=== PATIENT | male | born 1970 | race Caucasian/White ===

== ENCOUNTER 2025-02-23 12:32 | Observation (INO) | payer OTHER, SELFPAY ==
[2025-02-23] VITALS (11 sets, daily range): BP systolic 103–164; BP diastolic 73–99; PULSE 64–104; RESP 16–22; TEMP 36.1–36.7; O2SAT 100; BMI 37.9
--- NOTE | ~2025-02-23 | CT_ITS ---
CLINICAL INDICATION: Staging for renal cancer COMPARISON: None. TECHNIQUE: Multiple contiguous axial images of the chest was performed following the administration o f intravenous contrast. This CT examination was performed utilizing dose reduction techniques. DLP: 918 mGy-cm FINDINGS/OBSERVATIONS: LUNG: The lungs are clear. HEART: The heart is of normal size, without pericardial effusion. MEDIASTINUM: No pathologically enlarged or morphologically suspicious lymph nodes are identified within the medias tinum, bilateral axilla, within the soft tissues of the anterior chest wall. SOFT TISSUES OF THE CHEST: Unremarkable. BONES OF THE CHEST: No acute fracture. No lytic or blastic lesions are identified. IMPRESSION: No evidence of metastatic disease in the chest, as detailed above Reviewed, dictated and finalized at location A.
--- NOTE | ~2025-02-23 | CT_ITS ---
EXAMINATION: CT shoulder LT wo con DATE: 02/25/2025 13:35 INDICATION: Left shoulder pain TECHNIQUE: High resolution computed tomography (CT) of the left shoulder was performed without intrav enous contrast. Additional sagittal and coronal reconstructions were performed. Automated exposure co ntrol and iterative reconstruction technique were employed. The dose-length product was 567.92 mGy-cm . COMPARISON: None FINDINGS: Bone alignment is normal. No fracture. Moderate left glenohumeral osteoarthritis with prominent subar ticular cystic changes along the superior to posterior rim of the glenoid consistent with overlying h igh-grade chondromalacia. No glenohumeral joint effusion. Mild osteoarthritis at the left acromioclav icular joint. There are a few small dystrophic soft tissue calcifications along the greater tuberosit y at the distal supraspinatus and infraspinatus tendons consistent with calcific tendinitis. Visualiz ed portion of the lungs are clear. Heart size is normal. No pathologically enlarged left cervical, ax illary, mediastinal or hilar lymphadenopathy. IMPRESSION: 1. Moderate left glenohumeral osteoarthritis with high-grade chondromalacia along the superior to pos terior glenoid. 2. Left supraspinatus and infraspinatus calcific tendinitis. Reviewed, dictated and finalized at location A. IMPRESSION: 1. Moderate left glenohumeral osteoarthritis with high-grade chondromalacia german ng the superior to posterior glenoid. 2. Left supraspinatus and infraspinatus calcific tendinitis.
--- NOTE | ~2025-02-23 | XR_ITS ---
EXAMINATION: XR chest 1V DATE: 02/23/2025 14:13 INDICATION: Cough and shortness of breath TECHNIQUE: AP view of the chest was obtained. COMPARISON: None FINDINGS: The lungs are clear with no focal airspace opacities, pulmonary edema, pleural effusion or pneumothor ax. The cardiomediastinal silhouette is normal. IMPRESSION: 1. No acute cardiopulmonary disease. Reviewed, dictated and finalized at location B.
--- NOTE | ~2025-02-23 | CT_ITS ---
CTA brain carotid Ordering provider: Abraham Roberts History: . TIA . Progressive weakness Comparison: None Technique: CT angiogram head and neck was performed following timed intravenous injection of contrast . Thin slice axial images and reformatted coronal images were obtained. Three dimensional reformatted images of the brain were also obtained using a [employer] workstation. DLP: 2006.9 mGy-cm FINDINGS: HEAD: --ANTERIOR AND MIDDLE CEREBRAL ARTERIES AND BRANCHES: Normal caliber and contour. --INTERNAL CAROTID ARTERIES: Mild atheromatous disease (right greater than left) but no significant s tenosis. No occlusion. --BASILAR ARTERY AND BRANCHES: Normal caliber and contour. No atheromatous disease. --POSTERIOR CEREBRAL ARTERIES: Normal caliber and contour --POSTERIOR COMMUNICATING ARTERIES: Not well visualized likely related to congenital absence or small size. --ANEURYSM: None visualized. --BRAIN: The ventricles are normal in size, shape and position. There is no mass, mass effect or midline shift. There is no abnormal extra-axial fluid collection or intracranial hemorrhage. 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 Remaining paranasal sinuses are unremarkable. The mastoid air cells are well aerated. No acute displaced fractures within the overlying cranium. NECK: --RIGHT CERVICAL CAROTID SYSTEM: Trace atheromatous disease of the carotid bulb and proximal internal carotid artery without significant stenosis. Percent stenosis per NASCET criteria is 6% No carotid dissection. --LEFT CERVICAL CAROTID SYSTEM: Mild soft appearing atheromatous disease of the carotid bulb and prox imal internal carotid artery without significant stenosis. Percent stenosis per NASCET criteria is 9 %. No carotid dissection. --VERTEBRAL ARTERIES: Calcified bilaterally at their origin, right greater than left. Otherwise sindy l caliber and contour. --VISUALIZED AORTIC ARCH AND BRANCHING VESSELS: Mild atheromatous disease but no significant stenosis . --SOFT TISSUES: Unremarkable --CERVICAL SPINE: Age appropriate degenerative changes. IMPRESSION: 1. Mild atherosclerotic disease detected bilaterally. Percent stenosis per NASCET criteria is 6% on the right (calcified) and 9% on the left (soft appearing). 2. No acute intracranial hemorrhage or suspicious mass effect. Reviewed, dictated and finalized at location A. IMPRESSION: 1. Mild atherosclerotic disease detected bilaterally. Percent stenosis per ALEK CET criteria is 6% on the right (calcified) and 9% on the left (soft appearing ). 2. No acute intracranial hemorrhage or suspicious mass effect.
--- NOTE | ~2025-02-23 | US_ITS ---
EXAMINATION: US renal BI DATE: 02/26/2025 13:52 INDICATION: Acute renal insufficiency TECHNIQUE: Multiple ultrasound grayscale images of the kidneys were obtained. COMPARISON: None. FINDINGS: The right kidney measures 14.7 x 2.1 x 7.4 cm. The left kidney measures 14.5 x 6.9 x 6.5 cm. The kidn eys demonstrate normal echogenicity. 8.8 x 8.2 x 7.9 cm heterogeneously hypoechoic exophytic mass margaret sing from the lower pole of the right kidney concerning for renal cell carcinoma. There is no hydrone phrosis in either kidney. No stones identified. The bladder is normal. IMPRESSION: 1. 8.8 cm exophytic mass which appears to arise from the lower pole the right kidney which is concer verenice for renal cell carcinoma. Recommend pre and postcontrast MRI or CT for further evaluation. Reviewed, dictated and finalized at location A. IMPRESSION: 1. 8.8 cm exophytic mass which appears to arise from the lower pole the right kidney which is concerning for renal cell carcinoma. Recommend pre and postcont rast MRI or CT for further evaluation.
--- NOTE | ~2025-02-23 | CT_ITS ---
CT of the Abdomen and Pelvis: Indication: Right renal mass Technique: 2.5 mm axial scans were obtained through the abdomen and pelvis prior to and following in travenous administration of 100 cc of Omnipaque 350. Dose reduction technique was used on this scan b y utilizing automated exposure control and iterative reconstruction technique. The dose-length produc t (DLP) was 2478.69 mGy-cm. Findings: Scans through the lung bases are unremarkable. The liver, spleen, pancreas, gallbladder, adrenals and left kidney are within normal limits. There is a 9.9 x 8.2 x 7.6 cm heterogeneously enhancing solid mass at the lower pole the right kidney. There is a 4.5 x 3.4 x 4.5 cm extension of the mass into the interpolar region/sinus region of the right ki dney centrally (axial postcontrast image 88 for example). No definite renal vein invasion. No evidenc e of aortic aneurysm. No lymphadenopathy. No bowel obstruction or bowel wall thickening. There is no evidence to suggest acute appendicitis. Images through the pelvis were performed. Urinary bladder unremarkable. No pelvic mass seen. No ascit es. Impression: Large right renal mass, as detailed above, compatible with renal cell carcinoma. surgical/oncologi c consultation required. Reviewed, dictated and finalized at location M. Impression: Large right renal mass, as detailed above, compatible with renal cell carcinoma . surgical/oncologic consultation required.
--- NOTE | 2025-02-23 12:42 | PC.NURSE ---
Pt. states he does not know his weight and he is unable to stand on a scale at this time.
--- NOTE | 2025-02-23 12:51 | ECG_ITS ---
Test Date: 2025-02-23 12:57:17 Measurements Intervals [place] Rate: 106 P: 46 SD: 155 QRS: 46 QRSD: 104 T: 61 QT: 369 QTc: 490 Interpretive Statements SINUS TACHYCARDIA WITH OCCASIONAL VENTRICULAR PREMATURE COMPLEXES WITH OCCASIONAL SUPRAVENTRICULAR PREMATURE COMPLEXES POSSIBLE LEFT ATRIAL ENLARGEMENT [-0.1mV P WAVE IN V1/V2] ABNORMAL ECG Electronically Signed On 02-23-2025 14:07:13 CDT by Patrick Styles M.D.
--- NOTE | 2025-02-23 12:53 | ED_ITS ---
HPI - SOB/Dyspnea General Chief Complaint: Weakness <Leidy Mcnally APRN - Last Filed: 02/23/25 12:57> Stated Complaint: weakness 1.5 weeks, back and shoulder pain <Leidy Mcnally APRN - Last Filed: 02/23/25 12:57> Time Seen by Provider: 02/23/25 12:50 <Leidy Mcnally APRN - Last Filed: 02/23/25 12:57> Focused HPI: Patient is a 55-year-old male who presents to the ER with complaints of weakness, decreased leg strength, nasal drainage, shortness of breath, lower back pain, and wheezing for the past 2 weeks. He denies any chest pain, recent fevers, known sick contacts. Patient denies any medical history relevant to this ER visit. GENERAL: Well-appearing, well-nourished, and in mild distress d/t anxiety. HEAD: Normocephalic, atraumatic. CHEST: Clear to auscultation. ?No respiratory distress. HEART: Regular rate and rhythm.? NEURO: ?Alert and oriented x3. Patient screened in triage and initial orders placed.? ?Additional care and disposition to be based upon?diagnostic testing and treatment. <Leidy Mcnally APRN - Last Filed: 02/23/25 12:57> History of Present Illness HPI Narrative: Agree with HPI <Abraham Roberts MD - Last Filed: 02/27/25 13:13> Related Data Home Medications: Home Medications ?Medication ?Instructions ?Recorded ?Confirmed ?Last Taken ?Type No Home Medications 02/23/25 02/23/25 Unknown History <Leidy Mcnally APRN - Last Filed: 02/23/25 12:57> Allergies/Adverse Reactions: Allergies Allergy/AdvReac Type Severity Reaction Status Date / Time Penicillins Allergy Intermediate Hives Verified 02/23/25 18:41 <Leidy Mcnally APRN - Last Filed: 02/23/25 12:57> Review of Systems 2 Review of Systems: All systems reviewed & are unremarkable except as noted in HPI and below <Abraham Roberts MD - Last Filed: 02/27/25 13:13> Constitutional: Constitutional: Reports no additional constitutional complaints <Abraham Roberts MD - Last Filed: 02/27/25 13:13> Cardiovascular: Cardiovascular: Reports no additional cardiovascular complaints <Abraham Roberts MD - Last Filed: 02/27/25 13:13> Respiratory: Respiratory: Reports no additional respiratory complaints < Abraham Roberts MD - Last Filed: 02/27/25 13:13> Gastrointestinal: Gastrointestinal: Reports no additional gastrointestinal complaints <Abraham Roberts MD - Last Filed: 02/27/25 13:13> Musculoskeletal: Musculoskeletal: Reports no additional musculoskeletal complaints <Abraham Roberts MD - Last Filed: 02/27/25 13:13> PMFSH Past Medical History Medical History: Medical History (Updated 02/27/25 @ 13:13 by Abraham Roberts MD) Diabetic polyneuropathy Diabetes <Leidy Mcnally APRN - Last Filed: 02/23/25 12:57> Family History Family History: Family History Mother Diabetes mellitus <Leidy Mcnally DIRECTOR OF PHYSICAL SECURITY - Last Filed: 02/23/25 12:57> Social History Social History: Social History Smoking status: Former smoker Smokeless tobacco user: chewing tobacco Alcohol intake: never Substance use: never Do You Feel Safe in your Home?: Yes Lack of Transportation: No Lack of Food: Never True Current Housing: I Have Housing Concerned About Future Housing: No Difficulty Paying Gas/Electric Bills: No Difficulty Paying for Meds: No Currently Unemployed: No Education: High School Diploma/GED Difficulty w/ Childcare or Family Care: No Spiritual care concerns: No <Leidy Mcnally DIRECTOR OF PHYSICAL SECURITY - Last Filed: 02/23/25 12:57> Exam 2 Narrative: GENERAL: Anxious-appearing, well-nourished, and in mild distress. HEAD: Normocephalic, atraumatic. ENT: Mucous membranes moist. NECK: Supple. CHEST: Clear to auscultation. No respiratory distress. HEART: Regular rate and rhythm. Normal peripheral pulses. ABDOMEN: Soft, nontender, nondistended. EXTREMITIES: Normal range of motion. No edema. SKIN: Warm, dry, no rash. NEURO: Diffusely tremulous the patient reports is related to anxiety. No upper lower extremity drift. Difficulty with finger-nose testing due to tremor but reports that is baseline. No expressive aphasia. He does stutter due to anxiousness. Alert and oriented x3. Reports chronic neuropathy of legs from diabetes. PSYCH: Very anxious and as PTSD. <Abraham Roberts MD - Last Filed: 02/27/25 13:13> Course Course Emergency Course: Decreased function home and falling due to anxiety/PTSD. Neurology consulted. Admit to hospitalist service. <Abraham Roberts MD - Last Filed: 02/27/25 13:13> Vital Signs Vital signs: Vital Signs Temperature 97.0 F L 02/23/25 12:45 Pulse Rate 64 02/23/25 12:45 Respiratory Rate 22 H 02/23/25 12:45 Blood Pressure 103/73 02/23/25 12:45 Pulse Oximetry 100 02/23/25 12:45 Temperature 97.9 F 02/27/25 05:40 Pulse Rate 95 02/27/25 12:00 Respiratory Rate 20 02/27/25 05:40 Blood Pressure 159/81 H 02/27/25 05:40 Pulse Oximetry 100 02/27/25 05:40 Oxygen Delivery Room Air 02/26/25 20:00 <Leidy Mcnally APRN - Last Filed: 02/23/25 12:57> Vital Signs Temperature 97.0 F L 02/23/25 12:45 Pulse Rate 64 02/23/25 12:45 Respiratory Rate 22 H 02/23/25 12:45 Blood Pressure 103/73 02/23/25 12:45 Pulse Oximetry 100 02/23/25 12:45 Temperature 97.9 F 02/27/25 05:40 Pulse Rate 95 02/27/25 12:00 Respiratory Rate 20 02/27/25 05:40 Blood Pressure 159/81 H 02/27/25 05:40 Pulse Oximetry 100 02/27/25 05:40 Oxygen Delivery Room Air 02/26/25 20:00 <Abraham Roberts MD - Last Filed: 02/27/25 13:13> MDM - SOB/Dyspnea Lab Data Result diagrams: 02/27/25 05:20 02/27/25 05:20 <Leidy Mcnally, DIRECTOR OF PHYSICAL SECURITY - Last Filed: 02/23/25 12:57> Labs: Lab Results 02/23/25 02/23/25 02/23/25 Range/Units 13:01 13:01 13:01 WBC 8.2 (4.5-10.0) K/mm3 RBC 3.81 L (4.6-6.20) M/mm3 Hgb 9.6 L (14.0-18.0) g/dL Hct 29.1 L (42.0-52.0) % MCV 76.4 L (80-100) fl MCH 25.2 L (26-34) pg MCHC 33.0 (32-36) g/dl RDW 14.1 (11.5-14.5) % Plt Count 512 H (150-375) k/mm3 MPV 9.2 (7.4-10.4) fl Immature Gran % (Auto) 0.4 (0-0.5) % Neut % (Auto) 63.4 (45.5-73.1) % Lymph % (Auto) 28.8 (18.3-44.2) % [place] % (Auto) 6.2 (2.6-8.5) % Eos % (Auto) 0.5 (0-4.4) % Baso % (Auto) 0.7 (0.2-1.2) % Lymph # (Auto) 2.37 (0.9-3.2) K/mm3 [place] # (Auto) 0.5 (0.1-0.6) K/mm3 Eos # (Auto) 0.0 (0-0.3) K/mm3 Baso # (Auto) 0.1 (0.0-0.1) K/mm3 Abs Immat Gran (auto) 0.03 (0.00-0.031) K/mm3 Absolute Neuts (auto) 5.2 (1.3-6.7) K/mm3 Absolute Nucleated RBC 0.000 (0.0-0.012) K/mm3 Nucleated RBC % 0.0 (0.0-0.2) % PT 15.0 H (11.1-14.7) Seconds INR 1.2 APTT 32.0 (22.3-36.8) Seconds Sodium 132 L (137-145) mmol/L Potassium 3.7 (3.4-5.0) mmol/L Chloride 99 (98-107) mmol/L Carbon Dioxide 20 L (22-30) mmol/L Anion Gap 13 H (4-12) mmol/L BUN 13 (9-20) mg/dL Creatinine 1.08 (0.7-1.3) mg/dL Estim Creat Clear Calc Not Reportable Estimated GFR > 60 (59 - ) Glucose 242 H (65-110) mg/dL Calcium 9.7 (8.4-10.2) mg/dL Magnesium 1.8 Cancelled (1.6-2.3) mg/dL Total Bilirubin 0.6 (0.2-1.3) mg/dL AST 24 (17-59) U/L ALT 29 (6-50) U/L Alkaline Phosphatase 152 H (38-126) U/L Troponin I 0.033 Cancelled (0.000-0.034) ng/mL Total Protein 7.0 (6.3-8.2) g/dL Albumin 3.4 L (3.5-5.1) g/dL Urine Color (Yellow) Urine Appearance (Clear) Urine pH (5.0-9.0) Ur Specific [place] (1.001-1.035) Urine Protein (Negative) mg/dL Urine Glucose (UA) (Negative) mg/dL Urine Ketones (Negative) mg/dL Ur Blood (Man) (Negative) Urine Nitrate (Negative) Urine Bilirubin (Negative) Urine Urobilinogen (<2.0) mg/dL Leukocyte Esterase Rfl (Negative) ESAU/UL Urine RBC (0-2) /hpf Urine WBC (0-3) /hpf Ur Squamous Epith Cells (Few) /hpf Urine Bacteria /hpf Urine Casts Hyaline Casts (None) /lpf Urine Opiates Screen (Negative) Urine Methadone Screen (Negative) Ur Barbiturates Screen (Negative) Ur Phencyclidine Scrn (Negative) Ur Amphetamine Screen (Negative) U Benzodiazepines Scrn (Negative) Urine Cocaine Screen (Negative) U Cannabinoids Screen (Negative) Influenza A (RT-PCR) Negative (Negative) Influenza B (RT-PCR) Negative (Negative) RSV (RT-PCR) Negative (Negative) SARS-CoV-2 RNA (RT-PCR) Negative (Negative) 02/23/25 Range/Units 15:10 WBC (4.5-10.0) K/mm3 RBC (4.6-6.20) M/mm3 Hgb (14.0-18.0) g/dL Hct (42.0-52.0) % MCV (80-100) fl MCH (26-34) pg MCHC (32-36) g/dl RDW (11.5-14.5) % Plt Count (150-375) k/mm3 MPV (7.4-10.4) fl Immature Gran % (Auto) (0-0.5) % Neut % (Auto) (45.5-73.1) % Lymph % (Auto) (18.3-44.2) % [place] % (Auto) (2.6-8.5) % Eos % (Auto) (0-4.4) % Baso % (Auto) (0.2-1.2) % Lymph # (Auto) (0.9-3.2) K/mm3 [place] # (Auto) (0.1-0.6) K/mm3 Eos # (Auto) (0-0.3) K/mm3 Baso # (Auto) (0.0-0.1) K/mm3 Abs Immat Gran (auto) (0.00-0.031) K/mm3 Absolute Neuts (auto) (1.3-6.7) K/mm3 Absolute Nucleated RBC (0.0-0.012) K/mm3 Nucleated RBC % (0.0-0.2) % PT (11.1-14.7) Seconds INR APTT (22.3-36.8) Seconds Sodium (137-145) mmol/L Potassium (3.4-5.0) mmol/L Chloride (98-107) mmol/L Carbon Dioxide (22-30) mmol/L Anion Gap (4-12) mmol/L BUN (9-20) mg/dL Creatinine (0.7-1.3) mg/dL Estim Creat Clear Calc Estimated GFR (59 - ) Glucose (65-110) mg/dL Calcium (8.4-10.2) mg/dL Magnesium (1.6-2.3) mg/dL Total Bilirubin (0.2-1.3) mg/dL AST (17-59) U/L ALT (6-50) U/L Alkaline Phosphatase (38-126) U/L Troponin I (0.000-0.034) ng/mL Total Protein (6.3-8.2) g/dL Albumin (3.5-5.1) g/dL Urine Color Yellow (Yellow) Urine Appearance Clear (Clear) Urine pH 6.5 (5.0-9.0) Ur Specific [place] 1.012 (1.001-1.035) Urine Protein 3+ H (Negative) mg/dL Urine Glucose (UA) 2+ H (Negative) mg/dL Urine Ketones Trace H (Negative) mg/dL Ur Blood (Man) Trace (Negative) Urine Nitrate Negative (Negative) Urine Bilirubin Negative (Negative) Urine Urobilinogen 0.2 (<2.0) mg/dL Leukocyte Esterase Rfl Negative (Negative) ESAU/UL Urine RBC 3-5 H (0-2) /hpf Urine WBC 0-5 (0-3) /hpf Ur Squamous Epith Cells None seen (Few) /hpf Urine Bacteria None seen /hpf Urine Casts >20 Hyaline Casts Present (None) /lpf Urine Opiates Screen Negative (Negative) Urine Methadone Screen Negative (Negative) Ur Barbiturates Screen Negative (Negative) Ur Phencyclidine Scrn Negative (Negative) Ur Amphetamine Screen Negative (Negative) U Benzodiazepines Scrn Negative (Negative) Urine Cocaine Screen Negative (Negative) U Cannabinoids Screen Negative (Negative) Influenza A (RT-PCR) (Negative) Influenza B (RT-PCR) (Negative) RSV (RT-PCR) (Negative) SARS-CoV-2 RNA (RT-PCR) (Negative) <Leidy Mcnally, DIRECTOR OF PHYSICAL SECURITY - Last Filed: 02/23/25 12:57> Lab Results 02/23/25 02/23/25 02/23/25 Range/Units 13:01 13:01 13:01 WBC 8.2 (4.5-10.0) K/mm3 RBC 3.81 L (4.6-6.20) M/mm3 Hgb 9.6 L (14.0-18.0) g/dL Hct 29.1 L (42.0-52.0) % MCV 76.4 L (80-100) fl MCH 25.2 L (26-34) pg MCHC 33.0 (32-36) g/dl RDW 14.1 (11.5-14.5) % Plt Count 512 H (150-375) k/mm3 MPV 9.2 (7.4-10.4) fl Immature Gran % (Auto) 0.4 (0-0.5) % Neut % (Auto) 63.4 (45.5-73.1) % Lymph % (Auto) 28.8 (18.3-44.2) % [place] % (Auto) 6.2 (2.6-8.5) % Eos % (Auto) 0.5 (0-4.4) % Baso % (Auto) 0.7 (0.2-1.2) % Lymph # (Auto) 2.37 (0.9-3.2) K/mm3 [place] # (Auto) 0.5 (0.1-0.6) K/mm3 Eos # (Auto) 0.0 (0-0.3) K/mm3 Baso # (Auto) 0.1 (0.0-0.1) K/mm3 Abs Immat Gran (auto) 0.03 (0.00-0.031) K/mm3 Absolute Neuts (auto) 5.2 (1.3-6.7) K/mm3 Absolute Nucleated RBC 0.000 (0.0-0.012) K/mm3 Nucleated RBC % 0.0 (0.0-0.2) % PT 15.0 H (11.1-14.7) Seconds INR 1.2 APTT 32.0 (22.3-36.8) Seconds Sodium 132 L (137-145) mmol/L Potassium 3.7 (3.4-5.0) mmol/L Chloride 99 (98-107) mmol/L Carbon Dioxide 20 L (22-30) mmol/L Anion Gap 13 H (4-12) mmol/L BUN 13 (9-20) mg/dL Creatinine 1.08 (0.7-1.3) mg/dL Estim Creat Clear Calc Not Reportable Estimated GFR > 60 (59 - ) Glucose 242 H (65-110) mg/dL Calcium 9.7 (8.4-10.2) mg/dL Magnesium 1.8 Cancelled (1.6-2.3) mg/dL Total Bilirubin 0.6 (0.2-1.3) mg/dL AST 24 (17-59) U/L ALT 29 (6-50) U/L Alkaline Phosphatase 152 H (38-126) U/L Troponin I 0.033 Cancelled (0.000-0.034) ng/mL Total Protein 7.0 (6.3-8.2) g/dL Albumin 3.4 L (3.5-5.1) g/dL Urine Color (Yellow) Urine Appearance (Clear) Urine pH (5.0-9.0) Ur Specific [place] (1.001-1.035) Urine Protein (Negative) mg/dL Urine Glucose (UA) (Negative) mg/dL Urine Ketones (Negative) mg/dL Ur Blood (Man) (Negative) Urine Nitrate (Negative) Urine Bilirubin (Negative) Urine Urobilinogen (<2.0) mg/dL Leukocyte Esterase Rfl (Negative) ESAU/UL Urine RBC (0-2) /hpf Urine WBC (0-3) /hpf Ur Squamous Epith Cells (Few) /hpf Urine Bacteria /hpf Urine Casts Hyaline Casts (None) /lpf Urine Opiates Screen (Negative) Urine Methadone Screen (Negative) Ur Barbiturates Screen (Negative) Ur Phencyclidine Scrn (Negative) Ur Amphetamine Screen (Negative) U Benzodiazepines Scrn (Negative) Urine Cocaine Screen (Negative) U Cannabinoids Screen (Negative) Influenza A (RT-PCR) Negative (Negative) Influenza B (RT-PCR) Negative (Negative) RSV (RT-PCR) Negative (Negative) SARS-CoV-2 RNA (RT-PCR) Negative (Negative) 02/23/25 Range/Units 15:10 WBC (4.5-10.0) K/mm3 RBC (4.6-6.20) M/mm3 Hgb (14.0-18.0) g/dL Hct (42.0-52.0) % MCV (80-100) fl MCH (26-34) pg MCHC (32-36) g/dl RDW (11.5-14.5) % Plt Count (150-375) k/mm3 MPV (7.4-10.4) fl Immature Gran % (Auto) (0-0.5) % Neut % (Auto) (45.5-73.1) % Lymph % (Auto) (18.3-44.2) % [place] % (Auto) (2.6-8.5) % Eos % (Auto) (0-4.4) % Baso % (Auto) (0.2-1.2) % Lymph # (Auto) (0.9-3.2) K/mm3 [place] # (Auto) (0.1-0.6) K/mm3 Eos # (Auto) (0-0.3) K/mm3 Baso # (Auto) (0.0-0.1) K/mm3 Abs Immat Gran (auto) (0.00-0.031) K/mm3 Absolute Neuts (auto) (1.3-6.7) K/mm3 Absolute Nucleated RBC (0.0-0.012) K/mm3 Nucleated RBC % (0.0-0.2) % PT (11.1-14.7) Seconds INR APTT (22.3-36.8) Seconds Sodium (137-145) mmol/L Potassium (3.4-5.0) mmol/L Chloride (98-107) mmol/L Carbon Dioxide (22-30) mmol/L Anion Gap (4-12) mmol/L BUN (9-20) mg/dL Creatinine (0.7-1.3) mg/dL Estim Creat Clear Calc Estimated GFR (59 - ) Glucose (65-110) mg/dL Calcium (8.4-10.2) mg/dL Magnesium (1.6-2.3) mg/dL Total Bilirubin (0.2-1.3) mg/dL AST (17-59) U/L ALT (6-50) U/L Alkaline Phosphatase (38-126) U/L Troponin I (0.000-0.034) ng/mL Total Protein (6.3-8.2) g/dL Albumin (3.5-5.1) g/dL Urine Color Yellow (Yellow) Urine Appearance Clear (Clear) Urine pH 6.5 (5.0-9.0) Ur Specific [place] 1.012 (1.001-1.035) Urine Protein 3+ H (Negative) mg/dL Urine Glucose (UA) 2+ H (Negative) mg/dL Urine Ketones Trace H (Negative) mg/dL Ur Blood (Man) Trace (Negative) Urine Nitrate Negative (Negative) Urine Bilirubin Negative (Negative) Urine Urobilinogen 0.2 (<2.0) mg/dL Leukocyte Esterase Rfl Negative (Negative) ESAU/UL Urine RBC 3-5 H (0-2) /hpf Urine WBC 0-5 (0-3) /hpf Ur Squamous Epith Cells None seen (Few) /hpf Urine Bacteria None seen /hpf Urine Casts >20 Hyaline Casts Present (None) /lpf Urine Opiates Screen Negative (Negative) Urine Methadone Screen Negative (Negative) Ur Barbiturates Screen Negative (Negative) Ur Phencyclidine Scrn Negative (Negative) Ur Amphetamine Screen Negative (Negative) U Benzodiazepines Scrn Negative (Negative) Urine Cocaine Screen Negative (Negative) U Cannabinoids Screen Negative (Negative) Influenza A (RT-PCR) (Negative) Influenza B (RT-PCR) (Negative) RSV (RT-PCR) (Negative) SARS-CoV-2 RNA (RT-PCR) (Negative) <Abraham Roberts MD - Last Filed: 02/27/25 13:13> Imaging Data Radiologist's impression: ITS Impressions Chest X-Ray 02/23/25 14:29 IMPRESSION: 1. No acute cardiopulmonary disease. Head/Neck CTA 02/23/25 17:36 IMPRESSION: 1. Mild atherosclerotic disease detected bilaterally. Percent stenosis per NASCET criteria is 6% on the right (calcified) and 9% on the left (soft appearing). 2. No acute intracranial hemorrhage or suspicious mass effect. <Abraham Roberts MD - Last Filed: 02/27/25 13:13> Discharge Plan Discharge Clinical Impression: Anxiety, Declining functional status <Leidy Mcnally APRN - Last Filed: 02/23/25 12:57> Patient Disposition: Still a Patient <Leidy Mcnally APRN - Last Filed: 02/23/25 12:57> Condition: Stable <Leidy Mcnally APRN - Last Filed: 02/23/25 12:57>
[2025-02-23 13:14] LABS: Basophils Absolute Auto 0.1 K/mm3 (0.0-0.1); Basophils Percent Auto 0.7 % (0.2-1.2); Eosinophils Percent Auto 0.5 % (0-4.4); Hematocrit 29.1 % (42.0-52.0); Hemoglobin 9.6 g/dL (14.0-18.0); Immature Granulocyte Absolute 0.03 K/mm3 (0.00-0.031); Immature Granulocyte Percent A 0.4 % (0-0.5); Lymphocytes Absolute Auto 2.37 K/mm3 (0.9-3.2); Lymphocytes Percent Auto 28.8 % (18.3-44.2); Mean Corpuscular Hemoglobin 25.2 pg (26-34); Mean Corpuscular Volume 76.4 fl (80-100); Mean Platelet Volume 9.2 fl (7.4-10.4); Monocytes Absolute Auto 0.5 K/mm3 (0.1-0.6); Monocytes Percent Auto 6.2 % (2.6-8.5); Neutrophils Absolute Auto 5.2 K/mm3 (1.3-6.7); Neutrophils Percent Auto 63.4 % (45.5-73.1); Platelet Count Result 512 k/mm3 (150-375); Red Blood Count 3.81 M/mm3 (4.6-6.20); Red Cell Distribution Width 14.1 % (11.5-14.5); White Blood Count 8.2 K/mm3 (4.5-10.0)
[2025-02-23 13:25] LABS: INR 1.2
[2025-02-23 13:28] LABS: Alanine Aminotransferase 29 U/L (6-50); Albumin Level 3.4 g/dL (3.5-5.1); Alkaline Phosphatase 152 U/L (38-126); Anion Gap 13 mmol/L (4-12); Aspartate Amino Transferase 24 U/L (17-59); Bilirubin,Total 0.6 mg/dL (0.2-1.3); Blood Urea Nitrogen 13 mg/dL (9-20); Calcium 9.7 mg/dL (8.4-10.2); Carbon Dioxide 20 mmol/L (22-30); Chloride 99 mmol/L (98-107); Estimated Glomerular Filt Rate > 60; Glucose 242 mg/dL (65-110); Magnesium 1.8 mg/dL (1.6-2.3); Potassium 3.7 mmol/L (3.4-5.0); Sodium 132 mmol/L (137-145)
--- OUTSIDE RECORDS SUMMARY | 2025-02-23 13:36 | XMS_ITS | Continuity of Care Document ---
Author Organization [facility] Address [address] [place] [address] Phone Care Team Providers Care Funding Coordinator Name Role Phone Hi Bai MD Unavailable Unavailable Procedures Procedure Date Office/outpatient Visit, New Office/outpatient Visit, New Advance Directives Directive Yes / No Effective Date File Name No Information Encounters Encounter Description Practice Location Reason(s) For Visit Diagnoses Date Provider Providers Copied on Encounter Office/outpat ient Visit, [facility], [address], [place], [place], [id number], [place] tel:[phone] [address] [place] Professional No Information 1 [address] [place], [id number], [place]. tel:[phone] Referring Provider: Hi Santana, [address] [facility] [place], [address] . tel:[phone] Family History Family Member Type Diagnosis Age At Onset No Information Payers Payer name Insurance type Covered alliance party ID Authoriza tion(s) No Information Social History Type Description Quantity Date Captured Comments Sex Male Smoking Status No Information Chief Complaint And Reason For Visit No Information Reason For Referral Reason For Referral No Information History Of Present Illness Encounter Date Complaint History Of Prese nt Illness No Information Functional Status Date Functional Assessmen t No Information Instructions Date Instruction Additional Infor mation No Information Assessments Type Assessment Date No Information Patient Care Teams Name Effective Dates (start - stop) Status Members No Information
--- OUTSIDE RECORDS SUMMARY | 2025-02-23 13:36 | XMS_ITS | Continuity of Care Document ---
Author Name Cayden Bryant Address [address] [place] [address] Organization Unknown Address [address] [place] [address] Medications No known medications Problems No known problems
--- OUTSIDE RECORDS SUMMARY | 2025-02-23 13:36 | XMS_ITS | Continuity of Care Document ---
Author Name Cayden Bryant Address [address] [place] [address] Organization Unknown Address [address] [place] [address] Medications No known medications Problems No known problems
--- OUTSIDE RECORDS SUMMARY | 2025-02-23 13:36 | XMS_ITS | Clinical Summary ---
Author Organization [facility] Address [address] [place] [address] Phone Care Team Providers Care Director Quality Systems Name Role Phone Ochoa Olson Primary Care Provider [phone] Social History Tobacco Use Types Packs/Day Years Used Date Smoking Tobacco: Never Assessed Sex and Gender Information Value Date Recorded Sex Assigned at Not on file Legal Sex Male 1:16 PM CDT Gender Identity Not on file Sexual Orientation Not on file Plan of Treatment Health Maintenance Due Date Last Done Comments Hepatitis C Virus (HCV) Screening 1969 TdaP Immunization 1969 Hepatitis B Immunization (1 of 3 - 19+ 3-dose series) 02/19/1988 Colonoscopy 2014 Colorectal Cancer Screening 2014 Cologuard 2019 Immunochemical Fecal Occult Blood 2019 Pneumococcal Immunization (5 0+ years) (1 of 1 - PCV) 2019 Zoster Immunization (1 of 2) 2019 PSA Discussion 02/19/2024 Influenza Immunization (#1) 2024 SARS-COV-2 Immunization ( - season) 2024 04/28/2021, 03/31/2021 Respiratory Syncytial Virus (RSV) Immunization (Adult) (1 - 1-dose 75+ series) 02/19/2044 Meningococcal Immunization (ACWY) Aged Out No longer eligible b ased on patient's age to complete this topic Pneumococcal Immunization Combined Aged Out No longer eligible b ased on patient's age to complete this topic Rotavirus Immunization Aged Out No lo nger eligible based on patient's age to complete this [place] [address] [employer] Care Teams Director Quality Systems Relationship Specialty Start Date End Date Ochoa Olson, [place] [address] [place] [id number] PCP - General Physician Exhibition Carver 05/14/21
[2025-02-23 13:40] LABS: Troponin I 0.033 ng/mL (0.000-0.034)
[2025-02-23 13:51] LABS: Influenza A QL RT-PCR Negative (Negative); Influenza B QL RT-PCR Negative (Negative); RSV RNA, RT-PCR Negative (Negative); SARS-CoV-2 RNA PCR Negative (Negative)
[2025-02-23 15:32] LABS: Amphetamine Screen Urine Negative (Negative); Barbiturate Screen Urine Negative (Negative); Benzodiazepines Screen Urine Negative (Negative); Cannabinoid Screen Urine Negative (Negative); Cocaine Screen Urine Negative (Negative); Methadone Screen Urine Negative (Negative); Opiate Screen Urine Negative (Negative); Phencyclidine Screen Urine Negative (Negative)
[2025-02-23 15:35] LABS: Add Urine Microscopic? YES; Appearance Urine Clear (Clear); Bacteria Urine None Seen /hpf; Bilirubin Urine Negative (Negative); Blood Urine Trace (Negative); Color Urine Yellow (Yellow); Glucose Urine UA 2+ mg/dL (Negative); Hyaline Casts Urine Present /lpf; Ketones Urine Trace mg/dL (Negative); Leukocyte Esterase Ur Negative LEU/UL (Negative); Nitrate Urine Negative (Negative); Non Pathogenic Casts >20; Protein Urine 3+ mg/dL (Negative); Specific Grav Ur 1.012 (1.001-1.035); Squamous Epithelial Cell Urine None Seen /hpf (Few); Urobilinogen Urine 0.2 mg/dL (<2.0); WBC Urine 0-5 /hpf (0-3); pH Urine 6.5 (5.0-9.0)
--- OUTSIDE RECORDS SUMMARY | 2025-02-23 17:27 | XMS_ITS | Continuity of Care Document ---
Author Organization [facility] Address [address] [place] [address] Phone Care Team Providers Care Upper Doubler Name Role Phone Hi Bai MD Unavailable Unavailable Procedures Procedure Date Office/outpatient Visit, New Office/outpatient Visit, New Advance Directives Directive Yes / No Effective Date File Name No Information Encounters Encounter Description Practice Location Reason(s) For Visit Diagnoses Date Provider Providers Copied on Encounter Office/outpat ient Visit, [facility], [address], [place], [place], [id number], [place] tel:[phone] [address] [place] Professional No Information 1 [address]humika Do[address] [place], [address], [place]. tel:[phone] Referring Provider: Hi Santana, [address] [facility] [place], [address] . tel:[phone] Family History Family Member Type Diagnosis Age At Onset No Information Payers Payer name Insurance type Covered republican ID Authoriza tion(s) No Information Social History [...]
--- OUTSIDE RECORDS SUMMARY | 2025-02-23 17:27 | XMS_ITS | Clinical Summary ---
Author Organization [facility] Address [address] [place] [address] Phone Care Team Providers Care Neonatologist Name Role Phone Ochoa Olson Primary Care Provider [phone] Social History Tobacco Use Types Packs/Day Years [...] age to complete [place] [address] [employer] Care Teams Neonatologist Relationship Specialty Start Date End Date Ochoa Olson, [place] [address] [place] [id number] PCP - General Physician Dolly Pusher 05/14/21
[2025-02-23] MEDS: ASPIRIN 81 MG CHEWABLE TABLET PO (18:42)
[2025-02-23] MEDS: ATORVASTATIN 40 MG TABLET PO (18:42)
--- NOTE | 2025-02-23 20:44 | PC.NURSE ---
2039-REPORT TO NAVA KING ON SECOND MEDICAL FLOOR.
--- NOTE | 2025-02-23 21:01 | ADMGEN ---
This patient, Fuad Claudio, was admitted to Medical Room 247-. Patient/family oriented to hospital policies and general routines including ID bracelet, bed and alarms, visiting hours, pain management, procedures, bathroom and other care routines, personal items, smoking policy, room service/diet, and visiting hours. Information on how to activate the Rapid Response Team has been discussed. Patient/Family are encouraged to report perceived risks to care and to ask questions if they do not understand what they are told or what they should do.
[2025-02-23] MEDS: HYDROcodone/acetaminophen (*CRX) 5-325 MG TABLET 1 TAB PO (21:31)
[2025-02-23 21:38] LABS: Glucose Point of Care 189 mg/dl (65-105)
[2025-02-24] VITALS (11 sets, daily range): BP systolic 124–153; BP diastolic 82–91; PULSE 92–105; RESP 16–19; TEMP 36.4–36.8; O2SAT 98–100
[2025-02-24] MEDS: HYDROcodone/acetaminophen (*CRX) 5-325 MG TABLET 1 TAB PO ×5 (02:20→23:51)
--- NOTE | 2025-02-24 08:06 | P.HP_ITS ---
H&P: HPI History of Present Illness Date/Time: 02/24/25 08:06 Chief Complaint: Generalized weakness/BLE pain with weakness Narrative: Patient is a 55-year-old male 6 who presented to the emergency department with worsening bilateral lower extremity pain and weakness for the last week as well as just generalized weakness. Patient also endorses sinus congestion and shortness of breath. patient denied any chest pain, dizziness, nausea, vomiting, abdominal pain however did endorse increased thirst and urination. at 1st patient denied any past medical history however after further investigation patient stated he had a history of diabetes insulin controlled but had to stop taking his insulin 1 year ago after he lost his insurance and was unable to afford it reports he has not followed up with her primary care physician since. CXR showed no acute cardiopulmonary process and CTA of head and neck with no acute intracranial carotid stenosis 4% 6%. Labs were significant for microcytic anemia with a hemoglobin 9.6, and hyperglycemia with blood sugars close to 300. Patient was admitted for evaluation and treatment of generalized weakness and BLE weakness. ED did consult neurology for any neurological evaluation and ordered a MRI which patient refused. Review of Systems Review of Systems: All systems reviewed & are unremarkable except as noted in HPI and below PMFSH Past Medical History Medical History Diabetes Family History Family History Mother Diabetes mellitus Social History Social History Smoking status: Former smoker Smokeless tobacco user: chewing tobacco Alcohol intake: never Substance use: never Do You Feel Safe in your Home?: Yes Lack of Transportation: No Lack of Food: Never True Current Housing: I Have Housing Concerned About Future Housing: No Difficulty Paying Gas/Electric Bills: No Difficulty Paying for Meds: No Currently Unemployed: No Education: High School Diploma/GED Difficulty w/ Childcare or Family Care: No Spiritual care concerns: No Meds Home Medications and Allergies Home Medications ?Medication ?Instructions ?Recorded ?Confirmed ?Type No Home Medications 02/23/25 02/23/25 History Allergies Allergy/AdvReac Type Severity Reaction Status Date / Time Penicillins Allergy Intermediate Hives Verified 02/23/25 18:41 Vital Signs Vital Signs - 24 hr 02/23/25 12:45 02/23/25 14:21 02/23/25 14:21 Temperature 97.0 F L Pulse Rate 64 103 H 100 Respiratory Rate 22 H 20 22 H Blood Pressure 103/73 153/98 H 153/98 H Pulse Oximetry 100 100 100 Oxygen Delivery 02/23/25 14:30 02/23/25 14:46 02/23/25 15:16 Temperature Pulse Rate 98 96 99 Respiratory Rate 22 H 18 16 Blood Pressure 157/84 H 160/93 H 135/90 Pulse Oximetry 100 Oxygen Delivery 02/23/25 15:31 02/23/25 16:32 02/23/25 16:46 Temperature Pulse Rate 99 104 H 102 H Respiratory Rate 16 21 H 18 Blood Pressure 145/90 H 156/99 H 151/92 H Pulse Oximetry 100 100 100 Oxygen Delivery 02/23/25 17:43 02/23/25 19:45 02/23/25 21:00 Temperature 98.1 F 98 F Pulse Rate 102 H 100 100 Respiratory Rate 19 20 18 Blood Pressure 164/95 H 120/89 153/97 H Pulse Oximetry 100 100 100 Oxygen Delivery 02/24/25 00:00 02/24/25 01:00 02/24/25 04:00 Temperature Pulse Rate 102 H 100 100 Respiratory Rate 18 Blood Pressure Pulse Oximetry 100 Oxygen Delivery Room Air 02/24/25 06:00 Temperature 98 F Pulse Rate 97 Respiratory Rate 18 Blood Pressure 153/82 H Pulse Oximetry 98 Oxygen Delivery Exam Const: General: comfortable and no acute distress Other: Pleasant male obese and appears older then stated age HENMT: Mouth: Yes moist mucous membranes Eyes: General: appearance normal, both eyes and all related structures Pupils: Equal, round and reactive pupils present Neck: Neck: supple and no JVD Resp: Effort & Inspection: normal respiratory effort Auscultation: clear to auscultation bilaterally Cardio: Rate: tachycardic Rhythm: regular rhythm GI: GI Palp: Yes Soft to palpation Auscultation: normal bowel sounds Other: Obese Neuro: General: gait normal Speech: normal speech Motor exam (neuro): Abnormal motor strength present (BLE) Sensory Exam: normal sensation Extrem: General: normal to inspection Psych: Mental Status: mental status grossly normal Affect: normal affect H&P: Results Labs Labs: Short CBC 02/23/25 Range/Units 13:01 WBC 8.2 (4.5-10.0) K/mm3 Hgb 9.6 L (14.0-18.0) g/dL Hct 29.1 L (42.0-52.0) % Plt Count 512 H (150-375) k/mm3 BMP 02/23/25 13:01 Sodium 132 L Potassium 3.7 Chloride 99 Carbon Dioxide 20 L BUN 13 Creatinine 1.08 Glucose 242 H Calcium 9.7 Cardiac Enzymes 02/23/25 02/23/25 Range/Units 13:01 13:01 Troponin I 0.033 Cancelled (0.000-0.034) ng/mL Liver Function 02/23/25 Range/Units 13:01 Total Bilirubin 0.6 (0.2-1.3) mg/dL AST 24 (17-59) U/L ALT 29 (6-50) U/L Alkaline Phosphatase 152 H (38-126) U/L Albumin 3.4 L (3.5-5.1) g/dL Urine 02/23/25 Range/Units 15:10 Urine Color Yellow (Yellow) Urine Appearance Clear (Clear) Urine pH 6.5 (5.0-9.0) Ur Specific [place] 1.012 (1.001-1.035) Urine Protein 3+ H (Negative) mg/dL Urine Glucose (UA) 2+ H (Negative) mg/dL Imaging Chest x-ray: Radiologist's impression: EXAMINATION: XR chest 1V DATE: 02/23/2025 14:13 INDICATION: Cough and shortness of breath TECHNIQUE: AP view of the chest was obtained. COMPARISON: None FINDINGS: The lungs are clear with no focal airspace opacities, pulmonary edema, pleural effusion or pneumothorax. The cardiomediastinal silhouette is normal. IMPRESSION: 1. No acute cardiopulmonary disease. CT scan - head: Radiologist's impression: CTA brain carotid Ordering provider: Abraham Roberts History: . TIA . Progressive weakness Comparison: None Technique: CT angiogram head and neck was performed following timed intravenous injection of contrast. Thin slice axial images and reformatted coronal images were obtained. Three dimensional reformatted images of the brain were also obtained using a [employer] workstation. DLP: 2006.9 mGy-cm FINDINGS: HEAD: --ANTERIOR AND MIDDLE CEREBRAL ARTERIES AND BRANCHES: Normal caliber and contour. --INTERNAL CAROTID ARTERIES: Mild atheromatous disease (right greater than left) but no significant stenosis. No occlusion. --BASILAR ARTERY AND BRANCHES: Normal caliber and contour. No atheromatous disease. --POSTERIOR CEREBRAL ARTERIES: Normal caliber and contour --POSTERIOR COMMUNICATING ARTERIES: Not well visualized likely related to congenital absence or small size. --ANEURYSM: None visualized. --BRAIN: The ventricles are normal in size, shape and position. There is no mass, mass effect or midline shift. There is no abnormal extra-axial fluid collection or intracranial hemorrhage. 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 Remaining paranasal sinuses are unremarkable. The mastoid air cells are well aerated. No acute displaced fractures within the overlying cranium. NECK: --RIGHT CERVICAL CAROTID SYSTEM: Trace atheromatous disease of the carotid bulb and proximal internal carotid artery without significant stenosis. Percent stenosis per NASCET criteria is 6% No carotid dissection. --LEFT CERVICAL CAROTID SYSTEM: Mild soft appearing atheromatous disease of the carotid bulb and proximal internal carotid artery without significant stenosis. Percent stenosis per NASCET criteria is 9%. No carotid dissection. --VERTEBRAL ARTERIES: Calcified bilaterally at their origin, right greater than left. Otherwise normal caliber and contour. --VISUALIZED AORTIC ARCH AND BRANCHING VESSELS: Mild atheromatous disease but no significant stenosis. --SOFT TISSUES: Unremarkable --CERVICAL SPINE: Age appropriate degenerative changes. IMPRESSION: 1. Mild atherosclerotic disease detected bilaterally. Percent stenosis per NASCET criteria is 6% on the right (calcified) and 9% on the left (soft appearing). 2. No acute intracranial hemorrhage or suspicious mass effect. Assessment and Plan Assessment and plan (1) Diabetes: Code(s): E11.9 - Type 2 diabetes mellitus without complications Status: Acute Assessment and Plan: patient reported he was previously diagnosed with diabetes type 2 insulin controlled previously on 30 units Lantus as well as sliding scale however 1 year ago patient lost his insurance and it has a follow-up with the primary care physician or taken his insulin since * Accu-Cheks a.c. HS * sliding scale insulin * Started on 27 untis Lantus HS * A1C 11 * lipid panel * Diabetic diet * consult to certified adapted physical educator * encourage lifestyle modifications and weight loss * started on low-dose losartan and atorvastatin * Watch for hypoglycemia/hypoglycemic protocol ordered * patient is going to need a glucometer, strips and pen needles the discharge as well as orders for long-acting and short-acting insulin (2) Leg weakness, bilateral: Code(s): R29.898 - Other symptoms and signs involving the musculoskeletal system Status: Acute Assessment and Plan: lower leg weakness and pain likely secondary to uncontrolled diabetes with peripheral vascular disease as well as weakness contributing to anemia * resumed insulin * CT head 2 with intracranial process * started low-dose gabapentin will see if this improves patient bilateral lower extremity pain * neurology was consulted * MRI had been ordered patient refused * (3) Microcytic anemia: Code(s): D50.9 - Iron deficiency anemia, unspecified Status: Acute Assessment and Plan: patient with microcytic iron deficiency anemia noted in followed up with iron panel * started patient on ferrous sulfate p.o. b.i.d. (4) Hypertension: Code(s): I10 - Essential (primary) hypertension Status: Acute Assessment and Plan: patient was hypertensive upon admission * started patient 25 mg losartan * monitor BP per unit protocol * and increase losartan if needed Plan Code status: Full code per patient DVT prophylaxis: SCD Stress ulcer prophylaxis: Protonix 40 daily PT/OT notes: pending Disposition: patient was admitted to the medical unit for further evaluation treatment of generalized weakness and bilateral lower extremity weakness with pain worsening for a week. Patient has been uncontrolled diabetic for over a year will need all new medications upon discharge has not been taking any medications or followed up with a primary care physician in over a year after he lost his insurance. PT/ OT pending for any recommendations for discharge plans. Quality VTE Prophylaxis VTE prophylaxis: mechanical ordered -Patient's previous records reviewed on admission -ER notes reviewed in detail on admission -discussed all findings and current treatment plan with patient/Family/POA -Consultations reviewed for recommendations -Patient's disposition for safe discharge discussed with case investigator Dictation performed by [employer] direct speech recognition software, therefore psychiatric specialist variants and typographical errors may occur. Hospitalist MIPS Advance Care Plan I have confirmed that the patient's Advanced Care Plan is present, code status is documented, or surrogate decision maker is listed in patient medical record.: Yes Medication Reconciliation I have utilized all available resources to obtain, update and review the patients current medications (includes all prescriptions, OTC, herbals, cannabis, and nutritional supplements).: Yes The patient is not eligible for med reconciliation; the patient is in a emergent medical situation where delaying treatment would jeopardize the patients [facility] No
[2025-02-24 08:16] LABS: Glucose Point of Care 227 mg/dl (65-105)
[2025-02-24] MEDS: INSULIN ASPART (*BKC) 100 UNITS/ML SUB-Q ×2 (08:25→17:06)
[2025-02-24 08:50] LABS: Basophils Absolute Auto 0.1 K/mm3 (0.0-0.1); Basophils Percent Auto 0.9 % (0.2-1.2); Eosinophils Absolute Auto 0.1 K/mm3 (0-0.3); Eosinophils Percent Auto 1.2 % (0-4.4); Hematocrit 31.4 % (42.0-52.0); Hemoglobin 10.2 g/dL (14.0-18.0); Immature Granulocyte Absolute 0.03 K/mm3 (0.00-0.031); Immature Granulocyte Percent A 0.4 % (0-0.5); Lymphocytes Absolute Auto 2.08 K/mm3 (0.9-3.2); Lymphocytes Percent Auto 31.1 % (18.3-44.2); Mean Corpuscular HGB Conc 32.5 g/dl (32-36); Mean Corpuscular Hemoglobin 25.2 pg (26-34); Mean Corpuscular Volume 77.5 fl (80-100); Mean Platelet Volume 9.4 fl (7.4-10.4); Monocytes Absolute Auto 0.6 K/mm3 (0.1-0.6); Monocytes Percent Auto 9.1 % (2.6-8.5); Neutrophils Absolute Auto 3.8 K/mm3 (1.3-6.7); Neutrophils Percent Auto 57.3 % (45.5-73.1); Platelet Count Result 463 k/mm3 (150-375); Red Blood Count 4.05 M/mm3 (4.6-6.20); Red Cell Distribution Width 14.3 % (11.5-14.5); White Blood Count 6.7 K/mm3 (4.5-10.0)
[2025-02-24 08:55] LABS: Alanine Aminotransferase 25 U/L (6-50); Albumin Level 3.4 g/dL (3.5-5.1); Alkaline Phosphatase 132 U/L (38-126); Anion Gap 8 mmol/L (4-12); Aspartate Amino Transferase 23 U/L (17-59); Bilirubin,Total 0.4 mg/dL (0.2-1.3); Blood Urea Nitrogen 18 mg/dL (9-20); Calcium 9.6 mg/dL (8.4-10.2); Carbon Dioxide 25 mmol/L (22-30); Chloride 100 mmol/L (98-107); Cholesterol 178 mg/dL (0-200); Estimated CRCL calculation 78 ml/min; Estimated Glomerular Filt Rate 53; Glucose 231 mg/dL (65-110); HDL Direct 31 mg/dL; Potassium 3.6 mmol/L (3.4-5.0); Sodium 133 mmol/L (137-145); Triglycerides 140 mg/dL (<150)
[2025-02-24 09:06] LABS: LDL Cholesterol Direct 98 mg/dL
[2025-02-24 09:57] LABS: Hemoglobin A1C 11.1 % (<5.7)
[2025-02-24 10:05] LABS: Iron 27 ug/dL (49-181)
[2025-02-24 10:14] LABS: Percent Iron Saturation 12 % (20-50)
--- NOTE | 2025-02-24 11:28 | P.CONNEU_ITS ---
Assessment and Plan Assessment and plan (1) Severe anxiety: Code(s): F41.9 - Anxiety disorder, unspecified Status: Acute Plan 1. With negative CTA for any surgical stenotic lesion extra or intracranial, normal routine blood studies except being anemic with hemoglobin of 9.1, and blood sugar definitely elevated numbness to be followed by the family physician 2. Definitely extremely anxious and nervous and shaky on today's exam without any obvious signs of Parkinson's disease likely related to the anxiety, extremely concerned about being discharged probably discharge planning needs to be discussed with him but there is no neurological deficit at this particular time. Consult date: 02/25/25 HPI: Fuad Claudio is a 55 year old male admitted to the hospital through the emergency room for the complaints of back and shoulder pain with weakness of 1 and half week duration along with the nasal drainage,, and wheezing for the last 2 weeks, known to be allergic to penicillin, initial vital signs normal, except respiratory rate of 22, patient is a former smoker by history, and has no home medications, routine lab studies are with hemoglobin 9.6 with hematocrit 29.1 and platelet count of 5 1 2, blood sugar of 242, normal hepatic enzymes except alkaline phos of 152, and albumin of 3.4, UA with the 3+ proteinuria and 2+ glycosuria, initial assessment of lower extremity weakness bilaterally along with the iron deficiency anemia, head and neck CTA with 6% on the right 90% in the left atherosclerotic disease bilaterally but no intracranial involvement, x- ray chest negative, Review of Systems 2 Review of Systems: All systems reviewed & are unremarkable except as noted in HPI and below PMFSH Past Medical History Medical History Diabetes Family History Family History Mother Diabetes mellitus Social History Social History Smoking status: Former smoker Smokeless tobacco user: chewing tobacco Alcohol intake: never Substance use: never Do You Feel Safe in your Home?: Yes Lack of Transportation: No Lack of Food: Never True Current Housing: I Have Housing Concerned About Future Housing: No Difficulty Paying Gas/Electric Bills: No Difficulty Paying for Meds: No Currently Unemployed: No Education: High School Diploma/GED Difficulty w/ Childcare or Family Care: No Spiritual care concerns: No Meds Home Medications and Allergies Home Medications ?Medication ?Instructions ?Recorded ?Confirmed ?Type No Home Medications 02/23/25 02/23/25 History Allergies Allergy/AdvReac Type Severity Reaction Status Date / Time Penicillins Allergy Intermediate Hives Verified 02/23/25 18:41 Vital Signs Vital Signs - 24 hr 02/23/25 12:45 02/23/25 14:21 02/23/25 14:21 Temperature 36.1 C L Pulse Rate 64 103 H 100 Respiratory Rate 22 H 20 22 H Blood Pressure 103/73 153/98 H 153/98 H Pulse Oximetry 100 100 100 Oxygen Delivery 02/23/25 14:30 02/23/25 14:46 02/23/25 15:16 Temperature Pulse Rate 98 96 99 Respiratory Rate 22 H 18 16 Blood Pressure 157/84 H 160/93 H 135/90 Pulse Oximetry 100 Oxygen Delivery 02/23/25 15:31 02/23/25 16:32 02/23/25 16:46 Temperature Pulse Rate 99 104 H 102 H Respiratory Rate 16 21 H 18 Blood Pressure 145/90 H 156/99 H 151/92 H Pulse Oximetry 100 100 100 Oxygen Delivery 02/23/25 17:43 02/23/25 19:45 02/23/25 21:00 Temperature 36.7 C 36.6 C Pulse Rate 102 H 100 100 Respiratory Rate 19 20 18 Blood Pressure 164/95 H 120/89 153/97 H Pulse Oximetry 100 100 100 Oxygen Delivery 02/24/25 00:00 02/24/25 01:00 02/24/25 04:00 Temperature Pulse Rate 102 H 100 100 Respiratory Rate 18 Blood Pressure Pulse Oximetry 100 Oxygen Delivery Room Air 02/24/25 06:00 02/24/25 08:04 02/24/25 08:35 Temperature 36.6 C Pulse Rate 97 105 H Respiratory Rate 18 18 Blood Pressure 153/82 H Pulse Oximetry 98 98 Oxygen Delivery Room Air Exam 2 Narrative: Awake alert cooperative in no obvious acute distress, head normocephalic with no bruit, ear nose throat examination normal, neck supple with no cervical bruit no thyromegaly no lymphadenopathy, heart regular with no murmur, lungs clear abdomen soft neurologically awake alert oriented his speech not dysphasic not dysarthric not dysphonic pupils round regular feels the vision full extraocular movements full face symmetrical tongue midline motor examination revealed him to have decreased strength in both lower extremity with decreased sensation plantar responses question and some difficulty in performing [id number] to finger. Noted to be extremely shaky all over his body Results Labs 02/25/25 04:58 02/25/25 04:58 Labs: Short CBC 02/23/25 02/24/25 Range/Units 13:01 08:22 WBC 8.2 6.7 (4.5-10.0) K/mm3 Hgb 9.6 L 10.2 L (14.0-18.0) g/dL Hct 29.1 L 31.4 L (42.0-52.0) % Plt Count 512 H 463 H (150-375) k/mm3 BMP 02/23/25 02/24/25 13:01 08:22 Sodium 132 L 133 L Potassium 3.7 3.6 Chloride 99 100 Carbon Dioxide 20 L 25 BUN 13 18 Creatinine 1.08 1.39 H Glucose 242 H 231 H Calcium 9.7 9.6 Cardiac Enzymes 02/23/25 02/23/25 Range/Units 13:01 13:01 Troponin I 0.033 Cancelled (0.000-0.034) ng/mL Liver Function 02/23/25 02/24/25 Range/Units 13:01 08:22 Total Bilirubin 0.6 0.4 (0.2-1.3) mg/dL AST 24 23 (17-59) U/L ALT 29 25 (6-50) U/L Alkaline Phosphatase 152 H 132 H (38-126) U/L Albumin 3.4 L 3.4 L (3.5-5.1) g/dL Urine 02/23/25 Range/Units 15:10 Urine Color Yellow (Yellow) Urine Appearance Clear (Clear) Urine pH 6.5 (5.0-9.0) Ur Specific [place] 1.012 (1.001-1.035) Urine Protein 3+ H (Negative) mg/dL Urine Glucose (UA) 2+ H (Negative) mg/dL
[2025-02-24 11:55] LABS: Glucose Point of Care 196 mg/dl (65-105)
[2025-02-24] MEDS: GABAPENTIN 100 MG CAPSULE PO ×2 (14:44→17:06)
[2025-02-24] MEDS: LOSARTAN POTASSIUM 25 MG TABLET PO (14:44)
[2025-02-24 16:51] LABS: Glucose Point of Care 217 mg/dl (65-105)
[2025-02-24] MEDS: FERROUS SULFATE 325 MG TABLET DR PO (17:06)
[2025-02-24] MEDS: INSULIN GLARGINE (*BKC) 100 UNITS/ML 27 UNITS SUB-Q (20:02)
[2025-02-24 21:13] LABS: Glucose Point of Care 176 mg/dl (65-105)
[2025-02-24 23:57] LABS: Glucose Point of Care 202 mg/dl (65-105)
[2025-02-25] VITALS (9 sets, daily range): BP systolic 127–133; BP diastolic 68–78; PULSE 82–102; RESP 18; TEMP 36.1–36.7; O2SAT 99–100
[2025-02-25] MEDS: HYDROcodone/acetaminophen (*CRX) 5-325 MG TABLET 1 TAB PO ×4 (04:01→17:43)
[2025-02-25 05:28] LABS: Basophils Absolute Auto 0.1 K/mm3 (0.0-0.1); Basophils Percent Auto 0.9 % (0.2-1.2); Eosinophils Absolute Auto 0.1 K/mm3 (0-0.3); Eosinophils Percent Auto 1.4 % (0-4.4); Hematocrit 29.3 % (42.0-52.0); Hemoglobin 9.1 g/dL (14.0-18.0); Immature Granulocyte Absolute 0.03 K/mm3 (0.00-0.031); Immature Granulocyte Percent A 0.5 % (0-0.5); Mean Corpuscular HGB Conc 31.1 g/dl (32-36); Mean Corpuscular Hemoglobin 24.5 pg (26-34); Mean Corpuscular Volume 78.8 fl (80-100); Mean Platelet Volume 9.2 fl (7.4-10.4); Monocytes Absolute Auto 0.6 K/mm3 (0.1-0.6); Monocytes Percent Auto 8.7 % (2.6-8.5); Neutrophils Absolute Auto 3.9 K/mm3 (1.3-6.7); Neutrophils Percent Auto 58.5 % (45.5-73.1); Platelet Count Result 390 k/mm3 (150-375); Red Blood Count 3.72 M/mm3 (4.6-6.20); Red Cell Distribution Width 14.1 % (11.5-14.5); White Blood Count 6.7 K/mm3 (4.5-10.0)
[2025-02-25 05:37] LABS: Alanine Aminotransferase 24 U/L (6-50); Albumin Level 3.2 g/dL (3.5-5.1); Alkaline Phosphatase 137 U/L (38-126); Anion Gap 10 mmol/L (4-12); Aspartate Amino Transferase 26 U/L (17-59); Bilirubin,Total 0.4 mg/dL (0.2-1.3); Blood Urea Nitrogen 18 mg/dL (9-20); Calcium 9.3 mg/dL (8.4-10.2); Carbon Dioxide 24 mmol/L (22-30); Chloride 99 mmol/L (98-107); Estimated CRCL calculation 79 ml/min; Estimated Glomerular Filt Rate 54; Glucose 183 mg/dL (65-110); Potassium 3.9 mmol/L (3.4-5.0); Sodium 133 mmol/L (137-145)
[2025-02-25 07:59] LABS: Glucose Point of Care 175 mg/dl (65-105)
[2025-02-25] MEDS: ATORVASTATIN 20 MG TABLET PO (08:03)
[2025-02-25] MEDS: FERROUS SULFATE 325 MG TABLET DR PO ×2 (08:03→17:11)
[2025-02-25] MEDS: GABAPENTIN 100 MG CAPSULE PO ×3 (08:03→17:11)
[2025-02-25 11:40] LABS: Glucose Point of Care 236 mg/dl (65-105)
[2025-02-25] MEDS: ALPRAZolam (*CRX) 0.25 MG TABLET PO (12:05)
[2025-02-25] MEDS: INSULIN ASPART (*BKC) 100 UNITS/ML SUB-Q ×2 (12:05→17:10)
--- NOTE | 2025-02-25 12:26 | P.PNIM_ITS ---
Progress Note: A&P Assessment and Plan (1) Diabetes: Code(s): E11.9 - Type 2 diabetes mellitus without complications Status: Acute Assessment and Plan: patient reported he was previously diagnosed with diabetes type 2 insulin controlled previously on 30 units Lantus as well as sliding scale however 1 year ago patient lost his insurance and it has a follow-up with the primary care physician or taken his insulin since * Accu-Cheks a.c. HS * sliding scale insulin * Started on 27 untis Lantus HS * A1C 11 * lipid panel * Diabetic diet * consult to cosmetology educator * encourage lifestyle modifications and weight loss * continue atorvastatin * Watch for hypoglycemia/hypoglycemic protocol ordered * patient is going to need a glucometer, strips and pen needles the discharge as well as orders for long-acting and short-acting insulin (2) Leg weakness, bilateral: Code(s): R29.898 - Other symptoms and signs involving the musculoskeletal system Status: Chronic Assessment and Plan: lower leg weakness and pain likely secondary to uncontrolled diabetes with peripheral vascular disease as well as weakness contributing to anemia * resumed insulin * CT head negative for acute abnormality * started low-dose gabapentin will see if this improves patient bilateral lower extremity pain * neurology was consulted * MRI had been ordered patient refused * (3) Microcytic anemia: Code(s): D50.9 - Iron deficiency anemia, unspecified Status: Acute Assessment and Plan: patient with microcytic iron deficiency anemia * started patient on ferrous sulfate p.o. b.i.d. (4) Hypertension: Code(s): I10 - Essential (primary) hypertension Status: Acute Assessment and Plan: patient was hypertensive upon admission hold losartan with Humberto * monitor BP per unit protocol * Plan Code status: Full code per patient DVT prophylaxis: SCD Stress ulcer prophylaxis: Protonix 40 daily PT/OT notes: pending Disposition: patient was admitted to the medical unit for further evaluation treatment of generalized weakness and bilateral lower extremity weakness wand L shoulder pain. will follow CT L shoulder. PT/ OT ordered Subjective Date/time seen: 02/25/25 12:26 Interval history: per HPI: Patient is a 55-year-old male 6 who presented to the emergency department with worsening bilateral lower extremity pain and weakness for the last week as well as just generalized weakness. Patient also endorses sinus congestion and shortness of breath. patient denied any chest pain, dizziness, nausea, vomiting, abdominal pain however did endorse increased thirst and urination. at 1st patient denied any past medical history however after further investigation patient stated he had a history of diabetes insulin controlled but had to stop taking his insulin 1 year ago after he lost his insurance and was unable to afford it reports he has not followed up with her primary care physician since. CXR showed no acute cardiopulmonary process and CTA of head and neck with no acute intracranial carotid stenosis 4% 6%. Labs were significant for microcytic anemia with a hemoglobin 9.6, and hyperglycemia with blood sugars close to 300. Patient was admitted for evaluation and treatment of generalized weakness and BLE weakness. ED did consult neurology for any neurological evaluation and ordered a MRI which patient refused. 02/25/25 Patient was seen and examined at bedside. Mainly complaining of left shoulder pain. Short of the breath better. Denies any chest pain, abdominal pain, nausea vomiting. WBC 6.7, hemoglobin 9.1, sodium 133, creatinine 1.36. Patient refused MRI. Refusing CT of shoulder. Will get x-ray of shoulder. We will order PT OT Review of Systems Review of Systems: All systems reviewed & are unremarkable except as noted in HPI and below Exam Const: General: comfortable and no acute distress Other: Pleasant male obese and appears older then stated age HENMT: Mouth: Yes moist mucous membranes Eyes: General: appearance normal, both eyes and all related structures Pupils: Equal, round and reactive pupils present Neck: Neck: supple and no JVD Resp: Effort & Inspection: normal respiratory effort Auscultation: clear to auscultation bilaterally Cardio: Rate: tachycardic Rhythm: regular rhythm GI: Auscultation: normal bowel sounds Other: Obese Neuro: General: gait normal Cranial nerves: Yes Equal, round and reactive pupils present Speech: normal speech Motor exam (neuro): Abnormal motor strength present (BLE) Sensory Exam: normal sensation Extrem: General: normal to inspection Other: Decreased ROM of left upper extremity Psych: Mental Status: mental status grossly normal Affect: normal affect Objective Data Vital Signs Vital Signs: Vital Signs - 24 hr 02/24/25 14:00 02/24/25 16:04 02/24/25 20:00 Temperature 98.2 F Pulse Rate 103 H 99 Respiratory Rate 19 Blood Pressure 124/82 Pulse Oximetry 100 Oxygen Delivery Room Air 02/24/25 20:00 02/24/25 20:42 02/25/25 00:00 Temperature 97.5 F L Pulse Rate 102 H 92 102 H Respiratory Rate 16 Blood Pressure 131/91 H Pulse Oximetry 100 Oxygen Delivery 02/25/25 04:00 02/25/25 05:20 02/25/25 08:00 Temperature 97 F L Pulse Rate 102 H 86 Respiratory Rate 18 Blood Pressure 133/78 Pulse Oximetry 100 Oxygen Delivery Room Air 02/25/25 08:00 02/25/25 12:00 Temperature Pulse Rate 102 H 98 Respiratory Rate Blood Pressure Pulse Oximetry Oxygen Delivery Intake/Output Intake/Output: Intake & Output 02/22/25 02/23/25 02/24/25 02/25/25 23:59 23:59 23:59 23:59 Intake Total 1412 690 Output Total 1600 500 Balance -188 190 Meds/Results Medications: Active Medications Generic Name Dose Route Start Last Admin Trade Name Freq PRN Reason Stop Dose Admin Acetaminophen 650 mg 02/23/25 19:01 Acetaminophen 325 Mg Tablet PO Q4H PRN Mild Pain (1-3) or Fever Hydrocodone Bitart/Acetaminophen 1 tab 02/23/25 19:01 02/25/25 12:05 Hydrocodone/Acetaminophen (*Crx) 5-325 Mg Tablet PO 1 tab Q4H PRN Administration Pain Rated 4-6 Alprazolam 0.25 mg 02/25/25 11:27 02/25/25 12:05 Alprazolam (*Crx) 0.25 Mg Tablet PO 0.25 mg TID PRN Administration Anxiety Atorvastatin Calcium 20 mg 02/25/25 09:00 02/25/25 08:03 Atorvastatin 20 Mg Tablet PO 20 mg DAILY SHIRA Administration Dextrose 12.5 gm 02/24/25 08:09 Dextrose 50% 25 Gm/50 Ml Syringe IV PUSH PRN PRN Hypoglycemia Protocol Ferrous Sulfate 325 mg 02/24/25 17:00 02/25/25 08:03 Ferrous Sulfate [address] PO 325 mg BID SHIRA Administration Gabapentin 100 mg 02/24/25 14:00 02/25/25 08:03 Gabapentin 100 Mg Capsule PO 100 mg TID SHIRA Administration Glucagon 1 mg 02/24/25 08:09 Glucagon For Inj 1 Mg Vial IM PRN PRN Hypoglycemia Protocol Glucose 15 gm 02/24/25 08:09 Glucose Oral Gel 15 Gm Of Glucse In 37.5 Gm Tube PO PRN PRN Hypoglycemia Protocol Dextrose 1,000 mls @ 100 mls/hr 02/24/25 08:09 Dextrose 5% 1,000 Ml IVPB PRN PRN Hypoglycemia Protocol Insulin Aspart 2 - 5 units 02/24/25 08:00 02/25/25 12:05 Insulin Aspart (*Bkc) 100 Units/Ml SUB-Q 2 units TIDWM SHIRA Administration Protocol Insulin Glargine 27 units 02/24/25 21:00 02/24/25 20:02 Insulin Glargine (*Bkc) 100 Units/Ml 0.2 units/kg (27 units) 27 units SUB-Q Administration [facility] Losartan Potassium 25 mg 02/24/25 13:45 02/24/25 14:44 Losartan Potassium 25 Mg Tablet PO 25 mg DAILY SHIRA Administration Miscellaneous Information 1 each 02/25/25 00:01 Xanax 0.25mg And 0.5 Mg Have Duplicate Prn Indications. Please Clarify When To Use Which ( XX 03/27/25 00:00 CLARIFY SHIRA Ondansetron HCl 4 mg 02/23/25 19:01 Ondansetron Inj 4 Mg/2 Ml Vial IV PUSH Q4H PRN Nausea Radiology Results: ITS Impressions Chest X-Ray 02/23/25 14:29 IMPRESSION: 1. No acute cardiopulmonary disease. Head/Neck CTA 02/23/25 17:36 IMPRESSION: 1. Mild atherosclerotic disease detected bilaterally. Percent stenosis per NASCET criteria is 6% on the right (calcified) and 9% on the left (soft appearing). 2. No acute intracranial hemorrhage or suspicious mass effect. Labs Labs: Laboratory Results - last 24 hr 02/24/25 02/24/25 02/24/25 16:48 20:02 23:54 WBC RBC Hgb Hct MCV MCH MCHC RDW Plt Count MPV Immature Gran % (Auto) Neut % (Auto) Lymph % (Auto) [place] % (Auto) Eos % (Auto) Baso % (Auto) Lymph # (Auto) [place] # (Auto) Eos # (Auto) Baso # (Auto) Abs Immat Gran (auto) Absolute Neuts (auto) Absolute Nucleated RBC Nucleated RBC % Sodium Potassium Chloride Carbon Dioxide Anion Gap BUN Creatinine Estim Creat Clear Calc Estimated GFR Glucose POC Capillary Glucose 217 H 176 H 202 H Calcium Total Bilirubin AST ALT Alkaline Phosphatase Total Protein Albumin 02/25/25 02/25/25 02/25/25 04:58 07:56 11:36 WBC 6.7 RBC 3.72 L Hgb 9.1 L Hct 29.3 L MCV 78.8 L MCH 24.5 L MCHC 31.1 L RDW 14.1 Plt Count 390 H MPV 9.2 Immature Gran % (Auto) 0.5 Neut % (Auto) 58.5 Lymph % (Auto) 30.0 [place] % (Auto) 8.7 H Eos % (Auto) 1.4 Baso % (Auto) 0.9 Lymph # (Auto) 2.00 [place] # (Auto) 0.6 Eos # (Auto) 0.1 Baso # (Auto) 0.1 Abs Immat Gran (auto) 0.03 Absolute Neuts (auto) 3.9 Absolute Nucleated RBC 0.000 Nucleated RBC % 0.0 Sodium 133 L Potassium 3.9 Chloride 99 Carbon Dioxide 24 Anion Gap 10 BUN 18 Creatinine 1.36 H Estim Creat Clear Calc 79 Estimated GFR 54 L Glucose 183 H POC Capillary Glucose 175 H 236 H Calcium 9.3 Total Bilirubin 0.4 AST 26 ALT 24 Alkaline Phosphatase 137 H Total Protein 7.0 Albumin 3.2 L Quality VTE Prophylaxis VTE prophylaxis: mechanical ordered
--- NOTE | 2025-02-25 13:53 | PCPTNOTE ---
Patient refused therapy evaluation 1993 due to fatigue despite encouragement from therapist. Patient states he will be willing to work with therapy tomorrow.
[2025-02-25 17:01] LABS: Glucose Point of Care 228 mg/dl (65-105)
[2025-02-25] MEDS: INSULIN GLARGINE (*BKC) 100 UNITS/ML 27 UNITS SUB-Q (20:00)
[2025-02-25 21:10] LABS: Glucose Point of Care 214 mg/dl (65-105)
[2025-02-26] VITALS (10 sets, daily range): BP systolic 126–151; BP diastolic 69–86; PULSE 88–115; RESP 16; TEMP 36.4–36.7; O2SAT 94–100
[2025-02-26] MEDS: HYDROcodone/acetaminophen (*CRX) 5-325 MG TABLET 1 TAB PO ×4 (00:50→20:36)
[2025-02-26] MEDS: ALPRAZolam (*CRX) 0.25 MG TABLET PO ×3 (00:51→12:57)
[2025-02-26 05:10] LABS: Basophils Absolute Auto 0.1 K/mm3 (0.0-0.1); Basophils Percent Auto 0.7 % (0.2-1.2); Eosinophils Absolute Auto 0.1 K/mm3 (0-0.3); Eosinophils Percent Auto 1.2 % (0-4.4); Hematocrit 28.5 % (42.0-52.0); Immature Granulocyte Absolute 0.03 K/mm3 (0.00-0.031); Immature Granulocyte Percent A 0.4 % (0-0.5); Lymphocytes Absolute Auto 1.77 K/mm3 (0.9-3.2); Mean Corpuscular HGB Conc 31.6 g/dl (32-36); Mean Corpuscular Hemoglobin 25.1 pg (26-34); Mean Corpuscular Volume 79.4 fl (80-100); Mean Platelet Volume 9.4 fl (7.4-10.4); Monocytes Absolute Auto 0.6 K/mm3 (0.1-0.6); Monocytes Percent Auto 9.3 % (2.6-8.5); Neutrophils Absolute Auto 4.3 K/mm3 (1.3-6.7); Neutrophils Percent Auto 62.4 % (45.5-73.1); Platelet Count Result 387 k/mm3 (150-375); Red Blood Count 3.59 M/mm3 (4.6-6.20); Red Cell Distribution Width 14.1 % (11.5-14.5); White Blood Count 6.8 K/mm3 (4.5-10.0)
[2025-02-26 05:24] LABS: Alanine Aminotransferase 22 U/L (6-50); Albumin Level 3.1 g/dL (3.5-5.1); Alkaline Phosphatase 140 U/L (38-126); Anion Gap 9 mmol/L (4-12); Aspartate Amino Transferase 25 U/L (17-59); Bilirubin,Total 0.4 mg/dL (0.2-1.3); Blood Urea Nitrogen 23 mg/dL (9-20); Carbon Dioxide 24 mmol/L (22-30); Chloride 98 mmol/L (98-107); Estimated CRCL calculation 74 ml/min; Estimated Glomerular Filt Rate 50; Glucose 227 mg/dL (65-110); Potassium 3.7 mmol/L (3.4-5.0); Sodium 131 mmol/L (137-145)
[2025-02-26 08:14] LABS: Glucose Point of Care 180 mg/dl (65-105)
[2025-02-26] MEDS: GABAPENTIN 100 MG CAPSULE PO ×3 (08:39→17:29)
[2025-02-26] MEDS: FERROUS SULFATE 325 MG TABLET DR PO ×2 (08:39→17:29)
[2025-02-26] MEDS: ATORVASTATIN 20 MG TABLET PO (08:39)
[2025-02-26 12:01] LABS: Glucose Point of Care 218 mg/dl (65-105)
--- NOTE | 2025-02-26 12:10 | P.PNIM_ITS ---
Progress Note: A&P Assessment and Plan (1) Diabetes: Code(s): E11.9 - Type 2 diabetes mellitus without complications Status: Acute Assessment and Plan: patient reported he was previously diagnosed with diabetes type 2 insulin controlled previously on 30 units Lantus as well as sliding scale however 1 year ago patient lost his insurance and it has a follow-up with the primary care physician or taken his insulin since * Accu-Cheks a.c. HS * sliding scale insulin * Started on 27 untis Lantus HS * A1C 11 * lipid panel * Diabetic diet * consult to tobacco prevention health educator * encourage lifestyle modifications and weight loss * continue atorvastatin * Watch for hypoglycemia/hypoglycemic protocol ordered * patient is going to need a glucometer, strips and pen needles the discharge as well as orders for long-acting and short-acting insulin (2) Leg weakness, bilateral: Code(s): R29.898 - Other symptoms and signs involving the musculoskeletal system Status: Chronic Assessment and Plan: lower leg weakness and pain likely secondary to uncontrolled diabetes with peripheral vascular disease as well as weakness contributing to anemia * resumed insulin * CT head negative for acute abnormality * started low-dose gabapentin will see if this improves patient bilateral lower extremity pain * neurology was consulted * MRI had been ordered patient refused * (3) Microcytic anemia: Code(s): D50.9 - Iron deficiency anemia, unspecified Status: Acute Assessment and Plan: patient with microcytic iron deficiency anemia * started patient on ferrous sulfate p.o. b.i.d. (4) Hypertension: Code(s): I10 - Essential (primary) hypertension Status: Acute Assessment and Plan: patient was hypertensive upon admission hold losartan with Humberto * monitor BP per unit protocol * (5) HUMBERTO (acute kidney injury): Code(s): N17.9 - Acute kidney failure, unspecified Status: Acute Assessment and Plan: hold losartan Will get renal ultrasound Plan Code status: Full code per patient DVT prophylaxis: SCD Stress ulcer prophylaxis: Protonix 40 daily PT/OT notes: pending Disposition: patient was admitted to the medical unit for further evaluation treatment of generalized weakness and bilateral lower extremity weakness wand L shoulder pain. will follow CT L shoulder. PT/ OT ordered Subjective Date/time seen: 02/26/25 12:10 Interval history: per HPI: Patient is a 55-year-old male 6 who presented to the emergency department with worsening bilateral lower extremity pain and weakness for the last week as well as just generalized weakness. Patient also endorses sinus congestion and shortness of breath. patient denied any chest pain, dizziness, nausea, vomiting, abdominal pain however did endorse increased thirst and urination. at 1st patient denied any past medical history however after further investigation patient stated he had a history of diabetes insulin controlled but had to stop taking his insulin 1 year ago after he lost his insurance and was unable to afford it reports he has not followed up with her primary care physician since. CXR showed no acute cardiopulmonary process and CTA of head and neck with no acute intracranial carotid stenosis 4% 6%. Labs were significant for microcytic anemia with a hemoglobin 9.6, and hyperglycemia with blood sugars close to 300. Patient was admitted for evaluation and treatment of generalized weakness and BLE weakness. ED did consult neurology for any neurological evaluation and ordered a MRI which patient refused. 02/25/25 Patient was seen and examined at bedside. Mainly complaining of left shoulder pain. Short of the breath better. Denies any chest pain, abdominal pain, nausea vomiting. WBC 6.7, hemoglobin 9.1, sodium 133, creatinine 1.36. Patient refused MRI. CT shoulder negative for acute abnormalities. We will order PT OT' 02/26/25 Patient was seen and examined at bedside. Is feeling better. Left shoulder is better. PT recommended rehab. Will add lidocaine patch Discharge pending placement. Review of Systems Review of Systems: All systems reviewed & are unremarkable except as noted in HPI and below Exam Const: General: comfortable and no acute distress Other: Pleasant male obese and appears older then stated age HENMT: Mouth: Yes moist mucous membranes Eyes: General: appearance normal, both eyes and all related structures Pupils: Equal, round and reactive pupils present Neck: Neck: supple and no JVD Resp: Effort & Inspection: normal respiratory effort Auscultation: clear to auscultation bilaterally Cardio: Rate: tachycardic Rhythm: regular rhythm GI: Auscultation: normal bowel sounds Other: Obese Neuro: General: gait normal Cranial nerves: Yes Equal, round and reactive pupils present Speech: normal speech Motor exam (neuro): Abnormal motor strength present (BLE) Sensory Exam: normal sensation Extrem: General: normal to inspection Other: Decreased ROM of left upper extremity Psych: Mental Status: mental status grossly normal Affect: normal affect Objective Data Vital Signs Vital Signs: Vital Signs - 24 hr 02/25/25 14:00 02/25/25 16:00 02/25/25 19:34 Temperature 97.6 F 98.1 F Pulse Rate 82 90 97 Respiratory Rate 18 18 Blood Pressure 128/68 127/75 Pulse Oximetry 99 99 Oxygen Delivery 02/25/25 20:00 02/25/25 20:00 02/26/25 00:00 Temperature Pulse Rate 100 88 Respiratory Rate Blood Pressure Pulse Oximetry Oxygen Delivery Room Air 02/26/25 04:00 02/26/25 04:30 02/26/25 08:00 Temperature 97.8 F Pulse Rate 103 H 98 115 H Respiratory Rate 16 Blood Pressure 126/69 Pulse Oximetry 98 Oxygen Delivery 02/26/25 08:40 02/26/25 08:57 Temperature Pulse Rate Respiratory Rate Blood Pressure Pulse Oximetry Oxygen Delivery Room Air Room Air Intake/Output Intake/Output: Intake & Output 02/23/25 02/24/25 02/25/25 02/26/25 23:59 23:59 23:59 23:59 Intake Total 1412 1484 390 Output Total 1600 1100 200 Balance -188 384 190 Meds/Results Medications: Active Medications Generic Name Dose Route Start Last Admin Trade Name Freq PRN Reason Stop Dose Admin Acetaminophen 650 mg 02/23/25 19:01 Acetaminophen 325 Mg Tablet PO Q4H PRN Mild Pain (1-3) or Fever Hydrocodone Bitart/Acetaminophen 1 tab 02/23/25 19:01 02/26/25 08:40 Hydrocodone/Acetaminophen (*Crx) 5-325 Mg Tablet PO 1 tab Q4H PRN Administration Pain Rated 4-6 Alprazolam 0.25 mg 02/25/25 11:27 02/26/25 08:40 Alprazolam (*Crx) 0.25 Mg Tablet PO 0.25 mg TID PRN Administration Anxiety Atorvastatin Calcium 20 mg 02/25/25 09:00 02/26/25 08:39 Atorvastatin 20 Mg Tablet PO 20 mg DAILY SHIRA Administration Dextrose 12.5 gm 02/24/25 08:09 Dextrose 50% 25 Gm/50 Ml Syringe IV PUSH PRN PRN Hypoglycemia Protocol Ferrous Sulfate 325 mg 02/24/25 17:00 02/26/25 08:39 Ferrous Sulfate [address] PO 325 mg BID SHIRA Administration Gabapentin 100 mg 02/24/25 14:00 02/26/25 08:39 Gabapentin 100 Mg Capsule PO 100 mg TID SHIRA Administration Glucagon 1 mg 02/24/25 08:09 Glucagon For Inj 1 Mg Vial IM PRN PRN Hypoglycemia Protocol Glucose 15 gm 02/24/25 08:09 Glucose Oral Gel 15 Gm Of Glucse In 37.5 Gm Tube PO PRN PRN Hypoglycemia Protocol Dextrose 1,000 mls @ 100 mls/hr 02/24/25 08:09 Dextrose 5% 1,000 Ml IVPB PRN PRN Hypoglycemia Protocol Insulin Aspart 2 - 5 units 02/24/25 08:00 02/26/25 08:33 Insulin Aspart (*Bkc) 100 Units/Ml SUB-Q Not Given [facility] Protocol Insulin Glargine 27 units 02/24/25 21:00 02/25/25 20:00 Insulin Glargine (*Bkc) 100 Units/Ml 0.2 units/kg (27 units) 27 units SUB-Q Administration HS SHIRA Losartan Potassium 25 mg 02/24/25 13:45 02/24/25 14:44 Losartan Potassium 25 Mg Tablet PO 25 mg DAILY SHIRA Administration Miscellaneous Information 1 each 02/25/25 00:01 Xanax 0.25mg And 0.5 Mg Have Duplicate Prn Indications. Please Clarify When To Use Which ( XX 03/27/25 00:00 CLARIFY SHIRA Ondansetron HCl 4 mg 02/23/25 19:01 Ondansetron Inj 4 Mg/2 Ml Vial IV PUSH Q4H PRN Nausea Radiology Results: ITS Impressions Chest X-Ray 02/23/25 14:29 IMPRESSION: 1. No acute cardiopulmonary disease. Head/Neck CTA 02/23/25 17:36 IMPRESSION: 1. Mild atherosclerotic disease detected bilaterally. Percent stenosis per NASCET criteria is 6% on the right (calcified) and 9% on the left (soft appearing). 2. No acute intracranial hemorrhage or suspicious mass effect. Shoulder CT 02/25/25 15:24 IMPRESSION: 1. Moderate left glenohumeral osteoarthritis with high-grade chondromalacia along the superior to posterior glenoid. 2. Left supraspinatus and infraspinatus calcific tendinitis. Labs Labs: Laboratory Results - last 24 hr 02/25/25 02/25/25 02/26/25 16:57 19:37 04:42 WBC 6.8 RBC 3.59 L Hgb 9.0 L Hct 28.5 L MCV 79.4 L MCH 25.1 L MCHC 31.6 L RDW 14.1 Plt Count 387 H MPV 9.4 Immature Gran % (Auto) 0.4 Neut % (Auto) 62.4 Lymph % (Auto) 26.0 [place] % (Auto) 9.3 H Eos % (Auto) 1.2 Baso % (Auto) 0.7 Lymph # (Auto) 1.77 [place] # (Auto) 0.6 Eos # (Auto) 0.1 Baso # (Auto) 0.1 Abs Immat Gran (auto) 0.03 Absolute Neuts (auto) 4.3 Absolute Nucleated RBC 0.000 Nucleated RBC % 0.0 Sodium 131 L Potassium 3.7 Chloride 98 Carbon Dioxide 24 Anion Gap 9 BUN 23 H Creatinine 1.45 H Estim Creat Clear Calc 74 Estimated GFR 50 L Glucose 227 H POC Capillary Glucose 228 H 214 H Calcium 9.0 Total Bilirubin 0.4 AST 25 ALT 22 Alkaline Phosphatase 140 H Total Protein 7.0 Albumin 3.1 L 02/26/25 02/26/25 08:09 11:58 WBC RBC Hgb Hct MCV MCH MCHC RDW Plt Count MPV Immature Gran % (Auto) Neut % (Auto) Lymph % (Auto) [place] % (Auto) Eos % (Auto) Baso % (Auto) Lymph # (Auto) [place] # (Auto) Eos # (Auto) Baso # (Auto) Abs Immat Gran (auto) Absolute Neuts (auto) Absolute Nucleated RBC Nucleated RBC % Sodium Potassium Chloride Carbon Dioxide Anion Gap BUN Creatinine Estim Creat Clear Calc Estimated GFR Glucose POC Capillary Glucose 180 H 218 H Calcium Total Bilirubin AST ALT Alkaline Phosphatase Total Protein Albumin Quality VTE Prophylaxis VTE prophylaxis: mechanical ordered
[2025-02-26] MEDS: INSULIN ASPART (*BKC) 100 UNITS/ML SUB-Q (12:55)
--- NOTE | 2025-02-26 13:42 | WPDNEUROPN ---
Progress Note: A&P Assessment and Plan (1) Diabetic polyneuropathy: Code(s): E11.42 - Type 2 diabetes mellitus with diabetic polyneuropathy Status: Acute Plan patient has not been able to afford medications for last 1 year and he is insulin dependent. He is currently being treated with her insulin. His creatinine was 1.45 and hemoglobin A1c was 11.1. Hemoglobin was 9.0 and serum iron low at 27. He requires complete continue supportive care. Hurt someone as an outpatient EMG nerve can study of the lower limbs could be you helpful to elucidate the degree of peripheral neuropathy or any other additional findings. For now I do not see any evidence for diabetic amyotrophy Subjective Date/time seen: 02/26/25 13:42 Interval history: The patient is 55 years old with history of diabetes mellitus presented to the hospital with weakness of the legs. He is now able to move both upper lower limbs but he generally feels weak and shaky. His hemoglobin A1c was 11.1 and creatinine was 1.45 and hemoglobin of 9.0. Serum iron was low at 27. Review of Systems Review of Systems: All systems reviewed & are unremarkable except as noted in HPI and below Exam Narrative: fully conscious alert, appears anxious. No aphasia or dysarthria. Cranial nerves annual testing did not show any focal deficit. Motor system appears to mild weakness nurse of flexion of the toes other than that normal strength in both upper lower limbs. Deep tendon reflexes were decreased at knees and ankles. He seems to shaky however no cogwheeling or any other involuntary movements are seen Objective Data Vital Signs Vital Signs: Vital Signs - 24 hr 02/25/25 14:00 02/25/25 16:00 02/25/25 19:34 Temperature 97.6 F 98.1 F Pulse Rate 82 90 97 Respiratory Rate 18 18 Blood Pressure 128/68 127/75 Pulse Oximetry 99 99 Oxygen Delivery 02/25/25 20:00 02/25/25 20:00 02/26/25 00:00 Temperature Pulse Rate 100 88 Respiratory Rate Blood Pressure Pulse Oximetry Oxygen Delivery Room Air 02/26/25 04:00 02/26/25 04:30 02/26/25 08:00 Temperature 97.8 F Pulse Rate 103 H 98 115 H Respiratory Rate 16 Blood Pressure 126/69 Pulse Oximetry 98 Oxygen Delivery 02/26/25 08:40 02/26/25 08:57 02/26/25 11:35 Temperature Pulse Rate Respiratory Rate Blood Pressure Pulse Oximetry Oxygen Delivery Room Air Room Air Room Air Intake/Output Intake/Output: Intake & Output 02/23/25 02/24/25 02/25/25 02/26/25 23:59 23:59 23:59 23:59 Intake Total 1412 1484 870 Output Total 1600 1100 200 Balance -188 384 670 Meds/Results Medications: Active Medications Generic Name Dose Route Start Last Admin Trade Name Freq PRN Reason Stop Dose Admin Acetaminophen 650 mg 02/23/25 19:01 Acetaminophen 325 Mg Tablet PO Q4H PRN Mild Pain (1-3) or Fever Hydrocodone Bitart/Acetaminophen 1 tab 02/23/25 19:01 02/26/25 08:40 Hydrocodone/Acetaminophen (*Crx) 5-325 Mg Tablet PO 1 tab Q4H PRN Administration Pain Rated 4-6 Alprazolam 0.25 mg 02/25/25 11:27 02/26/25 12:57 Alprazolam (*Crx) 0.25 Mg Tablet PO 0.25 mg TID PRN Administration Anxiety Atorvastatin Calcium 20 mg 02/25/25 09:00 02/26/25 08:39 Atorvastatin 20 Mg Tablet PO 20 mg DAILY SHIRA Administration Dextrose 12.5 gm 02/24/25 08:09 Dextrose 50% 25 Gm/50 Ml Syringe IV PUSH PRN PRN Hypoglycemia Protocol Ferrous Sulfate 325 mg 02/24/25 17:00 02/26/25 08:39 Ferrous Sulfate [address] PO 325 mg BID SHIRA Administration Gabapentin 100 mg 02/24/25 14:00 02/26/25 12:55 Gabapentin 100 Mg Capsule PO 100 mg TID SHIRA Administration Glucagon 1 mg 02/24/25 08:09 Glucagon For Inj 1 Mg Vial IM PRN PRN Hypoglycemia Protocol Glucose 15 gm 02/24/25 08:09 Glucose Oral Gel 15 Gm Of Glucse In 37.5 Gm Tube PO PRN PRN Hypoglycemia Protocol Dextrose 1,000 mls @ 100 mls/hr 02/24/25 08:09 Dextrose 5% 1,000 Ml IVPB PRN PRN Hypoglycemia Protocol Insulin Aspart 2 - 5 units 02/24/25 08:00 02/26/25 12:55 Insulin Aspart (*Bkc) 100 Units/Ml SUB-Q 2 units TIDWM SHIRA Administration Protocol Insulin Glargine 27 units 02/24/25 21:00 02/25/25 20:00 Insulin Glargine (*Bkc) 100 Units/Ml 0.2 units/kg (27 units) 27 units SUB-Q Administration HS SHIRA Losartan Potassium 25 mg 02/24/25 13:45 02/24/25 14:44 Losartan Potassium 25 Mg Tablet PO 25 mg DAILY SHIRA Administration Miscellaneous Information 1 each 02/25/25 00:01 Xanax 0.25mg And 0.5 Mg Have Duplicate Prn Indications. Please Clarify When To Use Which ( XX 03/27/25 00:00 CLARIFY SHIRA Ondansetron HCl 4 mg 02/23/25 19:01 Ondansetron Inj 4 Mg/2 Ml Vial IV PUSH Q4H PRN Nausea Radiology Results: ITS Impressions Chest X-Ray 02/23/25 14:29 IMPRESSION: 1. No acute cardiopulmonary disease. Head/Neck CTA 02/23/25 17:36 IMPRESSION: 1. Mild atherosclerotic disease detected bilaterally. Percent stenosis per NASCET criteria is 6% on the right (calcified) and 9% on the left (soft appearing). 2. No acute intracranial hemorrhage or suspicious mass effect. Shoulder CT 02/25/25 15:24 IMPRESSION: 1. Moderate left glenohumeral osteoarthritis with high-grade chondromalacia along the superior to posterior glenoid. 2. Left supraspinatus and infraspinatus calcific tendinitis. Labs Labs: Laboratory Results - last 24 hr 02/25/25 02/25/25 02/26/25 16:57 19:37 04:42 WBC 6.8 RBC 3.59 L Hgb 9.0 L Hct 28.5 L MCV 79.4 L MCH 25.1 L MCHC 31.6 L RDW 14.1 Plt Count 387 H MPV 9.4 Immature Gran % (Auto) 0.4 Neut % (Auto) 62.4 Lymph % (Auto) 26.0 [place] % (Auto) 9.3 H Eos % (Auto) 1.2 Baso % (Auto) 0.7 Lymph # (Auto) 1.77 [place] # (Auto) 0.6 Eos # (Auto) 0.1 Baso # (Auto) 0.1 Abs Immat Gran (auto) 0.03 Absolute Neuts (auto) 4.3 Absolute Nucleated RBC 0.000 Nucleated RBC % 0.0 Sodium 131 L Potassium 3.7 Chloride 98 Carbon Dioxide 24 Anion Gap 9 BUN 23 H Creatinine 1.45 H Estim Creat Clear Calc 74 Estimated GFR 50 L Glucose 227 H POC Capillary Glucose 228 H 214 H Calcium 9.0 Total Bilirubin 0.4 AST 25 ALT 22 Alkaline Phosphatase 140 H Total Protein 7.0 Albumin 3.1 L 02/26/25 02/26/25 08:09 11:58 WBC RBC Hgb Hct MCV MCH MCHC RDW Plt Count MPV Immature Gran % (Auto) Neut % (Auto) Lymph % (Auto) [place] % (Auto) Eos % (Auto) Baso % (Auto) Lymph # (Auto) [place] # (Auto) Eos # (Auto) Baso # (Auto) Abs Immat Gran (auto) Absolute Neuts (auto) Absolute Nucleated RBC Nucleated RBC % Sodium Potassium Chloride Carbon Dioxide Anion Gap BUN Creatinine Estim Creat Clear Calc Estimated GFR Glucose POC Capillary Glucose 180 H 218 H Calcium Total Bilirubin AST ALT Alkaline Phosphatase Total Protein Albumin
[2025-02-26 17:03] LABS: Glucose Point of Care 192 mg/dl (65-105)
[2025-02-26] MEDS: INSULIN GLARGINE (*BKC) 100 UNITS/ML 27 UNITS SUB-Q (20:31)
[2025-02-26 20:36] LABS: Glucose Point of Care 190 mg/dl (65-105)
[2025-02-26 21:50] LABS: Glucose Point of Care 212 mg/dl (65-105)
[2025-02-27] VITALS (9 sets, daily range): BP systolic 153–176; BP diastolic 81–83; PULSE 95–112; RESP 18–20; TEMP 36.6–37; O2SAT 98–100; BMI 37.9
[2025-02-27] MEDS: HYDROcodone/acetaminophen (*CRX) 5-325 MG TABLET 1 TAB PO ×6 (00:45→21:39)
[2025-02-27 05:41] LABS: Basophils Absolute Auto 0.1 K/mm3 (0.0-0.1); Basophils Percent Auto 0.9 % (0.2-1.2); Eosinophils Absolute Auto 0.1 K/mm3 (0-0.3); Eosinophils Percent Auto 1.7 % (0-4.4); Hematocrit 30.3 % (42.0-52.0); Hemoglobin 9.2 g/dL (14.0-18.0); Immature Granulocyte Absolute 0.03 K/mm3 (0.00-0.031); Immature Granulocyte Percent A 0.5 % (0-0.5); Mean Corpuscular HGB Conc 30.4 g/dl (32-36); Mean Corpuscular Hemoglobin 24.9 pg (26-34); Mean Corpuscular Volume 81.9 fl (80-100); Mean Platelet Volume 9.4 fl (7.4-10.4); Monocytes Absolute Auto 0.7 K/mm3 (0.1-0.6); Neutrophils Absolute Auto 3.7 K/mm3 (1.3-6.7); Neutrophils Percent Auto 55.9 % (45.5-73.1); Platelet Count Result 355 k/mm3 (150-375); Red Cell Distribution Width 14.1 % (11.5-14.5); White Blood Count 6.7 K/mm3 (4.5-10.0)
[2025-02-27 06:01] LABS: Alanine Aminotransferase 25 U/L (6-50); Albumin Level 3.2 g/dL (3.5-5.1); Alkaline Phosphatase 164 U/L (38-126); Anion Gap 6 mmol/L (4-12); Aspartate Amino Transferase 26 U/L (17-59); Bilirubin,Total 0.3 mg/dL (0.2-1.3); Blood Urea Nitrogen 22 mg/dL (9-20); Calcium 8.8 mg/dL (8.4-10.2); Carbon Dioxide 28 mmol/L (22-30); Chloride 99 mmol/L (98-107); Estimated CRCL calculation 78 ml/min; Estimated Glomerular Filt Rate 53; Glucose 234 mg/dL (65-110); Potassium 4.2 mmol/L (3.4-5.0); Sodium 133 mmol/L (137-145)
[2025-02-27 08:07] LABS: Glucose Point of Care 181 mg/dl (65-105)
[2025-02-27] MEDS: ATORVASTATIN 20 MG TABLET PO (08:21)
[2025-02-27] MEDS: FERROUS SULFATE 325 MG TABLET DR PO ×2 (08:21→16:44)
[2025-02-27] MEDS: GABAPENTIN 100 MG CAPSULE PO ×3 (08:21→16:44)
[2025-02-27] MEDS: ALPRAZolam (*CRX) 0.25 MG TABLET PO (10:04)
--- NOTE | 2025-02-27 11:52 | P.PNIM_ITS ---
Progress Note: A&P Assessment and Plan (1) Diabetes: Code(s): E11.9 - Type 2 diabetes mellitus without complications Status: Acute Assessment and Plan: patient reported he was previously diagnosed with diabetes type 2 insulin controlled previously on 30 units Lantus as well as sliding scale however 1 year ago patient lost his insurance and it has a follow-up with the primary care physician or taken his insulin since * Accu-Cheks a.c. HS * sliding scale insulin * on 27 untis Lantus HS * A1C 11 * lipid panel * Diabetic diet * consult to telehealth nurse educator * encourage lifestyle modifications and weight loss * continue atorvastatin * Watch for hypoglycemia/hypoglycemic protocol ordered * patient is going to need a glucometer, strips and pen needles the discharge as well as orders for long-acting and short-acting insulin (2) Leg weakness, bilateral: Code(s): R29.898 - Other symptoms and signs involving the musculoskeletal system Status: Chronic Assessment and Plan: lower leg weakness and pain likely secondary to uncontrolled diabetes with peripheral vascular disease as well as weakness contributing to anemia * resumed insulin * CT head negative for acute abnormality * started low-dose gabapentin EMG/NCV outpatient * MRI had been ordered patient refused * (3) Microcytic anemia: Code(s): D50.9 - Iron deficiency anemia, unspecified Status: Acute Assessment and Plan: patient with microcytic iron deficiency anemia * started patient on ferrous sulfate p.o. b.i.d. (4) Hypertension: Code(s): I10 - Essential (primary) hypertension Status: Acute Assessment and Plan: patient was hypertensive upon admission hold losartan with Humberto * monitor BP per unit protocol * (5) HUMBERTO (acute kidney injury): Code(s): N17.9 - Acute kidney failure, unspecified Status: Acute Assessment and Plan: hold losartan (6) Renal cell carcinoma: Code(s): C64.9 - Malignant neoplasm of unspecified kidney, except renal pelvis Status: Acute Assessment and Plan: Found on CT and ultrasound Urology and oncology consult Continue to monitor Plan Code status: Full code per patient DVT prophylaxis: SCD Stress ulcer prophylaxis: Protonix 40 daily PT/OT notes: pending Disposition: patient was admitted to the medical unit for further evaluation treatment of generalized weakness and bilateral lower extremity weakness wand L shoulder pain. will follow CT L shoulder. PT/ OT ordered Subjective Date/time seen: 02/27/25 11:52 Interval history: per HPI: Patient is a 55-year-old male 6 who presented to the emergency department with worsening bilateral lower extremity pain and weakness for the last week as well as just generalized weakness. Patient also endorses sinus congestion and shortness of breath. patient denied any chest pain, dizziness, nausea, vomiting, abdominal pain however did endorse increased thirst and urination. at 1st patient denied any past medical history however after further investigation patient stated he had a history of diabetes insulin controlled but had to stop taking his insulin 1 year ago after he lost his insurance and was unable to afford it reports he has not followed up with her primary care physician since. CXR showed no acute cardiopulmonary process and CTA of head and neck with no acute intracranial carotid stenosis 4% 6%. Labs were significant for microcytic anemia with a hemoglobin 9.6, and hyperglycemia with blood sugars close to 300. Patient was admitted for evaluation and treatment of generalized weakness and BLE weakness. ED did consult neurology for any neurological evaluation and ordered a MRI which patient refused. 02/25/25 Patient was seen and examined at bedside. Mainly complaining of left shoulder pain. Short of the breath better. Denies any chest pain, abdominal pain, nausea vomiting. WBC 6.7, hemoglobin 9.1, sodium 133, creatinine 1.36. Patient refused MRI. CT shoulder negative for acute abnormalities. We will order PT OT' 02/26/25 Patient was seen and examined at bedside. Is feeling better. Left shoulder is better. PT recommended rehab. Will add lidocaine patch 02/27/25 Patient was seen and examined at bedside. complaining of left shoulder pain. Ultrasound and CT concerning for RCC. Urology and oncology consult ordered Review of Systems Review of Systems: All systems reviewed & are unremarkable except as noted in HPI and below Exam Const: General: comfortable and no acute distress Other: Pleasant male obese and appears older then stated age HENMT: Mouth: Yes moist mucous membranes Eyes: General: appearance normal, both eyes and all related structures Pupils: Equal, round and reactive pupils present Neck: Neck: supple and no JVD Resp: Effort & Inspection: normal respiratory effort Auscultation: clear to auscultation bilaterally Cardio: Rate: tachycardic Rhythm: regular rhythm GI: Auscultation: normal bowel sounds Other: Obese Neuro: General: gait normal Cranial nerves: Yes Equal, round and reactive pupils present Speech: normal speech Motor exam (neuro): Abnormal motor strength present (BLE) Sensory Exam: normal sensation Extrem: General: normal to inspection Other: Decreased ROM of left upper extremity Psych: Mental Status: mental status grossly normal Affect: normal affect Objective Data Vital Signs Vital Signs: Vital Signs - 24 hr 02/26/25 12:00 02/26/25 14:00 02/26/25 14:43 Temperature 97.6 F Pulse Rate 106 H 93 Respiratory Rate 16 Blood Pressure 151/86 H Pulse Oximetry 97 94 Oxygen Delivery Room Air 02/26/25 16:00 02/26/25 20:00 02/26/25 20:00 Temperature Pulse Rate 102 H 102 H Respiratory Rate Blood Pressure Pulse Oximetry Oxygen Delivery Room Air 02/26/25 21:31 02/27/25 00:00 02/27/25 04:00 Temperature 98.0 F Pulse Rate 107 H 98 96 Respiratory Rate 16 Blood Pressure 129/79 Pulse Oximetry 100 Oxygen Delivery 02/27/25 05:40 02/27/25 08:00 Temperature 97.9 F Pulse Rate 100 96 Respiratory Rate 20 Blood Pressure 159/81 H Pulse Oximetry 100 Oxygen Delivery Intake/Output Intake/Output: Intake & Output 04/12/2002/25/25 02/26/25 02/27/25 23:59 23:59 23:59 23:59 Intake Total 1412 1484 1110 740 Output Total 1600 1100 1450 1525 Balance -188 234 -434 -156 Meds/Results Medications: Active Medications Generic Name Dose Route Start Last Admin Trade Name Freq PRN Reason Stop Dose Admin Acetaminophen 650 mg 02/23/25 19:01 Acetaminophen 325 Mg Tablet PO Q4H PRN Mild Pain (1-3) or Fever Hydrocodone Bitart/Acetaminophen 1 tab 02/23/25 19:01 02/27/25 09:22 Hydrocodone/Acetaminophen (*Crx) 5-325 Mg Tablet PO 1 tab Q4H PRN Administration Pain Rated 4-6 Alprazolam 0.25 mg 02/25/25 11:27 02/27/25 10:04 Alprazolam (*Crx) 0.25 Mg Tablet PO 0.25 mg TID PRN Administration Anxiety Atorvastatin Calcium 20 mg 02/25/25 09:00 02/27/25 08:21 Atorvastatin 20 Mg Tablet PO 20 mg DAILY SHIRA Administration Dextrose 12.5 gm 02/24/25 08:09 Dextrose 50% 25 Gm/50 Ml Syringe IV PUSH PRN PRN Hypoglycemia Protocol Ferrous Sulfate 325 mg 02/24/25 17:00 02/27/25 08:21 Ferrous Sulfate [address] PO 325 mg BID SHIRA Administration Gabapentin 100 mg 02/24/25 14:00 02/27/25 08:21 Gabapentin 100 Mg Capsule PO 100 mg TID SHIRA Administration Glucagon 1 mg 02/24/25 08:09 Glucagon For Inj 1 Mg Vial IM PRN PRN Hypoglycemia Protocol Glucose 15 gm 02/24/25 08:09 Glucose Oral Gel 15 Gm Of Glucse In 37.5 Gm Tube PO PRN PRN Hypoglycemia Protocol Dextrose 1,000 mls @ 100 mls/hr 02/24/25 08:09 Dextrose 5% 1,000 Ml IVPB PRN PRN Hypoglycemia Protocol Insulin Aspart 2 - 5 units 02/24/25 08:00 02/27/25 08:21 Insulin Aspart (*Bkc) 100 Units/Ml SUB-Q Not Given TIDWM SHIRA Protocol Insulin Glargine 27 units 02/24/25 21:00 02/26/25 20:31 Insulin Glargine (*Bkc) 100 Units/Ml 0.2 units/kg (27 units) 27 units SUB-Q Administration HS SHIRA Losartan Potassium 25 mg 02/24/25 13:45 02/24/25 14:44 Losartan Potassium 25 Mg Tablet PO 25 mg DAILY SHIRA Administration Miscellaneous Information 1 each 02/25/25 00:01 Xanax 0.25mg And 0.5 Mg Have Duplicate Prn Indications. Please Clarify When To Use Which ( XX 03/27/25 00:00 CLARIFY SHIRA Ondansetron HCl 4 mg 02/23/25 19:01 Ondansetron Inj 4 Mg/2 Ml Vial IV PUSH Q4H PRN Nausea Radiology Results: ITS Impressions Chest X-Ray 02/23/25 14:29 IMPRESSION: 1. No acute cardiopulmonary disease. Head/Neck CTA 02/23/25 17:36 IMPRESSION: 1. Mild atherosclerotic disease detected bilaterally. Percent stenosis per NASCET criteria is 6% on the right (calcified) and 9% on the left (soft appearing). 2. No acute intracranial hemorrhage or suspicious mass effect. Shoulder CT 02/25/25 15:24 IMPRESSION: 1. Moderate left glenohumeral osteoarthritis with high-grade chondromalacia along the superior to posterior glenoid. 2. Left supraspinatus and infraspinatus calcific tendinitis. Renal Ultrasound 02/26/25 14:11 IMPRESSION: 1. 8.8 cm exophytic mass which appears to arise from the lower pole the right kidney which is concerning for renal cell carcinoma. Recommend pre and postcontrast MRI or CT for further evaluation. Abdomen/Pelvis CT 02/27/25 11:31 Impression: Large right renal mass, as detailed above, compatible with renal cell carcinoma. surgical/oncologic consultation required. Labs Labs: Laboratory Results - last 24 hr 02/26/25 02/26/25 02/26/25 11:58 16:53 20:29 WBC RBC Hgb Hct MCV MCH MCHC RDW Plt Count MPV Immature Gran % (Auto) Neut % (Auto) Lymph % (Auto) Warren % (Auto) Eos % (Auto) Baso % (Auto) Lymph # (Auto) Warren # (Auto) Eos # (Auto) Baso # (Auto) Abs Immat Gran (auto) Absolute Neuts (auto) Absolute Nucleated RBC Nucleated RBC % Sodium Potassium Chloride Carbon Dioxide Anion Gap BUN Creatinine Estim Creat Clear Calc Estimated GFR Glucose POC Capillary Glucose 218 H 192 H 190 H Calcium Total Bilirubin AST ALT Alkaline Phosphatase Total Protein Albumin 02/26/25 02/27/25 02/27/25 21:33 05:20 07:59 WBC 6.7 RBC 3.70 L Hgb 9.2 L Hct 30.3 L MCV 81.9 MCH 24.9 L MCHC 30.4 L RDW 14.1 Plt Count 355 MPV 9.4 Immature Gran % (Auto) 0.5 Neut % (Auto) 55.9 Lymph % (Auto) 30.0 Warren % (Auto) 11.0 H Eos % (Auto) 1.7 Baso % (Auto) 0.9 Lymph # (Auto) 2.00 Warren # (Auto) 0.7 H Eos # (Auto) 0.1 Baso # (Auto) 0.1 Abs Immat Gran (auto) 0.03 Absolute Neuts (auto) 3.7 Absolute Nucleated RBC 0.000 Nucleated RBC % 0.0 Sodium 133 L Potassium 4.2 Chloride 99 Carbon Dioxide 28 Anion Gap 6 BUN 22 H Creatinine 1.38 H Estim Creat Clear Calc 78 Estimated GFR 53 L Glucose 234 H POC Capillary Glucose 212 H 181 H Calcium 8.8 Total Bilirubin 0.3 AST 26 ALT 25 Alkaline Phosphatase 164 H Total Protein 7.0 Albumin 3.2 L Quality VTE Prophylaxis VTE prophylaxis: mechanical ordered
[2025-02-27 12:07] LABS: Glucose Point of Care 194 mg/dl (65-105)
--- NOTE | 2025-02-27 14:06 | PCPTNOTE ---
Patient refused treatment this session due to 8/10 chest and back pain. RN aware.
--- NOTE | 2025-02-27 14:49 | WPDURCON ---
Assessment and Plan Assessment and plan (1) Renal mass, right: Code(s): N28.89 - Other specified disorders of kidney and ureter Status: Acute Assessment and Plan: 02/26/25 JUAN ANTONIO showed 8.8cm exophytic right renal mass. 02/27/25 CT AP WWO contrast : 9.9 x 8.2 x 7.6cm right renal mass concerning for renal cell carcinoma. No previous abdominal imaging available for review in [facility], [facility] or [facility] to determine chronicity (2) ARSALAN (acute kidney injury): Code(s): N17.9 - Acute kidney failure, unspecified Status: Acute Assessment and Plan: - Mild, Cr 1.4 Plan - Plan for outpatient management of right renal mass given he is entirely asymptomatic - We discussed possible need for biopsy vs. partial nephrectomy vs. nephrectomy vs. observation pending surgical input - No plan for inpatient urologic surgical intervention Urology Consult Note HPI Date Seen: 02/27/25 Requesting Physician: Ron Mcgarry MD Primary Care Provider: RESIDENCE LIFE COORDINATOR PHYSICIAN Consult Narrative Narrative: Fuad Claudio is a 55 year old male with a medical history significant for uncontrolled diabetes, HTN, obesity who was admitted 02/23/25 for evaluation of shoulder pain and lower extremity weakness. He developed mild renal insufficiency through his hospital course (Cr 1.4 from 1.1). 02/26/25 JUAN ANTONIO showed 8.8cm exophytic right renal mass. Follow-up CT AP WWO contrast today significant for 9.9 x 8.2 x 7.6cm right renal mass concerning for renal cell carcinoma. Urology consulted for further evaluation. He is unknown to our practice. Patient denies previous urological history. Former smoker. [facility] BRCA in his mother. He does not have a primary care provider -- I'm not a medicine isha. I don't like going to the doctor. I only go when I'm feeling bad . On exam this afternoon, he c/o shoulder pain, upper back pain, and persistent lower extremity weakness. Denies flank pain, hematuria, dysuria, abdominal pain, nausea, vomiting, fever. Review of Systems Constitutional: Constitutional: Reports lethargy and Reports weakness ENT: Reports Normal hearing present Respiratory: Respiratory: Denies dyspnea Gastrointestinal: Gastrointestinal: Reports as per HPI Genitourinary: Genitourinary: Reports as per HPI Musculoskeletal: Musculoskeletal: Reports as per HPI [facility] Past Medical History Medical History (Updated 02/27/25 @ 14:58 by Bharati Garcia APRN) Diabetic polyneuropathy Diabetes Family History Family History Mother Diabetes mellitus Social History Social History Smoking status: Former smoker Smokeless tobacco user: chewing tobacco Alcohol intake: never Substance use: never Do You Feel Safe in your Home?: Yes Lack of Transportation: No Lack of Food: Never True Current Housing: I Have Housing Concerned About Future Housing: No Difficulty Paying Gas/Electric Bills: No Difficulty Paying for Meds: No Currently Unemployed: No Education: High School Diploma/GED Difficulty w/ Childcare or Family Care: No Spiritual care concerns: No Meds Home Medications and Allergies Home Medications ?Medication ?Instructions ?Recorded ?Confirmed ?Type No Home Medications 02/23/25 02/23/25 History Allergies Allergy/AdvReac Type Severity Reaction Status Date / Time Penicillins Allergy Intermediate Hives Verified 02/23/25 18:41 Vital Signs Vital Signs - 24 hr 02/26/25 16:00 02/26/25 20:00 02/26/25 20:00 Temperature Pulse Rate 102 H 102 H Respiratory Rate Blood Pressure Pulse Oximetry Oxygen Delivery Room Air 02/26/25 21:31 02/27/25 00:00 02/27/25 04:00 Temperature 98.0 F Pulse Rate 107 H 98 96 Respiratory Rate 16 Blood Pressure 129/79 Pulse Oximetry 100 Oxygen Delivery 02/27/25 05:40 02/27/25 08:00 02/27/25 12:00 Temperature 97.9 F Pulse Rate 100 96 95 Respiratory Rate 20 Blood Pressure 159/81 H Pulse Oximetry 100 Oxygen Delivery 02/27/25 14:00 Temperature 98.6 F Pulse Rate 95 Respiratory Rate 18 Blood Pressure 153/82 H Pulse Oximetry 98 Oxygen Delivery Exam Const: General: comfortable and no acute distress HENMT: Face/Nose/Sinus: Normal nares present Eyes: General: appearance normal, both eyes and all related structures Resp: Effort & Inspection: normal respiratory effort : Other: No CVA tenderness Skin: General skin exam: normal color Neuro: Speech: normal speech Psych: Speech and movement: Normal speech and movement present Affect: normal affect Results Labs 02/27/25 05:20 02/27/25 05:20 Labs: Short CBC 02/27/25 Range/Units 05:20 WBC 6.7 (4.5-10.0) K/mm3 Hgb 9.2 L (14.0-18.0) g/dL Hct 30.3 L (42.0-52.0) % Plt Count 355 (150-375) k/mm3 BMP 02/27/25 05:20 Sodium 133 L Potassium 4.2 Chloride 99 Carbon Dioxide 28 BUN 22 H Creatinine 1.38 H Glucose 234 H Calcium 8.8 Liver Function 02/27/25 Range/Units 05:20 Total Bilirubin 0.3 (0.2-1.3) mg/dL AST 26 (17-59) U/L ALT 25 (6-50) U/L Alkaline Phosphatase 164 H (38-126) U/L Albumin 3.2 L (3.5-5.1) g/dL
[2025-02-27 16:58] LABS: Glucose Point of Care 229 mg/dl (65-105)
[2025-02-27] MEDS: INSULIN ASPART (*BKC) 100 UNITS/ML SUB-Q (17:17)
--- NOTE | 2025-02-27 18:03 | WPDONCCN ---
Assessment and Plan Assessment and plan (1) Renal mass, right: Code(s): N28.89 - Other specified disorders of kidney and ureter Status: Acute (2) Microcytic anemia: Code(s): D50.9 - Iron deficiency anemia, unspecified Status: Acute Assessment and Plan: Labs showed iron deficiency anemia with anemia of renal insufficiency. Will start IV iron infusion. He will be discharged home on oral iron replacement. Plan Likely right-sided renal cell carcinoma. Clinical T2 N0 M0 stage II disease. Patient is the 55-year-old obese male with history of smoking quit 20 years ago came into the hospital with upper back pain. He has been dealing with chronic lower back pain for many years. He has lost 10-[address] scan abdomen and pelvis showed 9.9 x 8.2 x 7.6 cm solid mass in the lower pole of the right kidney with 4.5 x 3.4 x 4.5 cm extension of the mass into the interpolar region of the right kidney. There was no lymphadenopathy. Patient has been evaluated by urologist for possible biopsy and nephrectomy. I will order CT chest and bone scan for completion of staging. I have answered all the questions to patient's satisfaction. I have provided my office information for follow-up. HPI Data of Consult Date/Time: 02/27/25 18:03 Requesting Physician: Ron Mcgarry MD Primary Care Provider: SKIRT PANEL ASSEMBLER PHYSICIAN Consult Narrative Narrative: Fuad Claudio is a 55 year old male with history of diabetes and obesity came into the hospital with worsening bilateral lower extremity pain and weakness. He has been having chronic lower back pain but just recently started upper back pain. Shoulder CT scan showed left osteoarthritis. There was left supraspinatus and infraspinatus tendinitis. Renal ultrasound showed 8.8 cm mass arising from the lower pole of the right kidney concerning for renal cell carcinoma. CT abdomen and pelvis showed large renal mass 9.9 x 8.2 x 7.6 cm in the lower pole of the right kidney. There was 4.5 x 3.4 x 4.5 cm extension of the mass into the interpolar region of the right kidney centrally. No lymphadenopathy. Labs showed anemia with hemoglobin of 9.2. He denies any bleeding and bruising. He has lost weight but not sure how much. He denies any previous history of malignancy. There was if family history of breast cancer in the mother. He quit smoking more than 20 years ago. Denies any other complaints. Review of Systems Review of Systems: Review of system as per HPI otherwise negative [facility] Past Medical History Medical History (Updated 02/27/25 @ 14:58 by Bharati Garcia APRN) Diabetic polyneuropathy Diabetes Family History Family History Mother Diabetes mellitus Social History Social History Smoking status: Former smoker Smokeless tobacco user: chewing tobacco Alcohol intake: never Substance use: never Do You Feel Safe in your Home?: Yes Lack of Transportation: No Lack of Food: Never True Current Housing: I Have Housing Concerned About Future Housing: No Difficulty Paying Gas/Electric Bills: No Difficulty Paying for Meds: No Currently Unemployed: No Education: High School Diploma/GED Difficulty w/ Childcare or Family Care: No Spiritual care concerns: No Meds Home Medications and Allergies Home Medications ?Medication ?Instructions ?Recorded ?Confirmed ?Type No Home Medications 02/23/25 02/23/25 History Allergies Allergy/AdvReac Type Severity Reaction Status Date / Time Penicillins Allergy Intermediate Hives Verified 02/23/25 18:41 Vital Signs Vital Signs - 24 hr 02/26/25 20:00 02/26/25 20:00 02/26/25 21:31 Temperature 36.7 C Pulse Rate 102 H 107 H Respiratory Rate 16 Blood Pressure 129/79 Pulse Oximetry 100 Oxygen Delivery Room Air 02/27/25 00:00 02/27/25 04:00 02/27/25 05:40 Temperature 36.6 C Pulse Rate 98 96 100 Respiratory Rate 20 Blood Pressure 159/81 H Pulse Oximetry 100 Oxygen Delivery 02/27/25 08:00 02/27/25 12:00 02/27/25 14:00 Temperature 37.0 C Pulse Rate 96 95 95 Respiratory Rate 18 Blood Pressure 153/82 H Pulse Oximetry 98 Oxygen Delivery 02/27/25 16:00 Temperature Pulse Rate 112 H Respiratory Rate Blood Pressure Pulse Oximetry Oxygen Delivery Exam Narrative: Lungs are clear to auscultation bilaterally Cardiovascular regular rate rhythm no murmurs Abdomen soft nontender nondistended Extremities no edema Results Labs 02/27/25 05:20 02/27/25 05:20 Labs: Short CBC 02/27/25 Range/Units 05:20 WBC 6.7 (4.5-10.0) K/mm3 Hgb 9.2 L (14.0-18.0) g/dL Hct 30.3 L (42.0-52.0) % Plt Count 355 (150-375) k/mm3 BMP 02/27/25 05:20 Sodium 133 L Potassium 4.2 Chloride 99 Carbon Dioxide 28 BUN 22 H Creatinine 1.38 H Glucose 234 H Calcium 8.8 Liver Function 02/27/25 Range/Units 05:20 Total Bilirubin 0.3 (0.2-1.3) mg/dL AST 26 (17-59) U/L ALT 25 (6-50) U/L Alkaline Phosphatase 164 H (38-126) U/L Albumin 3.2 L (3.5-5.1) g/dL
[2025-02-27] MEDS: IRON SUCROSE COMPLEX 400 MG, IRON SUCROSE COMPLEX 100 MG in SODIUM CHLORIDE 0.9% IV 250 ML 78.57 MG IVPB (18:46)
[2025-02-27 20:53] LABS: Glucose Point of Care 206 mg/dl (65-105)
[2025-02-27] MEDS: INSULIN GLARGINE (*BKC) 100 UNITS/ML 27 UNITS SUB-Q (21:08)
[2025-02-28] VITALS: PULSE 98
[2025-02-28] MEDS: HYDROcodone/acetaminophen (*CRX) 5-325 MG TABLET 1 TAB PO ×3 (01:38→10:06)
[2025-02-28 04:00] VITALS: PULSE 104
[2025-02-28 05:20] LABS: Basophils Absolute Auto 0.1 K/mm3 (0.0-0.1); Basophils Percent Auto 0.7 % (0.2-1.2); Eosinophils Absolute Auto 0.1 K/mm3 (0-0.3); Eosinophils Percent Auto 1.7 % (0-4.4); Hematocrit 29.9 % (42.0-52.0); Hemoglobin 9.3 g/dL (14.0-18.0); Immature Granulocyte Absolute 0.03 K/mm3 (0.00-0.031); Immature Granulocyte Percent A 0.4 % (0-0.5); Lymphocytes Absolute Auto 1.92 K/mm3 (0.9-3.2); Lymphocytes Percent Auto 26.7 % (18.3-44.2); Mean Corpuscular HGB Conc 31.1 g/dl (32-36); Mean Corpuscular Hemoglobin 24.5 pg (26-34); Mean Corpuscular Volume 78.9 fl (80-100); Mean Platelet Volume 9.1 fl (7.4-10.4); Monocytes Absolute Auto 0.7 K/mm3 (0.1-0.6); Monocytes Percent Auto 9.2 % (2.6-8.5); Neutrophils Absolute Auto 4.4 K/mm3 (1.3-6.7); Neutrophils Percent Auto 61.3 % (45.5-73.1); Platelet Count Result 373 k/mm3 (150-375); Red Blood Count 3.79 M/mm3 (4.6-6.20); Red Cell Distribution Width 13.9 % (11.5-14.5); White Blood Count 7.2 K/mm3 (4.5-10.0)
[2025-02-28 05:34] LABS: Alanine Aminotransferase 27 U/L (6-50); Albumin Level 3.3 g/dL (3.5-5.1); Alkaline Phosphatase 196 U/L (38-126); Anion Gap 10 mmol/L (4-12); Aspartate Amino Transferase 29 U/L (17-59); Bilirubin,Total 0.3 mg/dL (0.2-1.3); Blood Urea Nitrogen 19 mg/dL (9-20); Carbon Dioxide 26 mmol/L (22-30); Chloride 99 mmol/L (98-107); Estimated CRCL calculation 88 ml/min; Estimated Glomerular Filt Rate > 60; Glucose 157 mg/dL (65-110); Sodium 135 mmol/L (137-145)
[2025-02-28 06:00] VITALS: BP 148/95; PULSE 100; RESP 18; TEMP 36.4; O2SAT 100
--- NOTE | 2025-02-28 07:36 | P.PNIM_ITS ---
Progress Note: A&P Assessment and Plan (1) Diabetes: Code(s): E11.9 - Type 2 diabetes mellitus without complications Status: Acute Assessment and Plan: patient reported he was previously diagnosed with diabetes type 2 insulin controlled previously on 30 units Lantus as well as sliding scale however 1 year ago patient lost his insurance and it has a follow-up with the primary care physician or taken his insulin since * Accu-Cheks a.c. HS * sliding scale insulin * on 27 untis Lantus HS * A1C 11 * lipid panel * Diabetic diet * consult to telehealth nurse educator * encourage lifestyle modifications and weight loss * continue atorvastatin * Watch for hypoglycemia/hypoglycemic protocol ordered * patient is going to need a glucometer, strips and pen needles the discharge as well as orders for long-acting and short-acting insulin (2) Leg weakness, bilateral: Code(s): R29.898 - Other symptoms and signs involving the musculoskeletal system Status: Chronic Assessment and Plan: lower leg weakness and pain likely secondary to uncontrolled diabetes with peripheral vascular disease as well as weakness contributing to anemia * resumed insulin * CT head negative for acute abnormality * started low-dose gabapentin EMG/NCV outpatient * MRI had been ordered patient refused * (3) Microcytic anemia: Code(s): D50.9 - Iron deficiency anemia, unspecified Status: Acute Assessment and Plan: patient with microcytic iron deficiency anemia * started patient on ferrous sulfate p.o. b.i.d. (4) Hypertension: Code(s): I10 - Essential (primary) hypertension Status: Acute Assessment and Plan: patient was hypertensive upon admission hold losartan with Humberto * monitor BP per unit protocol * (5) HUMBERTO (acute kidney injury): Code(s): N17.9 - Acute kidney failure, unspecified Status: Acute Assessment and Plan: hold losartan (6) Renal cell carcinoma: Code(s): C64.9 - Malignant neoplasm of unspecified kidney, except renal pelvis Status: Acute Assessment and Plan: Found on CT and ultrasound Urology and oncology consult Continue to monitor Plan Code status: Full code per patient DVT prophylaxis: SCD Stress ulcer prophylaxis: Protonix 40 daily PT/OT notes: pending Disposition: patient was admitted to the medical unit for further evaluation treatment of generalized weakness and bilateral lower extremity weakness wand L shoulder pain. will follow CT L shoulder. PT/ OT ordered Subjective Date/time seen: 02/28/25 07:36 Interval history: per HPI: Patient is a 55-year-old male 6 who presented to the emergency department with worsening bilateral lower extremity pain and weakness for the last week as well as just generalized weakness. Patient also endorses sinus congestion and shortness of breath. patient denied any chest pain, dizziness, nausea, vomiting, abdominal pain however did endorse increased thirst and urination. at 1st patient denied any past medical history however after further investigation patient stated he had a history of diabetes insulin controlled but had to stop taking his insulin 1 year ago after he lost his insurance and was unable to afford it reports he has not followed up with her primary care physician since. CXR showed no acute cardiopulmonary process and CTA of head and neck with no acute intracranial carotid stenosis 4% 6%. Labs were significant for microcytic anemia with a hemoglobin 9.6, and hyperglycemia with blood sugars close to 300. Patient was admitted for evaluation and treatment of generalized weakness and BLE weakness. ED did consult neurology for any neurological evaluation and ordered a MRI which patient refused. 02/25/25 Patient was seen and examined at bedside. Mainly complaining of left shoulder pain. Short of the breath better. Denies any chest pain, abdominal pain, nausea vomiting. WBC 6.7, hemoglobin 9.1, sodium 133, creatinine 1.36. Patient refused MRI. CT shoulder negative for acute abnormalities. We will order PT OT' 02/26/25 Patient was seen and examined at bedside. Is feeling better. Left shoulder is better. PT recommended rehab. Will add lidocaine patch 02/27/25 Patient was seen and examined at bedside. complaining of left shoulder pain. Ultrasound and CT concerning for RCC. Urology and oncology consult ordered 02/28/25 patient was seen and examined at bedside. Chest CT negative for acute abnormality. Negative for metastasis Reviewed oncology notes. Bone scan for staging has been ordered Reviewed urology notes plan to follow-up outpatient WBC 7.2, hemoglobin 9.3, sodium 135 potassium Review of Systems Review of Systems: All systems reviewed & are unremarkable except as noted in HPI and below Exam Const: General: comfortable and no acute distress Other: Pleasant male obese and appears older then stated age HENMT: Mouth: Yes moist mucous membranes Eyes: General: appearance normal, both eyes and all related structures Pupils: Equal, round and reactive pupils present Neck: Neck: supple and no JVD Resp: Effort & Inspection: normal respiratory effort Auscultation: clear to auscultation bilaterally Cardio: Rate: tachycardic Rhythm: regular rhythm GI: Auscultation: normal bowel sounds Other: Obese Neuro: General: gait normal Cranial nerves: Yes Equal, round and reactive pupils present Speech: normal speech Motor exam (neuro): Abnormal motor strength present (BLE) Sensory Exam: normal sensation Extrem: General: normal to inspection Other: Decreased ROM of left upper extremity Psych: Mental Status: mental status grossly normal Affect: normal affect Objective Data Vital Signs Vital Signs: Vital Signs - 24 hr 02/27/25 08:00 02/27/25 12:00 02/27/25 14:00 Temperature 98.6 F Pulse Rate 96 95 95 Respiratory Rate 18 Blood Pressure 153/82 H Pulse Oximetry 98 Oxygen Delivery 02/27/25 16:00 02/27/25 20:00 02/27/25 20:00 Temperature Pulse Rate 112 H 100 Respiratory Rate Blood Pressure Pulse Oximetry Oxygen Delivery Room Air 02/27/25 22:00 02/28/25 00:00 02/28/25 04:00 Temperature 98.1 F Pulse Rate 108 H 98 104 H Respiratory Rate 18 Blood Pressure 176/83 H Pulse Oximetry 100 Oxygen Delivery 02/28/25 06:00 Temperature 97.6 F Pulse Rate 100 Respiratory Rate 18 Blood Pressure 148/95 H Pulse Oximetry 100 Oxygen Delivery Intake/Output Intake/Output: Intake & Output 02/25/25 02/26/25 02/27/25 02/28/25 23:59 23:59 23:59 23:59 Intake Total 1484 1110 3340 Output Total 1100 1450 3290 790 Balance 384 -340 50 -790 Meds/Results Medications: Active Medications Generic Name Dose Route Start Last Admin Trade Name Freq PRN Reason Stop Dose Admin Acetaminophen 650 mg 02/23/25 19:01 Acetaminophen 325 Mg Tablet PO Q4H PRN Mild Pain (1-3) or Fever Hydrocodone Bitart/Acetaminophen 1 tab 02/23/25 19:01 02/28/25 05:39 Hydrocodone/Acetaminophen (*Crx) 5-325 Mg Tablet PO 1 tab Q4H PRN Administration Pain Rated 4-6 Alprazolam 0.25 mg 02/25/25 11:27 02/27/25 10:04 Alprazolam (*Crx) 0.25 Mg Tablet PO 0.25 mg TID PRN Administration Anxiety Atorvastatin Calcium 20 mg 02/25/25 09:00 02/27/25 08:21 Atorvastatin 20 Mg Tablet PO 20 mg DAILY SHIRA Administration Dextrose 12.5 gm 02/24/25 08:09 Dextrose 50% 25 Gm/50 Ml Syringe IV PUSH PRN PRN Hypoglycemia Protocol Ferrous Sulfate 325 mg 02/24/25 17:00 02/27/25 16:44 Ferrous Sulfate [address] PO 325 mg BID SHIRA Administration Gabapentin 100 mg 02/24/25 14:00 02/27/25 16:44 Gabapentin 100 Mg Capsule PO 100 mg TID SHIRA Administration Glucagon 1 mg 02/24/25 08:09 Glucagon For Inj 1 Mg Vial IM PRN PRN Hypoglycemia Protocol Glucose 15 gm 02/24/25 08:09 Glucose Oral Gel 15 Gm Of Glucse In 37.5 Gm Tube PO PRN PRN Hypoglycemia Protocol Dextrose 1,000 mls @ 100 mls/hr 02/24/25 08:09 Dextrose 5% 1,000 Ml IVPB PRN PRN Hypoglycemia Protocol Insulin Aspart 2 - 5 units 02/24/25 08:00 02/27/25 17:17 Insulin Aspart (*Bkc) 100 Units/Ml SUB-Q 2 units TIDWM SHIRA Administration Protocol Insulin Glargine 27 units 02/24/25 21:00 02/27/25 21:08 Insulin Glargine (*Bkc) 100 Units/Ml 0.2 units/kg (27 units) 27 units SUB-Q Administration HS [facility] Losartan Potassium 25 mg 02/24/25 13:45 02/24/25 14:44 Losartan Potassium 25 Mg Tablet PO 25 mg DAILY SHIRA Administration Miscellaneous Information 1 each 02/25/25 00:01 Xanax 0.25mg And 0.5 Mg Have Duplicate Prn Indications. Please Clarify When To Use Which ( XX 03/27/25 00:00 CLARIFY SHIRA Ondansetron HCl 4 mg 02/23/25 19:01 Ondansetron Inj 4 Mg/2 Ml Vial IV PUSH Q4H PRN Nausea Radiology Results: ITS Impressions Chest X-Ray 02/23/25 14:29 IMPRESSION: 1. No acute cardiopulmonary disease. Head/Neck CTA 02/23/25 17:36 IMPRESSION: 1. Mild atherosclerotic disease detected bilaterally. Percent stenosis per NASCET criteria is 6% on the right (calcified) and 9% on the left (soft appearing). 2. No acute intracranial hemorrhage or suspicious mass effect. Shoulder CT 02/25/25 15:24 IMPRESSION: 1. Moderate left glenohumeral osteoarthritis with high-grade chondromalacia along the superior to posterior glenoid. 2. Left supraspinatus and infraspinatus calcific tendinitis. Renal Ultrasound 02/26/25 14:11 IMPRESSION: 1. 8.8 cm exophytic mass which appears to arise from the lower pole the right kidney which is concerning for renal cell carcinoma. Recommend pre and postcontrast MRI or CT for further evaluation. Abdomen/Pelvis CT 02/27/25 11:31 Impression: Large right renal mass, as detailed above, compatible with renal cell carcinoma. surgical/oncologic consultation required. Chest CT 02/27/25 20:28 IMPRESSION: No evidence of metastatic disease in the chest, as detailed above Labs Labs: Laboratory Results - last 24 hr 02/27/25 02/27/25 02/27/25 07:59 12:04 16:54 WBC RBC Hgb Hct MCV MCH MCHC RDW Plt Count MPV Immature Gran % (Auto) Neut % (Auto) Lymph % (Auto) [place] % (Auto) Eos % (Auto) Baso % (Auto) Lymph # (Auto) [place] # (Auto) Eos # (Auto) Baso # (Auto) Abs Immat Gran (auto) Absolute Neuts (auto) Absolute Nucleated RBC Nucleated RBC % Sodium Potassium Chloride Carbon Dioxide Anion Gap BUN Creatinine Estim Creat Clear Calc Estimated GFR Glucose POC Capillary Glucose 181 H 194 H 229 H Calcium Total Bilirubin AST ALT Alkaline Phosphatase Total Protein Albumin 02/27/25 02/28/25 20:50 05:02 WBC 7.2 RBC 3.79 L Hgb 9.3 L Hct 29.9 L MCV 78.9 L MCH 24.5 L MCHC 31.1 L RDW 13.9 Plt Count 373 MPV 9.1 Immature Gran % (Auto) 0.4 Neut % (Auto) 61.3 Lymph % (Auto) 26.7 [place] % (Auto) 9.2 H Eos % (Auto) 1.7 Baso % (Auto) 0.7 Lymph # (Auto) 1.92 [place] # (Auto) 0.7 H Eos # (Auto) 0.1 Baso # (Auto) 0.1 Abs Immat Gran (auto) 0.03 Absolute Neuts (auto) 4.4 Absolute Nucleated RBC 0.000 Nucleated RBC % 0.0 Sodium 135 L Potassium 4.0 Chloride 99 Carbon Dioxide 26 Anion Gap 10 BUN 19 Creatinine 1.22 Estim Creat Clear Calc 88 Estimated GFR > 60 Glucose 157 H POC Capillary Glucose 206 H Calcium 9.0 Total Bilirubin 0.3 AST 29 ALT 27 Alkaline Phosphatase 196 H Total Protein 7.0 Albumin 3.3 L Quality VTE Prophylaxis VTE prophylaxis: mechanical ordered
[2025-02-28 08:08] LABS: Glucose Point of Care 133 mg/dl (65-105)
[2025-02-28] MEDS: ATORVASTATIN 20 MG TABLET PO (10:06)
[2025-02-28] MEDS: GABAPENTIN 100 MG CAPSULE PO ×2 (10:06→14:05)
[2025-02-28] MEDS: FERROUS SULFATE 325 MG TABLET DR PO (10:06)
--- NOTE | 2025-02-28 10:17 | P.PNUR_ITS ---
Progress Note: A&P Assessment and Plan (1) Renal mass, right: Code(s): N28.89 - Other specified disorders of kidney and ureter Status: Acute Assessment and Plan: Will review films. Discuss hand assisted laparoscopic right radical nephrectomy along with this risks and complications. Will need to make sure we have clearance from a medical standpoint with good blood sugar controls. Need to get more active and find the cause for his back and shoulder pain. Subjective Subjective Date/Time Seen: 02/28/25 10:17 Principal diagnosis: Right renal mass Interval history: Met Isma for the 1st time today. The of the large right renal mass with no evidence of metastatic disease at this time. I will need to personally review those films with the radiologist. Unfortunately he is not very mobile and has had quite a bit a weakness with loss of muscle mass. He is complaining of significant back and shoulder pain. Etiology will need to be established for that also. Need to find out how well his blood sugars will be controlled as t hat is another factor in the healing process. Review of Systems Review of Systems: All systems reviewed & are unremarkable except as noted in HPI and below Exam Const: General: cooperative; No comfortable Resp: Effort & Inspection: normal respiratory effort Cardio: Rate: regular rate Rhythm: regular rhythm Objective Data Vital Signs Vital Signs: Vital Signs - 24 hr 02/27/25 12:00 02/27/25 14:00 02/27/25 16:00 Temperature 37.0 C Pulse Rate 95 95 112 H Respiratory Rate 18 Blood Pressure 153/82 H Pulse Oximetry 98 Oxygen Delivery 02/27/25 20:00 02/27/25 20:00 02/27/25 22:00 Temperature 36.7 C Pulse Rate 100 108 H Respiratory Rate 18 Blood Pressure 176/83 H Pulse Oximetry 100 Oxygen Delivery Room Air 02/28/25 00:00 02/28/25 04:00 02/28/25 06:00 Temperature 36.4 C Pulse Rate 98 104 H 100 Respiratory Rate 18 Blood Pressure 148/95 H Pulse Oximetry 100 Oxygen Delivery Intake/Output Intake/Output: Intake & Output 02/25/25 02/26/25 02/27/25 02/28/25 23:59 23:59 23:59 23:59 Intake Total 1484 1110 3340 240 Output Total 1100 1450 3290 790 Balance 384 -340 50 -550 Meds/Results Medications: Active Medications Generic Name Dose Route Start Last Admin Trade Name Freq PRN Reason Stop Dose Admin Acetaminophen 650 mg 02/23/25 19:01 Acetaminophen 325 Mg Tablet PO Q4H PRN Mild Pain (1-3) or Fever Hydrocodone Bitart/Acetaminophen 1 tab 02/23/25 19:01 02/28/25 05:39 Hydrocodone/Acetaminophen (*Crx) 5-325 Mg Tablet PO 1 tab Q4H PRN Administration Pain Rated 4-6 Alprazolam 0.25 mg 02/25/25 11:27 02/27/25 10:04 Alprazolam (*Crx) 0.25 Mg Tablet PO 0.25 mg TID PRN Administration Anxiety Atorvastatin Calcium 20 mg 02/25/25 09:00 02/28/25 10:06 Atorvastatin 20 Mg Tablet PO 20 mg DAILY SHIRA Administration Dextrose 12.5 gm 02/24/25 08:09 Dextrose 50% 25 Gm/50 Ml Syringe IV PUSH PRN PRN Hypoglycemia Protocol Ferrous Sulfate 325 mg 02/24/25 17:00 02/28/25 10:06 Ferrous Sulfate [address] PO 325 mg BID SHIRA Administration Gabapentin 100 mg 02/24/25 14:00 02/28/25 10:06 Gabapentin 100 Mg Capsule PO 100 mg TID SHIRA Administration Glucagon 1 mg 02/24/25 08:09 Glucagon For Inj 1 Mg Vial IM PRN PRN Hypoglycemia Protocol Glucose 15 gm 02/24/25 08:09 Glucose Oral Gel 15 Gm Of Glucse In 37.5 Gm Tube PO PRN PRN Hypoglycemia Protocol Dextrose 1,000 mls @ 100 mls/hr 02/24/25 08:09 Dextrose 5% 1,000 Ml IVPB PRN PRN Hypoglycemia Protocol Insulin Aspart 2 - 5 units 02/24/25 08:00 02/28/25 09:51 Insulin Aspart (*Bkc) 100 Units/Ml SUB-Q Not Given TIDWM ON LICENSE OF [facility] Protocol Insulin Glargine 27 units 02/24/25 21:00 02/27/25 21:08 Insulin Glargine (*Bkc) 100 Units/Ml 0.2 units/kg (27 units) 27 units SUB-Q Administration HS SHIRA Losartan Potassium 25 mg 02/24/25 13:45 02/24/25 14:44 Losartan Potassium 25 Mg Tablet PO 25 mg DAILY SHIRA Administration Miscellaneous Information 1 each 02/25/25 00:01 Xanax 0.25mg And 0.5 Mg Have Duplicate Prn Indications. Please Clarify When To Use Which ( XX 03/27/25 00:00 CLARIFY SHIRA Ondansetron HCl 4 mg 02/23/25 19:01 Ondansetron Inj 4 Mg/2 Ml Vial IV PUSH Q4H PRN Nausea Radiology Results: ITS Impressions Chest X-Ray 02/23/25 14:29 IMPRESSION: 1. No acute cardiopulmonary disease. Head/Neck CTA 02/23/25 17:36 IMPRESSION: 1. Mild atherosclerotic disease detected bilaterally. Percent stenosis per NASCET criteria is 6% on the right (calcified) and 9% on the left (soft appearing). 2. No acute intracranial hemorrhage or suspicious mass effect. Shoulder CT 02/25/25 15:24 IMPRESSION: 1. Moderate left glenohumeral osteoarthritis with high-grade chondromalacia along the superior to posterior glenoid. 2. Left supraspinatus and infraspinatus calcific tendinitis. Renal Ultrasound 02/26/25 14:11 IMPRESSION: 1. 8.8 cm exophytic mass which appears to arise from the lower pole the right kidney which is concerning for renal cell carcinoma. Recommend pre and postcontrast MRI or CT for further evaluation. Abdomen/Pelvis CT 02/27/25 11:31 Impression: Large right renal mass, as detailed above, compatible with renal cell carcinoma. surgical/oncologic consultation required. Chest CT 02/27/25 20:28 IMPRESSION: No evidence of metastatic disease in the chest, as detailed above Labs Labs: Laboratory Results - last 24 hr 02/27/25 02/27/25 02/27/25 12:04 16:54 20:50 WBC RBC Hgb Hct MCV MCH MCHC RDW Plt Count MPV Immature Gran % (Auto) Neut % (Auto) Lymph % (Auto) [place] % (Auto) Eos % (Auto) Baso % (Auto) Lymph # (Auto) [place] # (Auto) Eos # (Auto) Baso # (Auto) Abs Immat Gran (auto) Absolute Neuts (auto) Absolute Nucleated RBC Nucleated RBC % Sodium Potassium Chloride Carbon Dioxide Anion Gap BUN Creatinine Estim Creat Clear Calc Estimated GFR Glucose POC Capillary Glucose 194 H 229 H 206 H Calcium Total Bilirubin AST ALT Alkaline Phosphatase Total Protein Albumin 02/28/25 02/28/25 05:02 08:04 WBC 7.2 RBC 3.79 L Hgb 9.3 L Hct 29.9 L MCV 78.9 L MCH 24.5 L MCHC 31.1 L RDW 13.9 Plt Count 373 MPV 9.1 Immature Gran % (Auto) 0.4 Neut % (Auto) 61.3 Lymph % (Auto) 26.7 [place] % (Auto) 9.2 H Eos % (Auto) 1.7 Baso % (Auto) 0.7 Lymph # (Auto) 1.92 [place] # (Auto) 0.7 H Eos # (Auto) 0.1 Baso # (Auto) 0.1 Abs Immat Gran (auto) 0.03 Absolute Neuts (auto) 4.4 Absolute Nucleated RBC 0.000 Nucleated RBC % 0.0 Sodium 135 L Potassium 4.0 Chloride 99 Carbon Dioxide 26 Anion Gap 10 BUN 19 Creatinine 1.22 Estim Creat Clear Calc 88 Estimated GFR > 60 Glucose 157 H POC Capillary Glucose 133 H Calcium 9.0 Total Bilirubin 0.3 AST 29 ALT 27 Alkaline Phosphatase 196 H Total Protein 7.0 Albumin 3.3 L
[2025-02-28 11:41] LABS: Glucose Point of Care 149 mg/dl (65-105)
--- NOTE | 2025-02-28 11:51 | P.DS_ITS ---
DS: Admitting Diagnosis Discharge Date 02/28/25 Admitting Diagnosis Shoulder pain/degenerative arthritis DS: Discharge Diagnosis Discharge Diagnosis (1) Renal mass, right: Code(s): N28.89 - Other specified disorders of kidney and ureter Status: Acute Assessment and Plan: Found on CT and ultrasound CT chest negative for metastasis Plan for bone scan as outpatient. Biopsy versus surgery outpatient. Urology and oncology on board. Patient needs to follow up outpatient (2) Declining functional status: Code(s): R53.81 - Other malaise Status: Acute Assessment and Plan: Neuropathy Follow with neurologist for EMG/NCV as outpatient (3) Anxiety: Code(s): F41.9 - Anxiety disorder, unspecified Status: Acute (4) Diabetes: Code(s): E11.9 - Type 2 diabetes mellitus without complications Status: Acute Assessment and Plan: Patient to check blood sugar regularly Taking insulin at home (5) Hyperglycemia: Code(s): R73.9 - Hyperglycemia, unspecified Status: Acute Assessment and Plan: As above (6) Shoulder pain, right: Code(s): M25.511 - Pain in right shoulder Status: Acute Assessment and Plan: CT showed tendinitis and chronic degenerative changes Pain medication Follow-up with orthopedic as outpatient DS: Summary Hospital Course Hospital Course: per HPI: Patient is a 55-year-old male 6 who presented to the emergency department with worsening bilateral lower extremity pain and weakness for the last week as well as just generalized weakness. Patient also endorses sinus congestion and shortness of breath. patient denied any chest pain, dizziness, nausea, vomiting, abdominal pain however did endorse increased thirst and urination. at 1st patient denied any past medical history however after further investigation patient stated he had a history of diabetes insulin controlled but had to stop taking his insulin 1 year ago after he lost his insurance and was unable to afford it reports he has not followed up with her primary care physician since. CXR showed no acute cardiopulmonary process and CTA of head and neck with no acute intracranial carotid stenosis 4% 6%. Labs were significant for microcytic anemia with a hemoglobin 9.6, and hyperglycemia with blood sugars close to 300. Patient was admitted for evaluation and treatment of generalized weakness and BLE weakness. ED did consult neurology for any neurological evaluation and ordered a MRI which patient refused. 02/28/25 Patient mainly complaining of left shoulder pain. CT showed chronic changes. Patient with pain medication and pain was under control. Neurology, recommended follow up with EMG and NCV as outpatient. Patient had ARSALAN. Ultrasound and CT concerning for RCC. Urology and oncology were consulted . Chest CT negative for acute abnormality. Negative for metastasis Reviewed oncology notes. Bone scan for staging has been ordered Reviewed urology notes plan to follow-up outpatient Patient was seen examined at bedside. Still complaining of left shoulder pain but is under control. Denies any chest pain, shortness breath, abd pain, nausea vomiting. Discussed the plan with the patient. Status at Discharge Functional status at discharge: uses cane/walker Overall status at discharge: patient is progressing back to baseline Time Spent with Patient Time attestation: Total time spent providing and/or coordinating discharge services: Exam Narrative: Const: General: comfortab le and no acute di stress Other: Pleasant male obes e and appears olde r then stated age HENMT: Mouth: Yes moist m ucous membranes Eyes: General: appearanc e normal, both eye s and all related structures Pupils : Equal, round and reactive pupils p resent Neck: Neck: supple and n o JVD Resp: Effort & Inspectio n: normal respirat ory effort Auscul tation: clear to a uscultation bilate rally Cardio: Rate: tachycardic Rhythm: regular r hythm GI: Auscultation: norm al bowel sounds O ther: Obese Neuro: General: gait norm al Cranial nerves : Yes Equal, round and reactive pupi ls present Speech : normal speech M otor exam (neuro): Abnormal motor st rength present (BL E) Sensory Exam: normal sensation Extrem: General: normal to inspection Other : Decreased ROM of left upper extr emity Psych: Mental Status: men manolo status grossly normal Affect: n ormal affect DS: Data Data Completed and Pending Labs on day of discharge: Labs from last 24 hours 02/28/25 02/28/25 02/28/25 11:37 08:04 05:02 WBC 7.2 RBC 3.79 L Hgb 9.3 L Hct 29.9 L MCV 78.9 L MCH 24.5 L MCHC 31.1 L RDW 13.9 Plt Count 373 MPV 9.1 Immature Gran % (Auto) 0.4 Neut % (Auto) 61.3 Lymph % (Auto) 26.7 [place] % (Auto) 9.2 H Eos % (Auto) 1.7 Baso % (Auto) 0.7 Lymph # (Auto) 1.92 [place] # (Auto) 0.7 H Eos # (Auto) 0.1 Baso # (Auto) 0.1 Abs Immat Gran (auto) 0.03 Absolute Neuts (auto) 4.4 Absolute Nucleated RBC 0.000 Nucleated RBC % 0.0 Sodium 135 L Potassium 4.0 Chloride 99 Carbon Dioxide 26 Anion Gap 10 BUN 19 Creatinine 1.22 Estim Creat Clear Calc 88 Estimated GFR > 60 Glucose 157 H POC Capillary Glucose 149 H 133 H Calcium 9.0 Total Bilirubin 0.3 AST 29 ALT 27 Alkaline Phosphatase 196 H Total Protein 7.0 Albumin 3.3 L 02/27/25 02/27/25 02/27/25 20:50 16:54 12:04 WBC RBC Hgb Hct MCV MCH MCHC RDW Plt Count MPV Immature Gran % (Auto) Neut % (Auto) Lymph % (Auto) [place] % (Auto) Eos % (Auto) Baso % (Auto) Lymph # (Auto) [place] # (Auto) Eos # (Auto) Baso # (Auto) Abs Immat Gran (auto) Absolute Neuts (auto) Absolute Nucleated RBC Nucleated RBC % Sodium Potassium Chloride Carbon Dioxide Anion Gap BUN Creatinine Estim Creat Clear Calc Estimated GFR Glucose POC Capillary Glucose 206 H 229 H 194 H Calcium Total Bilirubin AST ALT Alkaline Phosphatase Total Protein Albumin Discharge Plan Discharge Consulting providers: Shameka Patel; Claire Coleman; Rehana Briseno; Seng Lopes; Cristóbal Briggs Discharging Clinician: Ron Mcgarry Patient Disposition: Home, Self-Care Activity: as tolerated Diet: heart healthy and diabetic Discharge Instructions: Please follow with PCP in 1 week Follow-up with neurology as outpatient for EMG/NCV test Follow-up with Urology and Oncology as outpatient Check your blood pressure, heart rate and blood sugar regularly and report of CP Follow-up with bone scan as outpatient Patient Instructions: Antibiotic Form Patient Language: Somali Stand Alone Forms: General Discharge Information Follow-up/Referrals: Rodrigo Márquez MD [Physician] - Call for Appointment (Right renal mass) Cristóbal Briggs MD [Physician] - Shameka Patel DO [Physician] - Claire Coleman MD [Physician] - Discharge Medications: New alprazolam 0.25 mg Tablet 0.25 mg PO TID PRN (Reason: Anxiety) Qty: 10 0RF hydrocodone-acetaminophen 5-325 mg Tablet 1 tablet PO Q4H PRN (Reason: Pain Rated 4-6) Qty: 20 0RF insulin glargine [Lantus Solostar U-100 Insulin] 100 unit/mL (3 mL) insulin pen 27 unit subcut HS Qty: 30 0RF ferrous sulfate 325 mg (65 mg iron) Tablet,Delayed Release (Dr/Ec) 325 mg PO BID Qty: 60 0RF losartan 25 mg Tablet 25 mg PO DAILY Qty: 30 0RF gabapentin 100 mg Capsule 100 mg PO TID Qty: 90 0RF atorvastatin 20 mg Tablet 20 mg PO DAILY Qty: 30 0RF Date of admission: 02/23/25 19:01 Primary Care Provider: PHYSICIAN,MEDICAL SERVICES ASSISTANT Admitting Provider: Alireza Piedra Attending physician on admission: Ron Mcgarry Condition: Stable
[2025-02-28] MEDS: ALPRAZolam (*CRX) 0.25 MG TABLET PO (15:30)
--- NOTE | 2025-03-02 12:35 | PCCDE ---
Addendum entered by Elaina Lee, LISSETTE, LDN, CDE 03/02/25 13:01: 4: 12:45pm Pt returned message. stating he never changed outgoing voice message. Pt reports home fasting yest/today: 125-127 Pre D seeing 170's. Still experiencing pain on pain med. Reports taking insulin rx'd at [place]. Had to pay out of pocket as he states his insurance cancelled him. He is working on resolving the issue. Also reportedly working on finding PCP Asking target glucose numbers and what's considered too low - Advised ADA target glucose numbers and hypoglycemia and Directed to magazine previously provided for additional details/support - Educated re: pain potential effect glucose. - Provided 211[employer] information -Directed to information previously provided re: discounted insulin (pt reports he has good inventory currently) VENKAT Original Note: 03/02/25 Called cell number in summary. Outgoing message indicates a business. Generic msg left including call back number. VENKAT.
== END 2025-02-28 15:31 | disposition home or self-care (01) ==
LOC: ANHED 20:16 → ANH2MED 20:18
PROVIDERS: Nurse Practitioner Family; Registered Nurse; Student in an Organized Health Care Education/Training Program; Admitting Provider Internal Medicine; Emergency Provider Emergency Medicine; Visit Provider Internal Medicine
DX: N17.9 Acute kidney failure, unspecified (principal); N28.89 Other specified disorders of kidney and ureter; R53.1 Weakness; R53.81 Other malaise; R29.898 Other symptoms and signs involving the musculoskeletal system; R06.02 Shortness of breath; M25.512 Pain in left shoulder; M54.50 Low back pain, unspecified; G89.29 Other chronic pain; E11.42 Type 2 diabetes mellitus with diabetic polyneuropathy; E11.65 Type 2 diabetes mellitus with hyperglycemia; F41.9 Anxiety disorder, unspecified; D50.9 Iron deficiency anemia, unspecified; I10 Essential (primary) hypertension; F17.220 Nicotine dependence, chewing tobacco, uncomplicated; E66.9 Obesity, unspecified; Z68.37 Body mass index [BMI] 37.0-37.9, adult; Z91.141 Patient's other noncompliance with medication regimen due to financial hardship; Z80.3 Family history of malignant neoplasm of breast; Z88.0 Allergy status to penicillin
CPT/HCPCS: 36415; 70496; 70498; 71045; 71260; 73200; 74178; 76775; 80053; 80061; 80307; 81001; 82948; 83036; 83540; 83550; 83735; 84443; 84484; 85025; 85610; 85730; 87637; 93005; 96374; 97161; 97165; 99285; A9270; G0378; J1756; J1815; J7050; Q9967

== ENCOUNTER 2025-03-05 20:40 | Observation (INO) | payer SELFPAY ==
--- NOTE | ~2025-03-05 | CT_ITS ---
CT brain wo con Ordering provider: Alireza Scott MD History: 55 years Male with . weakness, falls . Comparison: February 23, 2025 Technique: CT of the head without contrast. Radiation reduction technique utilized.The dose-length pr oduct was 681 mGy-cm. FINDINGS: BRAIN PARENCHYMA AND CSF SPACES: No midline shift, mass effect or hemorrhage. The brain parenchyma a nd CSF spaces are otherwise normal. VISUALIZED PARANASAL SINUSES: Well aerated. MASTOIDS: Well aerated. BONES: The bones appear intact. SOFT TISSUES: Visualized nasopharynx is normal. Superficial soft tissues are normal. IMPRESSION: No acute intracranial findings. Reviewed, dictated and finalized at location A.
--- NOTE | ~2025-03-05 | CT_ITS ---
EXAM/PROCEDURE: CT shoulder RT wo con 03/07/2025 12:40 CDT HISTORY: Severe pain/immobility COMPARISON: Abdomen radiograph dated 03/07/2025 TECHNIQUE: Axial CT of the right shoulder was obtained. Coronal and sagittal reformats were obtained from axial data set. FINDINGS: There are no fractures or dislocations. Joint space narrowing, subchondral sclerosis, subchondral cyst formation and osteophyte formation, co mpatible with emyv-cm-coenybnk osteoarthritis. Visualized soft tissue are within normal limits. IMPRESSION: 1. No fracture. 2. Mild to moderate osteoarthritis. Reviewed, dictated and finalized at location A.
--- NOTE | ~2025-03-05 | CT_ITS ---
CTA chest PE abdomen pel Ordering provider: Alireza Scott MD History: . dyspnea, hx of renal cell . Comparison: February 27, 2025 CT chest and February 28, 2024 CT abdomen Technique: CT angiogram chest was performed following timed intravenous injection of contrast. Thin s lice axial images and reformatted coronal images were obtained. Three dimensional reformatted images of the chest were also obtained using a [employer] workstation. Also, CT of the abdomen and pelvis was pe rformed with IV contrast. . Automated exposure control and iterative reconstruction technique were e mployed. The dose-length product was 2711.33 mGy-cm. 100 mL Omnipaque 350 was given IV FINDINGS: CHEST: --PULMONARY ARTERIES: No pulmonary embolus. --VISUALIZED THORACIC INLET: Normal. --MEDIASTINUM: Aorta/coronary arteries: Mild atheromatous disease. Heart/other: The heart is slightly enlarged. Trace of pericardial effusion Lymph nodes: No mediastinal or hilar adenopathy. --LUNGS: No pulmonary nodules or masses. No infiltrates or effusions. No pneumothorax. --MUSCULOSKELETAL: Bones: Age appropriate degenerative changes of the spine. Superficial soft tissues: The superficial soft tissues are normal. ABDOMEN/PELVIS: --MUSCULOSKELETAL: Superficial soft tissues: The superficial soft tissues are normal. Bones: Age appropriate degenerative changes of the spine. --UPPER ABDOMINAL ORGANS: Liver: Hepatomegaly. Gallbladder: Normal. Spleen: Normal. Stomach/duodenum: Normal. Pancreas: Normal. Adrenals: Normal. Kidneys: Large mass seen in the right kidney lower pole area which is unchanged from previous examina tion measuring 9.6 x 8.4 cm. --PELVIC ORGANS: The bladder is normal. No bladder stones. --BOWEL AND MESENTERY: Colon: No evidence of diverticulitis. No evidence of appendicitis. Small Bowel: Normal. No obstruction. Peritoneum/mesentery: No free air or free fluid. No mesenteric lymphadenopathy. --RETROPERITONEUM: Mild atheromatous disease of the abdominal aorta. No retroperitoneal lymphadenop athy. para aortic lymph nodes seen with the largest measures 1.5 cm. IMPRESSION: CHEST: 1. No pulmonary embolism. 2. No acute cardiopulmonary pathology. 3. Cardiomegaly with minimal pericardial effusion. ABDOMEN/PELVIS: 1. Right renal mass unchanged from previous examination. 2. Hepatomegaly 3. No evidence of appendicitis, diverticulitis or intestinal obstruction. 4. Small para-aortic lymph nodes with the largest measuring 1.5 cm. Reviewed, dictated and finalized at location A.
--- NOTE | ~2025-03-05 | XR_ITS ---
EXAM/ PROCEDURE: XR shoulder RT min 2V - 03/07/2025 12:55 CDT HISTORY: 55 years old Male with pain, limited mobility COMPARISON: None available TECHNIQUE: Three view(s) FINDINGS/ IMPRESSION: There are no fractures or dislocations.Joint spaces are within normal limits Reviewed, dictated and finalized at location A.
--- NOTE | ~2025-03-05 | XR_ITS ---
XR chest 1V portable Ordering provider: Alireza Scott MD History: 55 years Male with . weakness . Comparison: February 23, 2025 FINDINGS: MEDIASTINUM: The cardiac silhouette is slightly enlarged. Congestive rob. LUNGS: No infiltrates, effusions or pneumothorax. Interstitial thickening bilaterally more on the rig ht side which may indicate edema versus pneumonitis. OTHER: No free air under the diaphragm. IMPRESSION: Interstitial changes which may indicate edema versus pneumonitis. Clinical correlation and follow-up advised. Reviewed, dictated and finalized at location A. IMPRESSION: Interstitial changes which may indicate edema versus pneumonitis. Clinical jaida elation and follow-up advised.
[2025-03-05 20:48] VITALS: BP 140/95; PULSE 91; RESP 14; TEMP 36.8; O2SAT 100
[2025-03-05 20:55] VITALS: PULSE 88
--- NOTE | 2025-03-05 20:55 | ECG_ITS ---
Test Date: 2025-03-05 20:59:42 Measurements Intervals [place] Rate: 89 P: 49 CA: 163 QRS: 62 QRSD: 96 T: 55 QT: 390 QTc: 475 Interpretive Statements SINUS RHYTHM BASELINE WANDER- I, III, AVR, AVL, AVF NORMAL ECG Compared to ECG 02/23/2025 12:57:17 HEART RATE HAS DECREASED Electronically Signed On 03-06-2025 06:18:57 CDT by Александр Oates D.O.
--- OUTSIDE RECORDS SUMMARY | 2025-03-05 21:24 | XMS_ITS | Continuity of Care Document ---
Author Organization [facility] Address [address] [place] [address] Phone Care Team Providers Care Technology Trainer Name Role Phone Hi Bai MD Unavailable Unavailable Procedures Procedure Date Office/outpatient Visit, New Office/outpatient Visit, New Advance Directives Directive Yes / No Effective Date File Name No Information Encounters Encounter Description Practice Location Reason(s) For Visit Diagnoses Date Provider Providers Copied on Encounter Office/outpat ient Visit, [facility], [address], [place], [place], [id number], [place] tel:[phone] [address] [place] Professional No Information 1 Bhumika Do[address] [place], [place], [id number], [place]. tel:[phone] Referring Provider: Hi Santana, [address] [facility] [place], [address] . tel:[phone] Family History Family Member Type Diagnosis Age At Onset No Information Payers Payer name Insurance type Covered libertarian ID Authoriza tion(s) No Information Social History [...]
--- OUTSIDE RECORDS SUMMARY | 2025-03-05 21:24 | XMS_ITS | Clinical Summary ---
Author Organization [facility] Address [address] [place] [address] Phone Care Team Providers Care Local Driver Name Role Phone Ochoa Olson Primary Care Provider [phone] Social History Tobacco Use Types Packs/Day Years [...] age to complete [place] [id number] [employer] Care Teams Local Driver Relationship Specialty Start Date End Date Ochoa Olson, [place] [address] [place] [id number] PCP - General Physician Quality Control Analyst 05/14/21
[2025-03-05 21:45] LABS: Basophils Absolute Auto 0.1 K/mm3 (0.0-0.1); Basophils Percent Auto 0.7 % (0.2-1.2); Eosinophils Absolute Auto 0.1 K/mm3 (0-0.3); Eosinophils Percent Auto 0.7 % (0-4.4); Hematocrit 28.9 % (42.0-52.0); Hemoglobin 9.2 g/dL (14.0-18.0); Immature Granulocyte Absolute 0.02 K/mm3 (0.00-0.031); Immature Granulocyte Percent A 0.3 % (0-0.5); Lymphocytes Absolute Auto 1.95 K/mm3 (0.9-3.2); Lymphocytes Percent Auto 27.9 % (18.3-44.2); Mean Corpuscular HGB Conc 31.8 g/dl (32-36); Mean Corpuscular Hemoglobin 24.7 pg (26-34); Mean Corpuscular Volume 77.7 fl (80-100); Monocytes Absolute Auto 0.7 K/mm3 (0.1-0.6); Monocytes Percent Auto 9.6 % (2.6-8.5); Neutrophils Absolute Auto 4.3 K/mm3 (1.3-6.7); Neutrophils Percent Auto 60.8 % (45.5-73.1); Platelet Count Result 372 k/mm3 (150-375); Red Blood Count 3.72 M/mm3 (4.6-6.20); Red Cell Distribution Width 14.2 % (11.5-14.5)
[2025-03-05 21:52] VITALS: BP 134/86; PULSE 88; RESP 13; O2SAT 100
[2025-03-05 21:55] LABS: Lactic Acid Reflex 1.1 mmol/L (0.7-2.0)
[2025-03-05 21:56] LABS: Alanine Aminotransferase 22 U/L (6-50); Albumin Level 3.4 g/dL (3.5-5.1); Alkaline Phosphatase 218 U/L (38-126); Anion Gap 9 mmol/L (4-12); Aspartate Amino Transferase 26 U/L (17-59); Bilirubin,Total 0.5 mg/dL (0.2-1.3); Blood Urea Nitrogen 21 mg/dL (9-20); Calcium 9.3 mg/dL (8.4-10.2); Carbon Dioxide 24 mmol/L (22-30); Chloride 100 mmol/L (98-107); Estimated CRCL calculation 96 ml/min; Estimated Glomerular Filt Rate > 60; Glucose 143 mg/dL (65-110); Potassium 4.1 mmol/L (3.4-5.0); Sodium 133 mmol/L (137-145)
[2025-03-05 21:57] LABS: INR 1.2; Partial Thromboplastin Time 33.7 Seconds (22.3-36.8); Prothrombin Time 15.5 Seconds (11.1-14.7)
[2025-03-05 22:00] VITALS: BP 154/95; PULSE 86; RESP 10; O2SAT 99
[2025-03-05 22:01] LABS: Add Urine Microscopic? YES; Appearance Urine Clear (Clear); Bacteria Urine None Seen /hpf; Bilirubin Urine Negative (Negative); Blood Urine Negative (Negative); Color Urine Yellow (Yellow); Glucose Urine UA Trace mg/dL (Negative); Ketones Urine Negative (Negative); Leukocyte Esterase Ur Negative LEU/UL (Negative); Need Manual Microscopic Reviewed; Nitrate Urine Negative (Negative); Protein Urine 3+ mg/dL (Negative); RBC Urine 0-2 /hpf (0-2); Specific Grav Ur 1.012 (1.001-1.035); Squamous Epithelial Cell Urine None Seen /hpf (Few); WBC Urine 0-5 /hpf (0-3); pH Urine 5.5 (5.0-9.0)
[2025-03-05 22:14] LABS: Procalcitonin 0.3 ng/mL
[2025-03-05 22:22] LABS: Influenza A QL RT-PCR Negative (Negative); Influenza B QL RT-PCR Negative (Negative); RSV RNA, RT-PCR Negative (Negative); SARS-CoV-2 RNA PCR Negative (Negative)
[2025-03-05 22:48] LABS: Alanine Aminotransferase 21 U/L (6-50); Alkaline Phosphatase 224 U/L (38-126); Anion Gap 10 mmol/L (4-12); Aspartate Amino Transferase 20 U/L (17-59); Bilirubin,Total 0.5 mg/dL (0.2-1.3); Blood Urea Nitrogen 21 mg/dL (9-20); Calcium 9.2 mg/dL (8.4-10.2); Carbon Dioxide 22 mmol/L (22-30); Chloride 102 mmol/L (98-107); Creatine Kinase 44 U/L (55-170); Estimated CRCL calculation 102 ml/min; Estimated Glomerular Filt Rate > 60; Glucose 144 mg/dL (65-110); Lipase 79 U/L (23-300); Magnesium 2.1 mg/dL (1.6-2.3); Potassium 4.3 mmol/L (3.4-5.0); Sodium 134 mmol/L (137-145)
[2025-03-05 22:58] LABS: NT Pro B Type Natriuretic Pept 2310 pg/mL (19.9-100); Troponin I 0.016 ng/mL (0.000-0.034)
[2025-03-05 23:00] VITALS: BP 143/92; PULSE 83; RESP 10; O2SAT 99
[2025-03-05 23:13] LABS: Alveolar/Arterial O2 Gradient 36.5 mmHg; Base Excess ABG 0.5 mEq/l (+/-2.0); Fractional Inspired Oxygen 21 %; HCO3 ABG 20.6 mEq/l (22.0-26.0); Oxygen Content ABG 14.1 %vol (16.0-22.0); Oxygen Saturation ABG 98.1 % (95.0-100.0); Oxyhemoglobin 97.2 % THb (90.0-100.0); PO2 ABG 88.6 mmHg (80.0-100.0); PO2 FiO2 Ratio Arterial Blood 4.22 %; Total Hemoglobin 10.2 g/dL (12.0-18.0)
[2025-03-05 23:16] LABS: pH ABG 7.617 (7.350-7.450)
[2025-03-05 23:17] LABS: Modified Allen's Test Pass; PCO2 ABG 20.6 mmHg (35.0-45.0); Site Drawn RIGHT RADIAL
[2025-03-06] VITALS (10 sets, daily range): BP systolic 139–156; BP diastolic 65–84; PULSE 86–97; RESP 12–18; TEMP 36.3–36.8; O2SAT 98–100; BMI 36.1
--- NOTE | 2025-03-06 00:39 | ED_ITS ---
HPI - General Adult General Chief complaint: Weakness Stated complaint: GENERALIZED WEAKNESS, SOB Time Seen by Provider: 03/05/25 21:11 History of Present Illness HPI narrative: Patient 5-year-old gentleman who presents emergency department with chief complaint of generalized weakness decreased urine output and shortness of breath. Patient was discharged on the 4th was diagnosed with a possible renal cell carcinoma at that time the patient states that he feels extremely weak and reports he has been more short of breath. Related Data Allergies Allergy/AdvReac Type Severity Reaction Status Date / Time Penicillins Allergy Intermediate Hives Verified 02/23/25 18:41 Review of Systems 2 Review of Systems: A 10 system review of systems was completed on the patient and is negative except for what is stated in the HPI. Nursing and ancillary documentation was reviewed. [facility] Past Medical History Medical History Diabetic polyneuropathy Diabetes Family History Family History Mother Diabetes mellitus Social History Social History Smoking status: Former smoker Smokeless tobacco user: chewing tobacco Alcohol intake: never Substance use: never Do You Feel Safe in your Home?: Yes Lack of Transportation: No Lack of Food: Never True Current Housing: I Have Housing Concerned About Future Housing: No Difficulty Paying Gas/Electric Bills: No Difficulty Paying for Meds: No Currently Unemployed: No Education: High School Diploma/GED Difficulty w/ Childcare or Family Care: No Spiritual care concerns: No Exam 2 Narrative: GENERAL: Well-appearing, well-nourished, and in no acute distress. HEAD: Normocephalic, atraumatic. EYES: PERRLA and EOMI. ENT: Nares clear, no rhinorrhea or epistaxis. Mucous membranes moist. NECK: Supple. CHEST: Clear to auscultation. No respiratory distress. HEART: Regular rate and rhythm. No murmur heard. Normal peripheral pulses. ABDOMEN: Soft, nontender, nondistended, normal active bowel sounds. EXTREMITIES: Normal range of motion. No edema. SKIN: Warm, dry, no rash. NEURO: No focal deficits. Alert and oriented x3. PSYCH: Normal mood and affect. Course Vital Signs Vital signs: Vital Signs Temperature 36.8 C 03/05/25 20:48 Pulse Rate 91 03/05/25 20:48 Respiratory Rate 14 03/05/25 20:48 Blood Pressure 140/95 H 03/05/25 20:48 Pulse Oximetry 100 03/05/25 20:48 Oxygen Delivery Room Air 03/05/25 20:48 Temperature 36.8 C 03/05/25 20:48 Pulse Rate 88 03/05/25 21:52 Respiratory Rate 13 03/05/25 21:52 Blood Pressure 134/86 03/05/25 21:52 Pulse Oximetry 100 03/05/25 21:52 Oxygen Delivery Room Air 03/05/25 20:48 Medical Decision Making Vital Signs Vital Signs: Vital Signs Temperature 36.8 C 03/05/25 20:48 Pulse Rate 91 03/05/25 20:48 Respiratory Rate 14 03/05/25 20:48 Blood Pressure 140/95 H 03/05/25 20:48 Pulse Oximetry 100 03/05/25 20:48 Oxygen Delivery Room Air 03/05/25 20:48 Temperature 36.8 C 03/05/25 20:48 Pulse Rate 88 03/05/25 21:52 Respiratory Rate 13 03/05/25 21:52 Blood Pressure 134/86 03/05/25 21:52 Pulse Oximetry 100 03/05/25 21:52 Oxygen Delivery Room Air 03/05/25 20:48 Lab Data 03/05/25 21:36 03/05/25 21:36 Labs: Lab Results 03/05/25 03/05/25 03/05/25 Range/Units 21:36 21:36 21:36 WBC 7.0 (4.5-10.0) K/mm3 RBC 3.72 L (4.6-6.20) M/mm3 Hgb 9.2 L (14.0-18.0) g/dL Hct 28.9 L (42.0-52.0) % MCV 77.7 L (80-100) fl MCH 24.7 L (26-34) pg MCHC 31.8 L (32-36) g/dl RDW 14.2 (11.5-14.5) % Plt Count 372 (150-375) k/mm3 MPV 9.0 (7.4-10.4) fl Immature Gran % (Auto) 0.3 (0-0.5) % Neut % (Auto) 60.8 (45.5-73.1) % Lymph % (Auto) 27.9 (18.3-44.2) % [place] % (Auto) 9.6 H (2.6-8.5) % Eos % (Auto) 0.7 (0-4.4) % Baso % (Auto) 0.7 (0.2-1.2) % Lymph # (Auto) 1.95 (0.9-3.2) K/mm3 [place] # (Auto) 0.7 H (0.1-0.6) K/mm3 Eos # (Auto) 0.1 (0-0.3) K/mm3 Baso # (Auto) 0.1 (0.0-0.1) K/mm3 Abs Immat Gran (auto) 0.02 (0.00-0.031) K/mm3 Absolute Neuts (auto) 4.3 (1.3-6.7) K/mm3 Absolute Nucleated RBC 0.000 (0.0-0.012) K/mm3 Nucleated RBC % 0.0 (0.0-0.2) % PT 15.5 H (11.1-14.7) Seconds INR 1.2 APTT 33.7 (22.3-36.8) Seconds Sodium 133 L 134 L (137-145) mmol/L Potassium 4.1 4.3 (3.4-5.0) mmol/L Chloride 100 (98-107) mmol/L Carbon Dioxide (22-30) mmol/L Anion Gap (4-12) mmol/L BUN (9-20) mg/dL Creatinine (0.7-1.3) mg/dL Estim Creat Clear Calc ml/min Estimated GFR (59 - ) Glucose (65-110) mg/dL Lactic Acid (0.7-2.0) mmol/L Calcium (8.4-10.2) mg/dL Magnesium (1.6-2.3) mg/dL Total Bilirubin (0.2-1.3) mg/dL AST (17-59) U/L ALT (6-50) U/L Alkaline Phosphatase (38-126) U/L Total Creatine Kinase (55-170) U/L Troponin I (0.000-0.034) ng/mL NT-Pro-B Natriuret Pep (19.9-100) pg/mL Total Protein (6.3-8.2) g/dL Albumin (3.5-5.1) g/dL Lipase (23-300) U/L Procalcitonin ng/mL Urine Color (Yellow) Urine Appearance (Clear) Urine pH (5.0-9.0) Ur Specific [place] (1.001-1.035) Urine Protein (Negative) mg/dL Urine Glucose (UA) (Negative) mg/dL Urine Ketones (Negative) mg/dL Ur Blood (Man) (Negative) Urine Nitrate (Negative) Urine Bilirubin (Negative) Urine Urobilinogen (<2.0) mg/dL Add Ur Microanalysis Leukocyte Esterase Rfl (Negative) ESAU/UL Urine RBC (0-2) /hpf Urine WBC (0-3) /hpf Ur Squamous Epith Cells (Few) /hpf Urine Bacteria /hpf Urine Casts Influenza A (RT-PCR) (Negative) Influenza B (RT-PCR) (Negative) RSV (RT-PCR) (Negative) SARS-CoV-2 RNA (RT-PCR) (Negative) 03/05/25 03/05/25 03/05/25 Range/Units 21:36 21:36 21:36 WBC (4.5-10.0) K/mm3 RBC (4.6-6.20) M/mm3 Hgb (14.0-18.0) g/dL Hct (42.0-52.0) % MCV (80-100) fl MCH (26-34) pg MCHC (32-36) g/dl RDW (11.5-14.5) % Plt Count (150-375) k/mm3 MPV (7.4-10.4) fl Immature Gran % (Auto) (0-0.5) % Neut % (Auto) (45.5-73.1) % Lymph % (Auto) (18.3-44.2) % [place] % (Auto) (2.6-8.5) % Eos % (Auto) (0-4.4) % Baso % (Auto) (0.2-1.2) % Lymph # (Auto) (0.9-3.2) K/mm3 [place] # (Auto) (0.1-0.6) K/mm3 Eos # (Auto) (0-0.3) K/mm3 Baso # (Auto) (0.0-0.1) K/mm3 Abs Immat Gran (auto) (0.00-0.031) K/mm3 Absolute Neuts (auto) (1.3-6.7) K/mm3 Absolute Nucleated RBC (0.0-0.012) K/mm3 Nucleated RBC % (0.0-0.2) % PT (11.1-14.7) Seconds INR APTT (22.3-36.8) Seconds Sodium (137-145) mmol/L Potassium (3.4-5.0) mmol/L Chloride 102 (98-107) mmol/L Carbon Dioxide 24 22 (22-30) mmol/L Anion Gap 9 10 (4-12) mmol/L BUN 21 H (9-20) mg/dL Creatinine (0.7-1.3) mg/dL Estim Creat Clear Calc ml/min Estimated GFR (59 - ) Glucose (65-110) mg/dL Lactic Acid (0.7-2.0) mmol/L Calcium (8.4-10.2) mg/dL Magnesium (1.6-2.3) mg/dL Total Bilirubin (0.2-1.3) mg/dL AST (17-59) U/L ALT (6-50) U/L Alkaline Phosphatase (38-126) U/L Total Creatine Kinase (55-170) U/L Troponin I (0.000-0.034) ng/mL NT-Pro-B Natriuret Pep (19.9-100) pg/mL Total Protein (6.3-8.2) g/dL Albumin (3.5-5.1) g/dL Lipase (23-300) U/L Procalcitonin ng/mL Urine Color (Yellow) Urine Appearance (Clear) Urine pH (5.0-9.0) Ur Specific [place] (1.001-1.035) Urine Protein (Negative) mg/dL Urine Glucose (UA) (Negative) mg/dL Urine Ketones (Negative) mg/dL Ur Blood (Man) (Negative) Urine Nitrate (Negative) Urine Bilirubin (Negative) Urine Urobilinogen (<2.0) mg/dL Add Ur Microanalysis Leukocyte Esterase Rfl (Negative) ESAU/UL Urine RBC (0-2) /hpf Urine WBC (0-3) /hpf Ur Squamous Epith Cells (Few) /hpf Urine Bacteria /hpf Urine Casts Influenza A (RT-PCR) (Negative) Influenza B (RT-PCR) (Negative) RSV (RT-PCR) (Negative) SARS-CoV-2 RNA (RT-PCR) (Negative) 03/05/25 03/05/25 03/05/25 Range/Units 21:36 21:36 21:36 WBC (4.5-10.0) K/mm3 RBC (4.6-6.20) M/mm3 Hgb (14.0-18.0) g/dL Hct (42.0-52.0) % MCV (80-100) fl MCH (26-34) pg MCHC (32-36) g/dl RDW (11.5-14.5) % Plt Count (150-375) k/mm3 MPV (7.4-10.4) fl Immature Gran % (Auto) (0-0.5) % Neut % (Auto) (45.5-73.1) % Lymph % (Auto) (18.3-44.2) % [place] % (Auto) (2.6-8.5) % Eos % (Auto) (0-4.4) % Baso % (Auto) (0.2-1.2) % Lymph # (Auto) (0.9-3.2) K/mm3 [place] # (Auto) (0.1-0.6) K/mm3 Eos # (Auto) (0-0.3) K/mm3 Baso # (Auto) (0.0-0.1) K/mm3 Abs Immat Gran (auto) (0.00-0.031) K/mm3 Absolute Neuts (auto) (1.3-6.7) K/mm3 Absolute Nucleated RBC (0.0-0.012) K/mm3 Nucleated RBC % (0.0-0.2) % PT (11.1-14.7) Seconds INR APTT (22.3-36.8) Seconds Sodium (137-145) mmol/L Potassium (3.4-5.0) mmol/L Chloride (98-107) mmol/L Carbon Dioxide (22-30) mmol/L Anion Gap (4-12) mmol/L BUN 21 H (9-20) mg/dL Creatinine 1.09 1.02 (0.7-1.3) mg/dL Estim Creat Clear Calc 96 102 ml/min Estimated GFR > 60 (59 - ) Glucose (65-110) mg/dL Lactic Acid (0.7-2.0) mmol/L Calcium (8.4-10.2) mg/dL Magnesium (1.6-2.3) mg/dL Total Bilirubin (0.2-1.3) mg/dL AST (17-59) U/L ALT (6-50) U/L Alkaline Phosphatase (38-126) U/L Total Creatine Kinase (55-170) U/L Troponin I (0.000-0.034) ng/mL NT-Pro-B Natriuret Pep (19.9-100) pg/mL Total Protein (6.3-8.2) g/dL Albumin (3.5-5.1) g/dL Lipase (23-300) U/L Procalcitonin ng/mL Urine Color (Yellow) Urine Appearance (Clear) Urine pH (5.0-9.0) Ur Specific [place] (1.001-1.035) Urine Protein (Negative) mg/dL Urine Glucose (UA) (Negative) mg/dL Urine Ketones (Negative) mg/dL Ur Blood (Man) (Negative) Urine Nitrate (Negative) Urine Bilirubin (Negative) Urine Urobilinogen (<2.0) mg/dL Add Ur Microanalysis Leukocyte Esterase Rfl (Negative) ESAU/UL Urine RBC (0-2) /hpf Urine WBC (0-3) /hpf Ur Squamous Epith Cells (Few) /hpf Urine Bacteria /hpf Urine Casts Influenza A (RT-PCR) (Negative) Influenza B (RT-PCR) (Negative) RSV (RT-PCR) (Negative) SARS-CoV-2 RNA (RT-PCR) (Negative) 03/05/25 03/05/25 03/05/25 Range/Units 21:36 21:36 21:36 WBC (4.5-10.0) K/mm3 RBC (4.6-6.20) M/mm3 Hgb (14.0-18.0) g/dL Hct (42.0-52.0) % MCV (80-100) fl MCH (26-34) pg MCHC (32-36) g/dl RDW (11.5-14.5) % Plt Count (150-375) k/mm3 MPV (7.4-10.4) fl Immature Gran % (Auto) (0-0.5) % Neut % (Auto) (45.5-73.1) % Lymph % (Auto) (18.3-44.2) % [place] % (Auto) (2.6-8.5) % Eos % (Auto) (0-4.4) % Baso % (Auto) (0.2-1.2) % Lymph # (Auto) (0.9-3.2) K/mm3 [place] # (Auto) (0.1-0.6) K/mm3 Eos # (Auto) (0-0.3) K/mm3 Baso # (Auto) (0.0-0.1) K/mm3 Abs Immat Gran (auto) (0.00-0.031) K/mm3 Absolute Neuts (auto) (1.3-6.7) K/mm3 Absolute Nucleated RBC (0.0-0.012) K/mm3 Nucleated RBC % (0.0-0.2) % PT (11.1-14.7) Seconds INR APTT (22.3-36.8) Seconds Sodium (137-145) mmol/L Potassium (3.4-5.0) mmol/L Chloride (98-107) mmol/L Carbon Dioxide (22-30) mmol/L Anion Gap (4-12) mmol/L BUN (9-20) mg/dL Creatinine (0.7-1.3) mg/dL Estim Creat Clear Calc ml/min Estimated GFR > 60 (59 - ) Glucose 143 H 144 H (65-110) mg/dL Lactic Acid 1.1 (0.7-2.0) mmol/L Calcium 9.3 9.2 (8.4-10.2) mg/dL Magnesium 2.1 (1.6-2.3) mg/dL Total Bilirubin 0.5 (0.2-1.3) mg/dL AST (17-59) U/L ALT (6-50) U/L Alkaline Phosphatase (38-126) U/L Total Creatine Kinase (55-170) U/L Troponin I (0.000-0.034) ng/mL NT-Pro-B Natriuret Pep (19.9-100) pg/mL Total Protein (6.3-8.2) g/dL Albumin (3.5-5.1) g/dL Lipase (23-300) U/L Procalcitonin ng/mL Urine Color (Yellow) Urine Appearance (Clear) Urine pH (5.0-9.0) Ur Specific [place] (1.001-1.035) Urine Protein (Negative) mg/dL Urine Glucose (UA) (Negative) mg/dL Urine Ketones (Negative) mg/dL Ur Blood (Man) (Negative) Urine Nitrate (Negative) Urine Bilirubin (Negative) Urine Urobilinogen (<2.0) mg/dL Add Ur Microanalysis Leukocyte Esterase Rfl (Negative) ESAU/UL Urine RBC (0-2) /hpf Urine WBC (0-3) /hpf Ur Squamous Epith Cells (Few) /hpf Urine Bacteria /hpf Urine Casts Influenza A (RT-PCR) (Negative) Influenza B (RT-PCR) (Negative) RSV (RT-PCR) (Negative) SARS-CoV-2 RNA (RT-PCR) (Negative) 03/05/25 03/05/25 03/05/25 Range/Units 21:36 21:36 21:36 WBC (4.5-10.0) K/mm3 RBC (4.6-6.20) M/mm3 Hgb (14.0-18.0) g/dL Hct (42.0-52.0) % MCV (80-100) fl MCH (26-34) pg MCHC (32-36) g/dl RDW (11.5-14.5) % Plt Count (150-375) k/mm3 MPV (7.4-10.4) fl Immature Gran % (Auto) (0-0.5) % Neut % (Auto) (45.5-73.1) % Lymph % (Auto) (18.3-44.2) % [place] % (Auto) (2.6-8.5) % Eos % (Auto) (0-4.4) % Baso % (Auto) (0.2-1.2) % Lymph # (Auto) (0.9-3.2) K/mm3 [place] # (Auto) (0.1-0.6) K/mm3 Eos # (Auto) (0-0.3) K/mm3 Baso # (Auto) (0.0-0.1) K/mm3 Abs Immat Gran (auto) (0.00-0.031) K/mm3 Absolute Neuts (auto) (1.3-6.7) K/mm3 Absolute Nucleated RBC (0.0-0.012) K/mm3 Nucleated RBC % (0.0-0.2) % PT (11.1-14.7) Seconds INR APTT (22.3-36.8) Seconds Sodium (137-145) mmol/L Potassium (3.4-5.0) mmol/L Chloride (98-107) mmol/L Carbon Dioxide (22-30) mmol/L Anion Gap (4-12) mmol/L BUN (9-20) mg/dL Creatinine (0.7-1.3) mg/dL Estim Creat Clear Calc ml/min Estimated GFR (59 - ) Glucose (65-110) mg/dL Lactic Acid (0.7-2.0) mmol/L Calcium (8.4-10.2) mg/dL Magnesium (1.6-2.3) mg/dL Total Bilirubin 0.5 (0.2-1.3) mg/dL AST 26 20 (17-59) U/L ALT 22 21 (6-50) U/L Alkaline Phosphatase 218 H (38-126) U/L Total Creatine Kinase (55-170) U/L Troponin I (0.000-0.034) ng/mL NT-Pro-B Natriuret Pep (19.9-100) pg/mL Total Protein (6.3-8.2) g/dL Albumin (3.5-5.1) g/dL Lipase (23-300) U/L Procalcitonin ng/mL Urine Color (Yellow) Urine Appearance (Clear) Urine pH (5.0-9.0) Ur Specific [place] (1.001-1.035) Urine Protein (Negative) mg/dL Urine Glucose (UA) (Negative) mg/dL Urine Ketones (Negative) mg/dL Ur Blood (Man) (Negative) Urine Nitrate (Negative) Urine Bilirubin (Negative) Urine Urobilinogen (<2.0) mg/dL Add Ur Microanalysis Leukocyte Esterase Rfl (Negative) ESAU/UL Urine RBC (0-2) /hpf Urine WBC (0-3) /hpf Ur Squamous Epith Cells (Few) /hpf Urine Bacteria /hpf Urine Casts Influenza A (RT-PCR) (Negative) Influenza B (RT-PCR) (Negative) RSV (RT-PCR) (Negative) SARS-CoV-2 RNA (RT-PCR) (Negative) 03/05/25 03/05/25 03/05/25 Range/Units 21:36 21:36 21:36 WBC (4.5-10.0) K/mm3 RBC (4.6-6.20) M/mm3 Hgb (14.0-18.0) g/dL Hct (42.0-52.0) % MCV (80-100) fl MCH (26-34) pg MCHC (32-36) g/dl RDW (11.5-14.5) % Plt Count (150-375) k/mm3 MPV (7.4-10.4) fl Immature Gran % (Auto) (0-0.5) % Neut % (Auto) (45.5-73.1) % Lymph % (Auto) (18.3-44.2) % [place] % (Auto) (2.6-8.5) % Eos % (Auto) (0-4.4) % Baso % (Auto) (0.2-1.2) % Lymph # (Auto) (0.9-3.2) K/mm3 [place] # (Auto) (0.1-0.6) K/mm3 Eos # (Auto) (0-0.3) K/mm3 Baso # (Auto) (0.0-0.1) K/mm3 Abs Immat Gran (auto) (0.00-0.031) K/mm3 Absolute Neuts (auto) (1.3-6.7) K/mm3 Absolute Nucleated RBC (0.0-0.012) K/mm3 Nucleated RBC % (0.0-0.2) % PT (11.1-14.7) Seconds INR APTT (22.3-36.8) Seconds Sodium (137-145) mmol/L Potassium (3.4-5.0) mmol/L Chloride (98-107) mmol/L Carbon Dioxide (22-30) mmol/L Anion Gap (4-12) mmol/L BUN (9-20) mg/dL Creatinine (0.7-1.3) mg/dL Estim Creat Clear Calc ml/min Estimated GFR (59 - ) Glucose (65-110) mg/dL Lactic Acid (0.7-2.0) mmol/L Calcium (8.4-10.2) mg/dL Magnesium (1.6-2.3) mg/dL Total Bilirubin (0.2-1.3) mg/dL AST (17-59) U/L ALT (6-50) U/L Alkaline Phosphatase 224 H (38-126) U/L Total Creatine Kinase 44 L (55-170) U/L Troponin I 0.016 Cancelled (0.000-0.034) ng/mL NT-Pro-B Natriuret Pep 2310 H (19.9-100) pg/mL Total Protein 7.0 6.0 L (6.3-8.2) g/dL Albumin 3.4 L (3.5-5.1) g/dL Lipase (23-300) U/L Procalcitonin ng/mL Urine Color (Yellow) Urine Appearance (Clear) Urine pH (5.0-9.0) Ur Specific [place] (1.001-1.035) Urine Protein (Negative) mg/dL Urine Glucose (UA) (Negative) mg/dL Urine Ketones (Negative) mg/dL Ur Blood (Man) (Negative) Urine Nitrate (Negative) Urine Bilirubin (Negative) Urine Urobilinogen (<2.0) mg/dL Add Ur Microanalysis Leukocyte Esterase Rfl (Negative) ESAU/UL Urine RBC (0-2) /hpf Urine WBC (0-3) /hpf Ur Squamous Epith Cells (Few) /hpf Urine Bacteria /hpf Urine Casts Influenza A (RT-PCR) (Negative) Influenza B (RT-PCR) (Negative) RSV (RT-PCR) (Negative) SARS-CoV-2 RNA (RT-PCR) (Negative) 03/05/25 03/05/25 Range/Units 21:36 21:44 WBC (4.5-10.0) K/mm3 RBC (4.6-6.20) M/mm3 Hgb (14.0-18.0) g/dL Hct (42.0-52.0) % MCV (80-100) fl MCH (26-34) pg MCHC (32-36) g/dl RDW (11.5-14.5) % Plt Count (150-375) k/mm3 MPV (7.4-10.4) fl Immature Gran % (Auto) (0-0.5) % Neut % (Auto) (45.5-73.1) % Lymph % (Auto) (18.3-44.2) % [place] % (Auto) (2.6-8.5) % Eos % (Auto) (0-4.4) % Baso % (Auto) (0.2-1.2) % Lymph # (Auto) (0.9-3.2) K/mm3 [place] # (Auto) (0.1-0.6) K/mm3 Eos # (Auto) (0-0.3) K/mm3 Baso # (Auto) (0.0-0.1) K/mm3 Abs Immat Gran (auto) (0.00-0.031) K/mm3 Absolute Neuts (auto) (1.3-6.7) K/mm3 Absolute Nucleated RBC (0.0-0.012) K/mm3 Nucleated RBC % (0.0-0.2) % PT (11.1-14.7) Seconds INR APTT (22.3-36.8) Seconds Sodium (137-145) mmol/L Potassium (3.4-5.0) mmol/L Chloride (98-107) mmol/L Carbon Dioxide (22-30) mmol/L Anion Gap (4-12) mmol/L BUN (9-20) mg/dL Creatinine (0.7-1.3) mg/dL Estim Creat Clear Calc ml/min Estimated GFR (59 - ) Glucose (65-110) mg/dL Lactic Acid (0.7-2.0) mmol/L Calcium (8.4-10.2) mg/dL Magnesium (1.6-2.3) mg/dL Total Bilirubin (0.2-1.3) mg/dL AST (17-59) U/L ALT (6-50) U/L Alkaline Phosphatase (38-126) U/L Total Creatine Kinase (55-170) U/L Troponin I (0.000-0.034) ng/mL NT-Pro-B Natriuret Pep (19.9-100) pg/mL Total Protein (6.3-8.2) g/dL Albumin 3.0 L (3.5-5.1) g/dL Lipase 79 (23-300) U/L Procalcitonin 0.3 ng/mL Urine Color Yellow (Yellow) Urine Appearance Clear (Clear) Urine pH 5.5 (5.0-9.0) Ur Specific [place] 1.012 (1.001-1.035) Urine Protein 3+ H (Negative) mg/dL Urine Glucose (UA) Trace H (Negative) mg/dL Urine Ketones Negative (Negative) mg/dL Ur Blood (Man) Negative (Negative) Urine Nitrate Negative (Negative) Urine Bilirubin Negative (Negative) Urine Urobilinogen 1.0 (<2.0) mg/dL Add Ur Microanalysis Reviewed Leukocyte Esterase Rfl Negative (Negative) ESAU/UL Urine RBC 0-2 (0-2) /hpf Urine WBC 0-5 (0-3) /hpf Ur Squamous Epith Cells None seen (Few) /hpf Urine Bacteria None seen /hpf Urine Casts 3-5 Influenza A (RT-PCR) Negative (Negative) Influenza B (RT-PCR) Negative (Negative) RSV (RT-PCR) Negative (Negative) SARS-CoV-2 RNA (RT-PCR) Negative (Negative) ABG Data ABG results: 03/05/25 23:00 Puncture Site Right radial ABG pH 7.617 H* ABG pCO2 20.6 L* ABG pO2 88.6 ABG PO2/FiO2 Ratio 4.22 ABG HCO3 20.6 L ABG O2 Saturation 98.1 ABG O2 Content 14.1 L ABG Base Excess 0.5 A-a Gradient 36.5 Oxyhemoglobin 97.2 Total Hemoglobin 10.2 L O2 Delivery Device Not Reportable O2 Liters/Min Not Reportable FiO2 21 Discharge Plan Discharge Clinical Impression: Dyspnea, Generalized weakness Patient Disposition: Still a Patient Condition: Stable Patient Language: Malian Prescriptions: No Action atorvastatin 20 mg Tablet 20 mg PO DAILY Qty: 30 0RF alprazolam 0.25 mg Tablet 0.25 mg PO TID PRN (Reason: Anxiety) Qty: 10 0RF ferrous sulfate 325 mg (65 mg iron) Tablet,Delayed Release (Dr/Ec) 325 mg PO BID Qty: 60 0RF gabapentin 100 mg Capsule 100 mg PO TID Qty: 90 0RF insulin glargine [Lantus Solostar U-100 Insulin] 100 unit/mL (3 mL) insulin pen 27 unit subcut HS Qty: 30 0RF losartan 25 mg Tablet 25 mg PO DAILY Qty: 30 0RF (DME) blood-glucose meter [Remote Assistantuch Verio Flex meter] Mis Qty: 1 0RF Rx Instructions: May substitute to in-stock meter and/or covered by insurance. Use As Directed (DME) Remote Assistantuch Verio test strips Strip Qty: 1 0RF Rx Instructions: May substitute to in-stock and/or covered by insurance strips. Use As Directed (DME) pen needle, diabetic 32 gauge x 5/32 Needle Qty: 1 0RF Rx Instructions: As Directed (DME) lancets [CrowdcastTouch Delica Plus Lancet] [facility]: [facility] 0RF Rx Instructions: May substitute to in-stock and/or covered by insurance lancets. Use As Directed (DME) insulin syringe,safety needle 0.5 mL 31 gauge x 5/16 Syringe Qty: 1 0RF Rx Instructions: As Directed oxycodone 10 mg tablet 10 mg PO Q6H PRN (Reason: pain) Qty: 20 0RF Follow-up/Referrals: UNKNOWN,DOCTOR [Primary Care Provider] - Time of Disposition: 01:28
--- NOTE | 2025-03-06 01:21 | ECG_ITS ---
Test Date: 2025-03-06 01:32:28 Measurements Intervals [place] Rate: 92 P: 46 MO: 172 QRS: 34 QRSD: 92 T: 52 QT: 385 QTc: 476 Interpretive Statements SINUS RHYTHM WITH OCCASIONAL VENTRICULAR PREMATURE COMPLEXES WITH OCCASIONAL SUPRAVENTRICULAR PREMATURE COMPLEXES BORDERLINE R WAVE PROGRESSION, ANTERIOR LEADS BORDERLINE ECG Compared to ECG 03/05/2025 20:59:42 ATRIAL AND VENTRICULAR PREMATURE COMPLEXES NOW PRESENT Electronically Signed On 03-06-2025 06:23:50 CDT by Александр Oates D.O.
--- NOTE | 2025-03-06 01:30 | PC.NURSE ---
Patient took blood pressure cuff off and refused to put it back on stating It hurts too bad. You all have had me here for 4 hours and it has not changed.
[2025-03-06 01:52] LABS: Troponin I 0.015 ng/mL (0.000-0.034)
--- NOTE | 2025-03-06 03:47 | ADMGEN ---
This patient, Fuad Claudio, was admitted to Medical Room 261-01. Patient/family oriented to hospital policies and general routines including ID bracelet, bed and alarms, visiting hours, pain management, procedures, bathroom and other care routines, personal items, smoking policy, room service/diet, and visiting hours. Information on how to activate the Rapid Response Team has been discussed. Patient/Family are encouraged to report perceived risks to care and to ask questions if they do not understand what they are told or what they should do.
[2025-03-06] MEDS: ACETAMINOPHEN 325 MG TABLET 650 MG PO (04:17)
[2025-03-06 10:42] LABS: Basophils Absolute Auto 0.1 K/mm3 (0.0-0.1); Basophils Percent Auto 0.6 % (0.2-1.2); Eosinophils Absolute Auto 0.1 K/mm3 (0-0.3); Eosinophils Percent Auto 1.1 % (0-4.4); Hemoglobin 8.6 g/dL (14.0-18.0); Immature Granulocyte Absolute 0.03 K/mm3 (0.00-0.031); Immature Granulocyte Percent A 0.4 % (0-0.5); Lymphocytes Absolute Auto 1.98 K/mm3 (0.9-3.2); Lymphocytes Percent Auto 25.3 % (18.3-44.2); Mean Corpuscular HGB Conc 31.9 g/dl (32-36); Mean Corpuscular Hemoglobin 25.1 pg (26-34); Mean Corpuscular Volume 78.9 fl (80-100); Monocytes Absolute Auto 0.8 K/mm3 (0.1-0.6); Neutrophils Absolute Auto 4.9 K/mm3 (1.3-6.7); Neutrophils Percent Auto 62.6 % (45.5-73.1); Platelet Count Result 413 k/mm3 (150-375); Red Blood Count 3.42 M/mm3 (4.6-6.20); Red Cell Distribution Width 14.4 % (11.5-14.5); White Blood Count 7.8 K/mm3 (4.5-10.0)
[2025-03-06 10:57] LABS: Alanine Aminotransferase 33 U/L (6-50); Albumin Level 3.4 g/dL (3.5-5.1); Alkaline Phosphatase 214 U/L (38-126); Anion Gap 11 mmol/L (4-12); Aspartate Amino Transferase 43 U/L (17-59); Bilirubin,Total 0.4 mg/dL (0.2-1.3); Blood Urea Nitrogen 24 mg/dL (9-20); Calcium 9.2 mg/dL (8.4-10.2); Carbon Dioxide 24 mmol/L (22-30); Chloride 99 mmol/L (98-107); Estimated CRCL calculation 77 ml/min; Estimated Glomerular Filt Rate 54; Glucose 183 mg/dL (65-110); Potassium 3.9 mmol/L (3.4-5.0); Sodium 134 mmol/L (137-145)
[2025-03-06] MEDS: FERROUS SULFATE 325 MG TABLET DR PO ×2 (11:10→16:18)
[2025-03-06] MEDS: ATORVASTATIN 20 MG TABLET PO (11:10)
[2025-03-06] MEDS: LOSARTAN POTASSIUM 25 MG TABLET PO (11:10)
[2025-03-06] MEDS: oxyCODONE HCL (*CRX) 5 MG TAB IR 10 MG PO ×2 (11:10→17:06)
--- NOTE | 2025-03-06 11:16 | P.HP_ITS ---
H&P: HPI History of Present Illness Date/Time: 03/06/25 11:16 Chief Complaint: Generalized weakness/BLE pain with weakness Narrative: Patient is a 55-year-old male 55 who presented to the emergency department with worsening bilateral lower extremity pain and weakness for the last week as well as just generalized weakness. patient was recently discharged on 02/27/2025 during that hospitalization patient's insulin was resumed after he had stopped taking it for over a year and found to have uncontrolled diabetes with neuropathy. he was also found to have a large right renal mass suspicious for renal carcinoma and was seen by Urology and Oncology was plan to follow up outpatient for either a radical nephrectomy. he did a CTA completed by Oncology which did show no signs of metastasis. Patient reports continued weakness and difficulty with mobility. Patient refused MRI for further evaluation. Complete work-up with neurology 7 days prior who recommended out EMG/NCV. 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 Initial findings emergency department showed anemia which patient chronic history hemoglobin stable at 9.2, other labs were unremarkable for due to his dyspnea a BNP was done which was elevated at 23 10 CXR did not show any concern for pulmonary congestion but did show cardiomegaly. Patient was admitted for further evaluation treatment of generalized weakness and dyspnea. Review of Systems Review of Systems: All systems reviewed & are unremarkable except as noted in HPI and below PMFSH Past Medical History Medical History Generalized weakness Renal mass, right Diabetic polyneuropathy Diabetes Family History Family History Mother Diabetes mellitus Social History Social History Smoking status: Former smoker Tobacco type: cigarettes Smokeless tobacco user: chewing tobacco Alcohol intake: former Substance use: never Substance use type: does not use Do You Feel Safe in your Home?: Yes Lack of Transportation: YES Lack of Food: Never True Current Housing: I Have Housing Concerned About Future Housing: YES Difficulty Paying Gas/Electric Bills: YES Difficulty Paying for Meds: YES Currently Unemployed: No Education: High School Diploma/GED Difficulty w/ Childcare or Family Care: No Spiritual care concerns: No Meds Home Medications and Allergies Home Medications ?Medication ?Instructions ?Recorded ?Confirmed ?Type alprazolam 0.25 mg tablet 0.25 mg PO TID PRN Anxiety #10 tabs 02/28/25 03/06/25 Rx atorvastatin 20 mg tablet 20 mg PO DAILY #30 tabs 02/28/25 03/06/25 [facility] 02/28/25 03/06/25 Rx Verio test strips) blood-glucose meter (OneTouch #1 pkg 02/28/25 03/06/25 Rx Verio Flex Meter) ferrous sulfate 325 mg (65 mg 325 mg PO BID #60 tabs 02/28/25 03/06/25 Rx iron) tablet,delayed release gabapentin 100 mg capsule 100 mg PO TID #90 caps 02/28/25 03/06/25 Rx insulin glargine 100 unit/mL (3 27 unit (0.27 mL) subcut HS #30 mL 02/28/25 03/06/25 Rx mL) subcutaneous pen (Lantus Solostar U-100 Insulin) insulin syringe,safety needle 0.5 #1 pkg 02/28/25 03/06/25 Rx mL 31 gauge x 5/16 lancets 30 gauge (OneTouch Delica #1 pkg 02/28/25 03/06/25 Rx Plus Lancet) losartan 25 mg tablet 25 mg PO DAILY #30 tabs 02/28/25 03/06/25 Rx oxycodone 10 mg tablet 10 mg PO Q6H PRN pain (scale score 02/28/25 03/06/25 Rx 7-10) #20 tabs pen needle, diabetic 32 gauge x #1 pkg 02/28/25 03/06/25 Rx 5/32 hydrocodone 5 mg-acetaminophen 325 1 tablet PO Q4H PRN pain (scale 03/06/25 03/06/25 History mg tablet score 4-6) Allergies Allergy/AdvReac Type Severity Reaction Status Date / Time Penicillins Allergy Intermediate Hives Verified 02/23/25 18:41 Vital Signs Vital Signs - 24 hr 03/05/25 20:48 03/05/25 20:55 03/05/25 21:52 Temperature 98.3 F Pulse Rate 91 88 88 Respiratory Rate 14 13 Blood Pressure 140/95 H 134/86 Pulse Oximetry 100 100 Oxygen Delivery Room Air 03/05/25 22:00 03/05/25 23:00 03/06/25 01:00 Temperature Pulse Rate 86 83 87 Respiratory Rate 10 L 10 L 12 Blood Pressure 154/95 H 143/92 H 145/84 H Pulse Oximetry 99 99 100 Oxygen Delivery 03/06/25 04:00 03/06/25 04:10 Temperature 97.5 F L Pulse Rate 94 93 Respiratory Rate 18 Blood Pressure 140/84 Pulse Oximetry 100 Oxygen Delivery Exam Const: General: comfortable and no acute distress Other: Pleasant male obese and appears older then stated age HENMT: Mouth: Yes moist mucous membranes Eyes: General: appearance normal, both eyes and all related structures Pupils: Equal, round and reactive pupils present Neck: Neck: supple and no JVD Resp: Effort & Inspection: normal respiratory effort Auscultation: clear to auscultation bilaterally Cardio: Rate: tachycardic Rhythm: regular rhythm GI: GI Palp: Yes Soft to palpation Auscultation: normal bowel sounds Other: Obese Neuro: General: gait normal Speech: normal speech Motor exam (neuro): Abnormal motor strength present (BLE) Sensory Exam: normal sensation Extrem: General: normal to inspection Psych: Mental Status: mental status grossly normal Affect: normal affect H&P: Results Labs Labs: Short CBC 03/05/25 03/06/25 Range/Units 21:36 10:30 WBC 7.0 7.8 (4.5-10.0) K/mm3 Hgb 9.2 L 8.6 L (14.0-18.0) g/dL Hct 28.9 L 27.0 L (42.0-52.0) % Plt Count 372 413 H (150-375) k/mm3 BMP 03/05/25 03/05/25 03/05/25 21:36 21:36 21:36 Sodium 133 L 134 L Potassium 4.1 4.3 Chloride 100 Carbon Dioxide BUN Creatinine Glucose Calcium 03/05/25 03/05/25 03/05/25 21:36 21:36 21:36 Sodium Potassium Chloride 102 Carbon Dioxide 24 22 BUN 21 H 21 H Creatinine 1.09 Glucose Calcium 03/05/25 03/05/25 03/05/25 21:36 21:36 21:36 Sodium Potassium Chloride Carbon Dioxide BUN Creatinine 1.02 Glucose 143 H 144 H Calcium 9.3 9.2 03/06/25 10:30 Sodium 134 L Potassium 3.9 Chloride 99 Carbon Dioxide 24 BUN 24 H Creatinine 1.37 H Glucose 183 H Calcium 9.2 Cardiac Enzymes 03/05/25 03/05/25 03/06/25 Range/Units 21:36 21:36 01:24 Total Creatine Kinase 44 L (55-170) U/L Troponin I 0.016 Cancelled 0.015 (0.000-0.034) ng/mL Liver Function 03/05/25 03/05/25 03/05/25 Range/Units 21:36 21:36 21:36 Total Bilirubin 0.5 0.5 (0.2-1.3) mg/dL AST 26 20 (17-59) U/L ALT 22 (6-50) U/L Alkaline Phosphatase (38-126) U/L Albumin (3.5-5.1) g/dL 03/05/25 03/05/25 03/05/25 Range/Units 21:36 21:36 21:36 Total Bilirubin (0.2-1.3) mg/dL AST (17-59) U/L ALT 21 (6-50) U/L Alkaline Phosphatase 218 H 224 H (38-126) U/L Albumin 3.4 L 3.0 L (3.5-5.1) g/dL 03/06/25 Range/Units 10:30 Total Bilirubin 0.4 (0.2-1.3) mg/dL AST 43 (17-59) U/L ALT 33 (6-50) U/L Alkaline Phosphatase 214 H (38-126) U/L Albumin 3.4 L (3.5-5.1) g/dL Urine 03/05/25 Range/Units 21:44 Urine Color Yellow (Yellow) Urine Appearance Clear (Clear) Urine pH 5.5 (5.0-9.0) Ur Specific [place] 1.012 (1.001-1.035) Urine Protein 3+ H (Negative) mg/dL Urine Glucose (UA) Trace H (Negative) mg/dL Imaging Chest x-ray: Radiologist's impression: EXAMINATION: XR chest 1V DATE: 02/23/2025 14:13 INDICATION: Cough and shortness of breath TECHNIQUE: AP view of the chest was obtained. COMPARISON: None FINDINGS: The lungs are clear with no focal airspace opacities, pulmonary edema, pleural effusion or pneumothorax. The cardiomediastinal silhouette is normal. IMPRESSION: 1. No acute cardiopulmonary disease. CT scan - head: Radiologist's impression: CTA brain carotid Ordering provider: Abraham Roberts History: . TIA . Progressive weakness Comparison: None Technique: CT angiogram head and neck was performed following timed intravenous injection of contrast. Thin slice axial images and reformatted coronal images were obtained. Three dimensional reformatted images of the brain were also obtained using a [employer] workstation. DLP: 2006.9 mGy-cm FINDINGS: HEAD: --ANTERIOR AND MIDDLE CEREBRAL ARTERIES AND BRANCHES: Normal caliber and contour. --INTERNAL CAROTID ARTERIES: Mild atheromatous disease (right greater than left) but no significant stenosis. No occlusion. --BASILAR ARTERY AND BRANCHES: Normal caliber and contour. No atheromatous disease. --POSTERIOR CEREBRAL ARTERIES: Normal caliber and contour --POSTERIOR COMMUNICATING ARTERIES: Not well visualized likely related to congenital absence or small size. --ANEURYSM: None visualized. --BRAIN: The ventricles are normal in size, shape and position. There is no mass, mass effect or midline shift. There is no abnormal extra-axial fluid collection or intracranial hemorrhage. 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 Remaining paranasal sinuses are unremarkable. The mastoid air cells are well aerated. No acute displaced fractures within the overlying cranium. NECK: --RIGHT CERVICAL CAROTID SYSTEM: Trace atheromatous disease of the carotid bulb and proximal internal carotid artery without significant stenosis. Percent stenosis per NASCET criteria is 6% No carotid dissection. --LEFT CERVICAL CAROTID SYSTEM: Mild soft appearing atheromatous disease of the carotid bulb and proximal internal carotid artery without significant stenosis. Percent stenosis per NASCET criteria is 9%. No carotid dissection. --VERTEBRAL ARTERIES: Calcified bilaterally at their origin, right greater than left. Otherwise normal caliber and contour. --VISUALIZED AORTIC ARCH AND BRANCHING VESSELS: Mild atheromatous disease but no significant stenosis. --SOFT TISSUES: Unremarkable --CERVICAL SPINE: Age appropriate degenerative changes. IMPRESSION: 1. Mild atherosclerotic disease detected bilaterally. Percent stenosis per NASCET criteria is 6% on the right (calcified) and 9% on the left (soft appearing). 2. No acute intracranial hemorrhage or suspicious mass effect. Assessment and Plan Assessment and plan (1) Cardiomegaly: Code(s): I51.7 - Cardiomegaly Status: Acute Assessment and Plan: patient readmitted for generalized weakness and shortness of breaths found to have an elevated BNP CXR showed no pulmonary congestion but did show cardiomegaly with minimal pericardial effusion. An echocardiogram has been ordered pending results. * continuous engine monitor at this time (2) Renal mass, right: Code(s): N28.89 - Other specified disorders of kidney and ureter Status: Acute Assessment and Plan: patient discharged on 02/27/2025 at which time he had seen Urology and Oncology for right large renal mass follow-up CT scan shows unchanged from previous admission it was discussed patient would need either a biopsy or nephrectomy per urology plan was outpatient procedures. * monitor renal function (3) Diabetes: Code(s): E11.9 - Type 2 diabetes mellitus without complications Status: Acute Assessment and Plan: * Accu-Cheks a.c. HS * sliding scale insulin * Started on 27 untis Lantus HS * A1C 11 * Diabetic diet * resomed losartan and atorvastatin * Watch for hypoglycemia/hypoglycemic protocol ordered (4) Diabetic polyneuropathy: Code(s): E11.42 - Type 2 diabetes mellitus with diabetic polyneuropathy Status: Acute Assessment and Plan: * resume patient's gabapentin (5) Microcytic anemia: Code(s): D50.9 - Iron deficiency anemia, unspecified Status: Acute Assessment and Plan: patient with microcytic iron deficiency anemia noted in followed up with iron panel * resume patient on ferrous sulfate p.o. b.i.d. * continue to monitor H&H * transfuse PRBCs if HGB <7.0 (6) Hypertension: Code(s): I10 - Essential (primary) hypertension Status: Acute Assessment and Plan: patient was hypertensive upon admission * started patient 25 mg losartan * monitor BP per unit protocol * and increase losartan if needed (7) Generalized weakness: Code(s): R53.1 - Weakness Status: Acute Assessment and Plan: Patient previous seen by Neurology recommended outpatient under conduction study attempted to do MRI however patient refusing. Patient states he had home health scheduled in for call. After speaking with patient he does not want to go to any rehab services * PT/OT Plan Code status: Full code per patient DVT prophylaxis: SCD Stress ulcer prophylaxis: Protonix 40 daily PT/OT notes: pending Disposition: patient was admitted to the medical unit for further evaluation treatment of generalized weakness and dyspnea with cardiomegaly echocardiogram pending. PT OT ordered however patient this time refusing to go to any rehab services in discharged home and have outpatient for his nerve conduction study as well as with Urology and Oncology once his insurance starts back up March 26. Quality VTE Prophylaxis VTE prophylaxis: mechanical ordered -Patient's previous records reviewed on admission -ER notes reviewed in detail on admission -discussed all findings and current treatment plan with patient/Family/POA -Consultations reviewed for recommendations -Patient's disposition for safe discharge discussed with bilingual patient support caseworker Dictation performed by [employer] direct speech recognition software, therefore dopeman variants and typographical errors may occur. Hospitalist MIPS Advance Care Plan I have confirmed that the patient's Advanced Care Plan is present, code status is documented, or surrogate decision maker is listed in patient medical record.: Yes Medication Reconciliation I have utilized all available resources to obtain, update and review the patients current medications (includes all prescriptions, OTC, herbals, cannabis, and nutritional supplements).: Yes The patient is not eligible for med reconciliation; the patient is in a emergent medical situation where delaying treatment would jeopardize the patients health.: No
[2025-03-06 12:16] LABS: Glucose Point of Care 160 mg/dl (65-105)
[2025-03-06] MEDS: GABAPENTIN 100 MG CAPSULE PO ×2 (14:17→16:18)
[2025-03-06] MEDS: ALPRAZolam (*CRX) 0.25 MG TABLET PO (16:18)
[2025-03-06 17:04] LABS: Glucose Point of Care 159 mg/dl (65-105)
[2025-03-06 20:48] LABS: Glucose Point of Care 156 mg/dl (65-105)
[2025-03-06] MEDS: INSULIN GLARGINE (*BKC) 100 UNITS/ML 27 UNITS SUB-Q (21:27)
[2025-03-07] VITALS (9 sets, daily range): BP systolic 106–145; BP diastolic 50–83; PULSE 82–94; RESP 16–20; TEMP 36.2–36.9; O2SAT 99–100
[2025-03-07] MEDS: oxyCODONE HCL (*CRX) 5 MG TAB IR 10 MG PO ×3 (00:25→20:10)
--- NOTE | 2025-03-07 06:00 | ECHO_ITS ---
Patient Info Name: Fuad Claudio Age: 55 years : 1970 Gender: Male Ht: 74 in Wt: 281 lbs BSA: 2.62 m2 HR: 82 bpm BP: 145 / 83 mmHg Heart Rhythm: Sinus Rhythm Technical Quality: Fair Exam Date: 03/07/2025 1:34 PM Exam Location: Echo Lab Patient Status: Inpatient Admit Date: 03/06/2025 Staff Ordering Physician: Alireza Scott MD Brake Operator: Sandra Priets RDCS Attending Provider: Kishore Steiner MD Referring Physician: Tyler HUYNH; Exam Type: CA echo doppler color flow Study Info Indications - Dyspnea, Cardiomegaly, Elevated BNP Complete two-dimensional, color flow and Doppler transthoracic echocardiogram is performed. Summary 1. Complete two-dimensional, color flow and Doppler transthoracic echocardiogram is performed. 2. There is a small sized pericardial effusion with no echocardiographic evidence of cardiac tamponade. 3. The left ventricle is mildly dilated with normal systolic function. There is severe eccentric left ventricular hypertrophy. The left ventricular ejection fraction is visually estimated to be 50-55%. Left Ventricle The left ventricle is mildly dilated with normal systolic function. There is severe eccentric left ventricular hypertrophy. The left ventricular ejection fraction is visually estimated to be 50-55%. Right Ventricle The right ventricle is normal in size and systolic function. Left Atria The left atrium is severely dilated. Right Atria The right atrium is dilated. Atrial Septum The atrial septum is not well visualized. Aortic Valve The aortic valve is probable trileaflet and opens well. There is no aortic regurgitation. Pulmonic Valve The pulmonic valve is not well visualized. There is no color Doppler evidence of pulmonic valve regurgitation. Mitral Valve The mitral valve is normal. There is mild mitral regurgitation. Tricuspid Valve The tricuspid valve is not well visualized. Pericardium/Pleural There is a small sized pericardial effusion with no echocardiographic evidence of cardiac tamponade. Inferior Vena Cava Normal inferior vena cava with >50% collapse upon inspiration consistent with normal right atrial pressure, 3 mmHg. Aorta The aortic root at the level of the sinus of Valsalva measures 3.9 cm in diameter. Left Ventricular Outflow Tract Name Value Normal LVOT 2D LVOT Diameter 2.1 cm LVOT Doppler LVOT Peak Gradient 5 mmHg LVOT Mean Gradient 3 mmHg LVOT VTI 22 cm LVOT VTI/AV VTI Ratio 0.8 LVOT Stroke Volume 73 ml LVOT CO 6.1 l/min LVOT CI 2.3 l/min/m2 Pulmonic Valve Name Value Normal RVOT Doppler RVOT Peak Gradient 3 mmHg PV Doppler PV Peak Gradient 5 mmHg Mitral Valve Name Value Normal MV Doppler MV Decel [place] 304 cm/s2 MV PHT 59 ms MV Area (PHT) 3.7 cm2 4.0-5.0 MV Diastolic Function MV E Peak Velocity 62 cm/s MV A Peak Velocity 67 cm/s MV E/A 0.9 MV Decel Time 205 ms MV Annular TDI MV E/e' (Septal) 17.0 <=8.0 MV E/e' (Lateral) 17.5 <=8.0 MV E/e' (Average) 17.2 Tricuspid Valve Name Value Normal TV Regurgitation Doppler TR Peak Velocity 253 cm/s TR Peak Gradient 26 mmHg Estimated PAP/RSVP RA Pressure 3 mmHg <=5 PA Systolic Pressure 29 mmHg <36 RV Systolic Pressure 29 mmHg <36 Aortic Valve Name Value Normal AV Doppler AV Peak Velocity 155 cm/s AV Peak Gradient 10 mmHg AV Mean Gradient 6 mmHg AV VTI 27 cm AV Area (Cont Eq VTI) 2.7 cm2 >=3.0 AV Area (Cont Eq Johnie) 2.5 cm2 AV Regurgitation 2D LVOT Area 3.3 cm2 Ventricles Name Value Normal LV Dimensions 2D/MM IVS Diastolic Thickness (2D) 1.3 cm 0.6-1.0 LVID Diastole (2D) 6.2 cm 4.2-5.8 LVIW Diastolic Thickness (2D) 1.3 cm 0.6-1.0 LVID Systole (2D) 4.2 cm 2.5-4.0 LVOT Diameter 2.1 cm LV Mass (2D Cubed) 363.78 g 88.00-224.00 LV Mass Index (2D Cubed) 139 g/m2 49-115 Relative Wall Thickness (2D) 0.41 LV Fractional Shortening/Ejection Fraction 2D/MM LV Fractional Shortening (2D) 33 % 25-43 LV EF (2D Teicholz) 60 % 52-72 LV Diastolic Volume (4C MOD) 237 ml LV EF (4C MOD) 68 % LV Diastolic Volume (2C MOD) 244 ml LV EF (2C MOD) 66 % LV Diastolic Volume (BP MOD) 241 ml 62-150 LV Diastolic Volume Index (BP MOD) 92 ml/m2 34-74 LV Systolic Volume (BP MOD) 78 ml 21-61 LV Systolic Volume Index (BP MOD) 30 ml/m2 11-31 LV EF (BP MOD) 68 % 52-72 LV Diastolic Length (4C) 9.7 cm LV Systolic Length (4C) 8.0 cm LV Stroke Volume (4C MOD) 162 ml Atria Name Value Normal LA Dimensions LA Volume (4C A-L) 165 ml LA Volume (BP A-L) 159 ml RA Dimensions RA Area (4C) 25.0 cm2 <=18.0 Report Signatures
[2025-03-07 06:26] LABS: Basophils Absolute Auto 0.1 K/mm3 (0.0-0.1); Basophils Percent Auto 0.9 % (0.2-1.2); Eosinophils Absolute Auto 0.1 K/mm3 (0-0.3); Eosinophils Percent Auto 1.8 % (0-4.4); Hematocrit 29.9 % (42.0-52.0); Hemoglobin 9.3 g/dL (14.0-18.0); Immature Granulocyte Absolute 0.04 K/mm3 (0.00-0.031); Immature Granulocyte Percent A 0.6 % (0-0.5); Lymphocytes Absolute Auto 1.93 K/mm3 (0.9-3.2); Lymphocytes Percent Auto 28.8 % (18.3-44.2); Mean Corpuscular HGB Conc 31.1 g/dl (32-36); Mean Corpuscular Hemoglobin 24.7 pg (26-34); Mean Corpuscular Volume 79.5 fl (80-100); Mean Platelet Volume 9.2 fl (7.4-10.4); Monocytes Absolute Auto 0.9 K/mm3 (0.1-0.6); Monocytes Percent Auto 12.7 % (2.6-8.5); Neutrophils Absolute Auto 3.7 K/mm3 (1.3-6.7); Neutrophils Percent Auto 55.2 % (45.5-73.1); Platelet Count Result 355 k/mm3 (150-375); Red Blood Count 3.76 M/mm3 (4.6-6.20); Red Cell Distribution Width 14.4 % (11.5-14.5); White Blood Count 6.7 K/mm3 (4.5-10.0)
[2025-03-07 06:42] LABS: Alanine Aminotransferase 36 U/L (6-50); Albumin Level 3.2 g/dL (3.5-5.1); Alkaline Phosphatase 190 U/L (38-126); Anion Gap 9 mmol/L (4-12); Aspartate Amino Transferase 34 U/L (17-59); Bilirubin,Total 0.3 mg/dL (0.2-1.3); Blood Urea Nitrogen 24 mg/dL (9-20); Calcium 9.1 mg/dL (8.4-10.2); Carbon Dioxide 25 mmol/L (22-30); Chloride 100 mmol/L (98-107); Estimated CRCL calculation 86 ml/min; Estimated Glomerular Filt Rate > 60; Glucose 134 mg/dL (65-110); Sodium 134 mmol/L (137-145)
[2025-03-07] MEDS: LOSARTAN POTASSIUM 25 MG TABLET PO (08:04)
[2025-03-07] MEDS: FERROUS SULFATE 325 MG TABLET DR PO ×2 (08:04→18:00)
[2025-03-07] MEDS: ATORVASTATIN 20 MG TABLET PO (08:04)
[2025-03-07] MEDS: GABAPENTIN 100 MG CAPSULE PO ×3 (08:13→18:00)
[2025-03-07 08:14] LABS: Glucose Point of Care 128 mg/dl (65-105)
--- NOTE | 2025-03-07 11:47 | PCOTNOTE ---
Occupational therapy attempted initial evaluation with patient initially agreeable, however, as questions progressed patient refused to engage further in evaluation outside of prior level of function intake. Patient noted increased shoulder pain and that due to that he will not be doing a f-ing thing further than laying in bed as it only makes it worse. RN aware of refusal.
[2025-03-07 12:09] LABS: Glucose Point of Care 132 mg/dl (65-105)
[2025-03-07] MEDS: HYDROcodone/acetaminophen (*CRX) 5-325 MG TABLET 1 TAB PO (12:32)
[2025-03-07] MEDS: KETOROLAC 30 MG/ML VIAL (*BKC) IV PUSH (12:32)
--- NOTE | 2025-03-07 12:40 | PC.NURSE ---
pt taken down for CT
--- NOTE | 2025-03-07 13:12 | PC.NURSE ---
pt returned from CT to room 261
--- NOTE | 2025-03-07 14:32 | P.PNIM_ITS ---
Progress Note: A&P Assessment and Plan (1) Shoulder pain, right: Code(s): M25.511 - Pain in right shoulder Status: Acute Assessment and Plan: Patient on previous admission complained left shoulder pain at which time a CT was completed showing moderate left glenohumeral osteoarthritis with high-grade chondromalacia along superior to posterior glenoid and the left supra spent at this and infraspinatus calcific tendinitis now patient presenting with severe right-sided shoulder pain unable to perform his daily activities tearful with limited range of motion. CT shoulder showing severe osteoarthritis. Resume patient's pain medication and gave a dose of Toradol for inflammation * Orthopedics consulted for any further recommendations will likely need further follow-up outpatient * Sling to arm * PT/OT (2) Cardiomegaly: Code(s): I51.7 - Cardiomegaly Status: Acute Assessment and Plan: patient readmitted for generalized weakness and shortness of breaths found to have an elevated BNP CXR showed no pulmonary congestion but did show cardiomegaly with minimal pericardial effusion. An echocardiogram has been ordered pending results. * continuous residential monitor at this time (3) Renal mass, right: Code(s): N28.89 - Other specified disorders of kidney and ureter Status: Acute Assessment and Plan: patient discharged on 02/27/2025 at which time he had seen Urology and Oncology for right large renal mass follow-up CT scan shows unchanged from previous admission it was discussed patient would need either a biopsy or nephrectomy per urology plan was outpatient procedures. will need to call to schedule outpatient * monitor renal function (4) Diabetes: Code(s): E11.9 - Type 2 diabetes mellitus without complications Status: Acute Assessment and Plan: * Accu-Cheks a.cJany HS * sliding scale insulin * Started on 27 untis Lantus HS * A1C 11 * Diabetic diet * resomed losartan and atorvastatin * Watch for hypoglycemia/hypoglycemic protocol ordered (5) Diabetic polyneuropathy: Code(s): E11.42 - Type 2 diabetes mellitus with diabetic polyneuropathy Status: Acute Assessment and Plan: * resume patient's gabapentin (6) Microcytic anemia: Code(s): D50.9 - Iron deficiency anemia, unspecified Status: Acute Assessment and Plan: patient with microcytic iron deficiency anemia noted in followed up with iron panel * resume patient on ferrous sulfate p.o. b.i.d. * continue to monitor H&H * transfuse PRBCs if HGB <7.0 (7) Hypertension: Code(s): I10 - Essential (primary) hypertension Status: Acute Assessment and Plan: patient was hypertensive upon admission * started patient 25 mg losartan * monitor BP per unit protocol * and increase losartan if needed (8) Generalized weakness: Code(s): R53.1 - Weakness Status: Acute Assessment and Plan: Patient previous seen by Neurology recommended outpatient under conduction study attempted to do MRI however patient refusing. Patient states he had home health scheduled in for call. After speaking with patient he does not want to go to any rehab services * PT/OT Plan Code status: Full code per patient DVT prophylaxis: SCD Stress ulcer prophylaxis: Protonix 40 daily PT/OT notes: pending Disposition: patient was admitted to the medical unit for further evaluation treatment of generalized weakness and dyspnea with cardiomegaly echocardiogram pending. PT OT ordered however patient this time refusing to go to any rehab services for discharge but did have home health set up. He was informed on previous hospitalization and this one that it is recommended to have a nerve conduction study done, as well as Follow-up with Urology and Oncology once his insurance starts back up March 26. Time Spent With Patient Time with patient: 15 - 25 minutes Subjective Date/time seen: 03/07/25 14:32 Interval history: Patient is a 55 year old male admitted for further evaluation increased generalized weakness who was just recently discharged on the 4th found to possible renal cell carcinoma with mass that will need to be removed. 03/07/2025: Patient reports severe pain to right shoulder unrelieved with pain medication CT shoulder pending will consult Ortho. Patient states he is unable to move his arm without severe pain upon assessment the continues to moan and is tearful with any activity. Reports mild SOB but denies chest pain. Patient refusing to work with PT/OT states the pain is too bad. Review of Systems Review of Systems: All systems reviewed & are unremarkable except as noted in HPI and below Exam Const: General: comfortable and no acute distress Other: Pleasant male obese and appears older then stated age HENMT: Mouth: Yes moist mucous membranes Eyes: General: appearance normal, both eyes and all related structures Pupils: Equal, round and reactive pupils present Neck: Neck: supple and no JVD Resp: Effort & Inspection: normal respiratory effort Auscultation: clear to auscultation bilaterally Cardio: Rate: tachycardic Rhythm: regular rhythm GI: Auscultation: normal bowel sounds Other: Obese Neuro: General: gait normal Cranial nerves: Yes Equal, round and reactive pupils present Speech: normal speech Motor exam (neuro): Abnormal motor strength present (BLE) Sensory Exam: normal sensation Extrem: General: normal to inspection Psych: Mental Status: mental status grossly normal Affect: normal affect Objective Data Vital Signs Vital Signs: Vital Signs - 24 hr 03/06/25 16:00 03/06/25 20:00 03/06/25 20:50 Temperature 98.2 F Pulse Rate 96 94 97 Respiratory Rate 18 Blood Pressure 156/77 H Pulse Oximetry 98 Oxygen Delivery 03/06/25 21:21 03/07/25 00:00 03/07/25 04:00 Temperature Pulse Rate 93 94 Respiratory Rate Blood Pressure Pulse Oximetry Oxygen Delivery Room Air 03/07/25 05:28 03/07/25 08:00 03/07/25 08:10 Temperature 97.8 F Pulse Rate 82 89 Respiratory Rate 17 Blood Pressure 145/83 H Pulse Oximetry 100 Oxygen Delivery Room Air 03/07/25 12:00 03/07/25 14:00 Temperature 97.1 F L Pulse Rate 93 90 Respiratory Rate 16 Blood Pressure 106/61 Pulse Oximetry 99 Oxygen Delivery Intake/Output Intake/Output: Intake & Output 03/04/25 03/05/25 03/06/25 03/07/25 23:59 23:59 23:59 23:59 Intake Total 830 750 Output Total 900 1100 Balance -70 -350 Meds/Results Medications: Active Medications Generic Name Dose Route Start Last Admin Trade Name Freq PRN Reason Stop Dose Admin Acetaminophen 650 mg 03/06/25 01:29 03/06/25 04:17 Acetaminophen 325 Mg Tablet PO 650 mg Q4H PRN Administration Mild Pain (1-3) or Fever Hydrocodone Bitart/Acetaminophen 1 tab 03/06/25 10:15 03/07/25 12:32 Hydrocodone/Acetaminophen (*Crx) 5-325 Mg Tablet PO 1 tab Q4H PRN Administration pain (scale score 4-6) Alprazolam 0.25 mg 03/06/25 10:15 03/06/25 16:18 Alprazolam (*Crx) 0.25 Mg Tablet PO 0.25 mg TID PRN Administration Anxiety Atorvastatin Calcium 20 mg 03/06/25 10:30 03/07/25 08:04 Atorvastatin 20 Mg Tablet PO 20 mg DAILY SHIRA Administration Dextrose 12.5 gm 03/06/25 10:21 Dextrose 50% 25 Gm/50 Ml Syringe IV PUSH PRN PRN Hypoglycemia Protocol Ferrous Sulfate 325 mg 03/06/25 10:30 03/07/25 08:04 Ferrous Sulfate [address] PO 325 mg BIDWM SHIRA Administration Gabapentin 100 mg 03/06/25 13:00 03/07/25 12:32 Gabapentin 100 Mg Capsule PO 100 mg TID SHIRA Administration Glucagon 1 mg 03/06/25 10:21 Glucagon For Inj 1 Mg Vial IM PRN PRN Hypoglycemia Protocol Glucose 15 gm 03/06/25 10:21 Glucose Oral Gel 15 Gm Of Glucse In 37.5 Gm Tube PO PRN PRN Hypoglycemia Protocol Dextrose 1,000 mls @ 100 mls/hr 03/06/25 10:21 Dextrose 5% 1,000 Ml IVPB PRN PRN Hypoglycemia Protocol Insulin Aspart 2 - 5 units 03/06/25 12:00 03/07/25 12:21 Insulin Aspart (*Bkc) 100 Units/Ml SUB-Q Not Given TIDWM SHIRA Protocol Insulin Glargine 27 units 03/06/25 21:00 03/06/25 21:27 Insulin Glargine (*Bkc) 100 Units/Ml SUB-Q 27 units HS SHIRA Administration Losartan Potassium 25 mg 03/06/25 10:30 03/07/25 08:04 Losartan Potassium 25 Mg Tablet PO 25 mg DAILY SHIRA Administration Ondansetron HCl 4 mg 03/06/25 01:29 Ondansetron Inj 4 Mg/2 Ml Vial IV PUSH Q4H PRN Nausea Oxycodone HCl 10 mg 03/06/25 10:15 03/07/25 08:04 Oxycodone Hcl (*Crx) 5 Mg Tab Ir PO 10 mg Q6H PRN Administration pain (scale score 7-10) Perflutren Lipid Microsphere 0 ml 03/06/25 01:29 Perflutren Lipid Microspheres 1.5 Ml Vial Diluted To 10 Ml Total Volume IV PUSH 03/09/25 01:30 ONCE PRN adequate visualization Protocol Polyethylene Glycol 17 gm 03/07/25 10:52 Polyethylene Glycol 3350 17 Gm Powd.Pack PO QAM PRN Constipation Radiology Results: ITS Impressions Chest X-Ray 03/05/25 21:25 IMPRESSION: Interstitial changes which may indicate edema versus pneumonitis. Clinical correlation and follow-up advised. Head CT 03/05/25 22:39 IMPRESSION: No acute intracranial findings. Chest/Abdomen/Pelvis CTA 03/05/25 23:41 IMPRESSION: CHEST: 1. No pulmonary embolism. 2. No acute cardiopulmonary pathology. 3. Cardiomegaly with minimal pericardial effusion. ABDOMEN/PELVIS: 1. Right renal mass unchanged from previous examination. 2. Hepatomegaly 3. No evidence of appendicitis, diverticulitis or intestinal obstruction. 4. Small para-aortic lymph nodes with the largest measuring 1.[address] 03/07/25 13:17 IMPRESSION: 1. No fracture. 2. Mild to moderate osteoarthritis. Labs Labs: Laboratory Results - last 24 hr 03/06/25 03/06/25 03/07/25 16:55 20:37 05:58 WBC 6.7 RBC 3.76 L Hgb 9.3 L Hct 29.9 L MCV 79.5 L MCH 24.7 L MCHC 31.1 L RDW 14.4 Plt Count 355 MPV 9.2 Immature Gran % (Auto) 0.6 H Neut % (Auto) 55.2 Lymph % (Auto) 28.8 [place] % (Auto) 12.7 H Eos % (Auto) 1.8 Baso % (Auto) 0.9 Lymph # (Auto) 1.93 [place] # (Auto) 0.9 H Eos # (Auto) 0.1 Baso # (Auto) 0.1 Abs Immat Gran (auto) 0.04 H Absolute Neuts (auto) 3.7 Absolute Nucleated RBC 0.000 Nucleated RBC % 0.0 Sodium 134 L Potassium 4.0 Chloride 100 Carbon Dioxide 25 Anion Gap 9 BUN 24 H Creatinine 1.22 Estim Creat Clear Calc 86 Estimated GFR > 60 Glucose 134 H POC Capillary Glucose 159 H 156 H Calcium 9.1 Total Bilirubin 0.3 AST 34 ALT 36 Alkaline Phosphatase 190 H Total Protein 7.0 Albumin 3.2 L 03/07/25 03/07/25 08:11 12:00 WBC RBC Hgb Hct MCV MCH MCHC RDW Plt Count MPV Immature Gran % (Auto) Neut % (Auto) Lymph % (Auto) [place] % (Auto) Eos % (Auto) Baso % (Auto) Lymph # (Auto) [place] # (Auto) Eos # (Auto) Baso # (Auto) Abs Immat Gran (auto) Absolute Neuts (auto) Absolute Nucleated RBC Nucleated RBC % Sodium Potassium Chloride Carbon Dioxide Anion Gap BUN Creatinine Estim Creat Clear Calc Estimated GFR Glucose POC Capillary Glucose 128 H 132 H Calcium Total Bilirubin AST ALT Alkaline Phosphatase Total Protein Albumin Quality VTE Prophylaxis VTE prophylaxis: mechanical ordered -Patient's previous records reviewed on admission -ER notes reviewed in detail on admission -discussed all findings and current treatment plan with patient/Family/POA -Consultations reviewed for recommendations -Patient's disposition for safe discharge discussed with wrapper caser Dictation performed by [employer] direct speech recognition software, therefore contract runner variants and typographical errors may occur. Hospitalist MIPS Advance Care Plan I have confirmed that the patient's Advanced Care Plan is present, code status is documented, or surrogate decision maker is listed in patient medical record.: Yes Medication Reconciliation I have utilized all available resources to obtain, update and review the patients current medications (includes all prescriptions, OTC, herbals, cannabis, and nutritional supplements).: Yes The patient is not eligible for med reconciliation; the patient is in a emergent medical situation where delaying treatment would jeopardize the patients health.: No
[2025-03-07 17:20] LABS: Glucose Point of Care 206 mg/dl (65-105)
[2025-03-07] MEDS: INSULIN ASPART (*BKC) 100 UNITS/ML SUB-Q (18:00)
[2025-03-07] MEDS: polyethylene glycoL 3350 17 GM POWD.PACK PO (18:00)
[2025-03-07 20:55] LABS: Glucose Point of Care 171 mg/dl (65-105)
[2025-03-07] MEDS: INSULIN GLARGINE (*BKC) 100 UNITS/ML 27 UNITS SUB-Q (21:01)
[2025-03-08] VITALS: PULSE 85
[2025-03-08] MEDS: oxyCODONE HCL (*CRX) 5 MG TAB IR 10 MG PO (03:12)
[2025-03-08 04:00] VITALS: PULSE 86
[2025-03-08 05:37] VITALS: BP 168/79; PULSE 84; RESP 16; TEMP 37; O2SAT 98
[2025-03-08 06:12] LABS: Basophils Percent Auto 0.6 % (0.2-1.2); Eosinophils Absolute Auto 0.1 K/mm3 (0-0.3); Eosinophils Percent Auto 1.7 % (0-4.4); Hematocrit 29.6 % (42.0-52.0); Hemoglobin 9.1 g/dL (14.0-18.0); Immature Granulocyte Absolute 0.03 K/mm3 (0.00-0.031); Immature Granulocyte Percent A 0.5 % (0-0.5); Lymphocytes Percent Auto 30.5 % (18.3-44.2); Mean Corpuscular HGB Conc 30.7 g/dl (32-36); Mean Corpuscular Hemoglobin 24.5 pg (26-34); Mean Corpuscular Volume 79.8 fl (80-100); Mean Platelet Volume 9.4 fl (7.4-10.4); Monocytes Absolute Auto 0.7 K/mm3 (0.1-0.6); Monocytes Percent Auto 10.5 % (2.6-8.5); Neutrophils Absolute Auto 3.7 K/mm3 (1.3-6.7); Neutrophils Percent Auto 56.2 % (45.5-73.1); Platelet Count Result 374 k/mm3 (150-375); Red Blood Count 3.71 M/mm3 (4.6-6.20); Red Cell Distribution Width 14.4 % (11.5-14.5); White Blood Count 6.6 K/mm3 (4.5-10.0)
[2025-03-08 06:22] LABS: Alanine Aminotransferase 44 U/L (6-50); Albumin Level 3.2 g/dL (3.5-5.1); Alkaline Phosphatase 194 U/L (38-126); Anion Gap 11 mmol/L (4-12); Aspartate Amino Transferase 40 U/L (17-59); Bilirubin,Total 0.4 mg/dL (0.2-1.3); Blood Urea Nitrogen 30 mg/dL (9-20); Calcium 8.9 mg/dL (8.4-10.2); Carbon Dioxide 23 mmol/L (22-30); Chloride 100 mmol/L (98-107); Estimated CRCL calculation 74 ml/min; Estimated Glomerular Filt Rate 51; Glucose 147 mg/dL (65-110); Potassium 4.1 mmol/L (3.4-5.0); Sodium 134 mmol/L (137-145)
[2025-03-08 08:28] LABS: Glucose Point of Care 140 mg/dl (65-105)
--- NOTE | 2025-03-08 08:54 | P.DS_ITS ---
DS: Admitting Diagnosis Discharge Date 03/08/2025 Admitting Diagnosis Generalized weakness/Cardiomegaly/shoulder pain DS: Discharge Diagnosis Discharge Diagnosis (1) Shoulder pain, right: Code(s): M25.511 - Pain in right shoulder Status: Acute (2) Cardiomegaly: Code(s): I51.7 - Cardiomegaly Status: Acute Assessment and Plan: (3) Renal mass, right: Code(s): N28.89 - Other specified disorders of kidney and ureter Status: Acute Assessment and Plan: (4) Diabetes: Code(s): E11.9 - Type 2 diabetes mellitus without complications Status: Acute Assessment and Plan: * (5) Diabetic polyneuropathy: Code(s): E11.42 - Type 2 diabetes mellitus with diabetic polyneuropathy Status: Acute (6) Microcytic anemia: Code(s): D50.9 - Iron deficiency anemia, unspecified Status: Acute (7) Hypertension: Code(s): I10 - Essential (primary) hypertension Status: Acute Assessment and Plan: (8) Generalized weakness: Code(s): R53.1 - Weakness Status: Acute DS: Summary Hospital Course Reason for hospitalization: Generalized weakness/Cardiomegaly/shoulder pain Hospital Course: Patient was a 55-year-old male 55 who presented to the emergency department with worsening bilateral lower extremity pain and weakness for the last week as well as just generalized weakness. patient was recently discharged on 02/27/2025 during that hospitalization patient's insulin was resumed after he had stopped taking it for over a year and found to have uncontrolled diabetes with neuropathy. he was also found to have a large right renal mass suspicious for renal carcinoma and was seen by Urology and Oncology was plan to follow up outpatient for either a radical nephrectomy. he did a CTA completed by Oncology which did show no signs of metastasis. Patient reports continued weakness and difficulty with mobility. Patient refused MRI for further evaluation. Complete work-up with neurology 7 days prior who recommended out EMG/NCV. Patient stated he had not called yet to schedule with Urology or Oncology, reports he let his insurance lapse will have new insurance starting on the states he did pick and shovel man his medications and was taking them after discharge. Initial findings emergency department showed anemia which patient chronic history hemoglobin stable at 9.2, other labs were unremarkable for due to his dyspnea a BNP was done which was elevated at 23 10 CXR did not show any concern for pulmonary congestion but did show cardiomegaly. Patient was admitted for further evaluation treatment of generalized weakness and dyspnea. Cardiomegaly: patient readmitted for generalized weakness and shortness of breaths found to have an elevated BNP CXR showed no pulmonary congestion but did show cardiomegaly with minimal pericardial effusion. An echocardiogram showed small pericardial effusion without tamponade, left ventrile mildly dilated and sever eccentric LT ventricular hypertrophy with LVEF 50-55%. Follow-up with [facility] outpatient Pain in right shoulder: Patient on previous admission complained left shoulder pain at which time a CT was completed showing moderate left glenohumeral osteoarthritis with high-grade chondromalacia along superior to posterior glenoid and the left supra spent at this and infraspinatus calcific tendinitis now patient presenting with severe right-sided shoulder pain unable to perform his daily activities tearful with limited range of motion. CT shoulder showing severe osteoarthritis. Resumed patient's pain medication and gave a dose of Toradol for inflammation went ahead and consulted ortho to assist patient on becoming established. Provided with sling and encouraged rest, PT, ICE and heat plan for follow-up out patient with ortho Renal Mass: patient discharged on 02/27/2025 at which time he had seen Urology and Oncology for right large renal mass follow-up CT scan shows unchanged from previous admission it was discussed patient would need either a biopsy or nephrectomy per urology plan was outpatient procedures. will need to call to schedule outpatient Weakness: Patient previous seen by Neurology recommended outpatient under conduction study attempted to do MRI however patient refusing. Patient states he had home health scheduled in for call. After speaking with patient he does not want to go to any rehab services Patient with some improvement to Right shoulder pain and weakness he was educated and encouraged to follow-up [facility] after discharge to schedule his appointments. He acknowledge and agreed to discharge plan. Discharge to home via family Status at Discharge Functional status at discharge: independent ambulation Overall status at discharge: patient is progressing back to baseline Time Spent with Patient Time attestation: Total time spent providing and/or coordinating discharge services: Time spent: Greater than 30 minutes Exam Const: General: comfortable and no acute distress Other: Pleasant male obese and appears older then stated age HENMT: Mouth: Yes moist mucous membranes Eyes: General: appearance normal, both eyes and all related structures Pupils: Equal, round and reactive pupils present Neck: Neck: supple and no JVD Resp: Effort & Inspection: normal respiratory effort Auscultation: clear to auscultation bilaterally Cardio: Rate: tachycardic Rhythm: regular rhythm GI: Auscultation: normal bowel sounds Other: Obese Neuro: General: gait normal Cranial nerves: Yes Equal, round and reactive pupils present Speech: normal speech Motor exam (neuro): Abnormal motor strength present (BLE) Sensory Exam: normal sensation Extrem: General: normal to inspection Other: Full ROM to right shoulder but wiht some pain Psych: Mental Status: mental status grossly normal Affect: normal affect DS: Data Data Completed and Pending Labs on day of discharge: Labs from last 24 hours 03/08/25 03/08/25 03/07/25 08:23 05:33 20:44 WBC 6.6 RBC 3.71 L Hgb 9.1 L Hct 29.6 L MCV 79.8 L MCH 24.5 L MCHC 30.7 L RDW 14.4 Plt Count 374 MPV 9.4 Immature Gran % (Auto) 0.5 Neut % (Auto) 56.2 Lymph % (Auto) 30.5 [place] % (Auto) 10.5 H Eos % (Auto) 1.7 Baso % (Auto) 0.6 Lymph # (Auto) 2.00 [place] # (Auto) 0.7 H Eos # (Auto) 0.1 Baso # (Auto) 0.0 Abs Immat Gran (auto) 0.03 Absolute Neuts (auto) 3.7 Absolute Nucleated RBC 0.000 Nucleated RBC % 0.0 Sodium 134 L Potassium 4.1 Chloride 100 Carbon Dioxide 23 Anion Gap 11 BUN 30 H Creatinine 1.43 H Estim Creat Clear Calc 74 Estimated GFR 51 L Glucose 147 H POC Capillary Glucose 140 H 171 H Calcium 8.9 Total Bilirubin 0.4 AST 40 ALT 44 Alkaline Phosphatase 194 H Total Protein 7.0 Albumin 3.2 L 03/07/25 03/07/25 17:08 12:00 WBC RBC Hgb Hct MCV MCH MCHC RDW Plt Count MPV Immature Gran % (Auto) Neut % (Auto) Lymph % (Auto) [place] % (Auto) Eos % (Auto) Baso % (Auto) Lymph # (Auto) [place] # (Auto) Eos # (Auto) Baso # (Auto) Abs Immat Gran (auto) Absolute Neuts (auto) Absolute Nucleated RBC Nucleated RBC % Sodium Potassium Chloride Carbon Dioxide Anion Gap BUN Creatinine Estim Creat Clear Calc Estimated GFR Glucose POC Capillary Glucose 206 H 132 H Calcium Total Bilirubin AST ALT Alkaline Phosphatase Total Protein Albumin Imaging Radiologist's impression: Radiology Results: ITS Impressions Chest X-Ray 03/05/25 21:25 IMPRESSION: Interstitial changes which may indicate edema versus pneumonitis. Clinical correlation and follow-up advised. Head CT 03/05/25 22:39 IMPRESSION: No acute intracranial findings. Chest/Abdomen/Pelvis CTA 03/05/25 23:41 IMPRESSION: CHEST: 1. No pulmonary embolism. 2. No acute cardiopulmonary pathology. 3. Cardiomegaly with minimal pericardial effusion. ABDOMEN/PELVIS: 1. Right renal mass unchanged from previous examination. 2. Hepatomegaly 3. No evidence of appendicitis, diverticulitis or intestinal obstruction. 4. Small para-aortic lymph nodes with the largest measuring 1.[address] 03/07/25 13:17 IMPRESSION: 1. No fracture. 2. Mild to moderate osteoarthritis. Discharge Plan Discharge Attending physician on discharge: Alireza Piedra Consulting providers: Rehana Briseno; Александр Oates; Blair Olson; Jes Campos; Sahil Stuart Discharging Clinician: Rehana Briseno Anticipated Discharge Date/Time: 03/08/25 08:38 Patient Disposition: Home Activity: as tolerated and other - see discharge instructions Diet: diabetic Discharge Instructions: Generalized Weakness/Shoulder pain: * PT/OT outpatient * may wear sling to effected arm to immobilize * RICE (alternate with cold and warm Compress * May use NSAIDS as needed such as ibuprofen or naproxen * Call to schedule follow-up with orthopedics outpatient information provided below Neuropathy: * Neurology recommends follow-up outpatient and to schedule a EMG/NVC Diabetes: * continue to take your insulin as prescribed * Monitor Blood sugars at home * monitor for hypoglycemia * You will need follow-up with your primary care physician and follow-up A1C in 3 months * recommend yearly eye exam and foot care Renal Mass: * You will need to call and schedule appointments with Urology and oncology for outpatient bone scan and either surgical removal of mass or biopsy. Their information has been provided in this discharge. Recommend immediate scheduling Cardiomegaly (enlarged heart) * Please schedule follow-up with Cardiology for close monitoring * take all medication as prescribed Patient Instructions: Antibiotic Form, Acute Kidney Injury (DC), Chronic Kidney Disease (DC), Osteoarthritis (DC), Pain Management (DC), Renal Cancer (DC), Diabetic Kidney Disease (DC), Shoulder Pain (GEN), Arthritis (DC), Hypertension and Diabetes (DC), Diabetes and Nutrition (DC), Type 2 Diabetes Management for Adults (DC) Patient Language: Lithuanian Stand Alone Forms: General Discharge Information Follow-up/Referrals: Cristóbal Briggs MD [Physician] - Call for Appointment (Will need bone scan Renal carcinoma) Nico Deleon MD [Physician] - Call for Appointment (Bilateral OA of shoulders) Rodrigo Márquez MD [Physician] - Call for Appointment (Call for renal mass biopsy vs nephrectomy) Claire Coleman MD [Physician] - Call for Appointment (Will need EMG/NCV) Discharge Medications: Continued atorvastatin 20 mg Tablet 20 mg PO DAILY Qty: 30 0RF alprazolam 0.25 mg Tablet 0.25 mg PO TID PRN (Reason: Anxiety) Qty: 10 0RF ferrous sulfate 325 mg (65 mg iron) Tablet,Delayed Release (Dr/Ec) 325 mg PO BID Qty: 60 0RF gabapentin 100 mg Capsule 100 mg PO TID Qty: 90 0RF insulin glargine [Lantus Solostar U-100 Insulin] 100 unit/mL (3 mL) insulin pe n 27 unit subcut HS Qty: 30 0RF losartan 25 mg Tablet 25 mg PO DAILY Qty: 30 0RF (DME) blood-glucose meter [OneTouch Verio Flex meter] [facility] Qty: 1 0RF Rx Instructions: May substitute to in-stock meter and/or covered by insurance. Use As Directed (DME) OneTouch Verio test strips Strip Qty: 1 0RF Rx Instructions: May substitute to in-stock and/or covered by insurance strips. Use As Directed (DME) pen needle, diabetic 32 gauge x 5/32 Needle Qty: 1 0RF Rx Instructions: As Directed (DME) lancets [OneTouch Delica Plus Lancet] 30 gauge [facility] [place] Qty: 1 0RF Rx Instructions: May substitute to in-stock and/or covered by insurance lancets. Use As Directed (DME) insulin syringe,safety needle 0.5 mL 31 gauge x 5/16 Syringe Qty: 1 0RF Rx Instructions: As Directed hydrocodone-acetaminophen 5-325 mg tablet 1 tablet PO Q4H PRN (Reason: pain (scale score 4-6)) Qty: 20 0RF oxycodone 10 mg tablet 10 mg PO Q6H PRN (Reason: pain (scale score 7-10)) Qty: 20 0RF Date of admission: 03/06/25 01:29 Primary Care Provider: UNKNOWN,DOCTOR Admitting Provider: Kishore Steiner Attending physician on admission: Alireza Piedra Condition: Stable Quality VTE Prophylaxis VTE prophylaxis: mechanical ordered -Patient's previous records reviewed on admission -ER notes reviewed in detail on admission -discussed all findings and current treatment plan with patient/Family/POA -Consultations reviewed for recommendations -Patient's disposition for safe discharge discussed with residential case manager Dictation performed by [employer] direct speech recognition software, theref ore diesel truck mechanic variants and typographical errors may occur. Hospitalist MIPS Heart Failure (Exclusion) Patient has history of Heart Transplant or Left Ventricular Assistive Device?: No IF YES, STOP HERE Heart Failure (Qualifier) Patient has current or prior documentation of LVEF less than or equal to 40%, or mod/servere depressed LVSF?: No IF NO, STOP HERE
[2025-03-08] MEDS: GABAPENTIN 100 MG CAPSULE PO (09:20)
[2025-03-08] MEDS: LOSARTAN POTASSIUM 25 MG TABLET PO (09:20)
[2025-03-08] MEDS: ALPRAZolam (*CRX) 0.25 MG TABLET PO (09:20)
[2025-03-08] MEDS: FERROUS SULFATE 325 MG TABLET DR PO (09:20)
[2025-03-08] MEDS: KETOROLAC 30 MG/ML VIAL (*BKC) IV PUSH (09:20)
[2025-03-08] MEDS: ATORVASTATIN 20 MG TABLET PO (09:20)
[2025-03-08] MEDS: HYDROcodone/acetaminophen (*CRX) 5-325 MG TABLET 1 TAB PO (10:38)
== END 2025-03-08 11:00 | disposition home or self-care (01) ==
LOC: ANHED 03-06 01:30 → ANH2MED 03-06 04:08
PROVIDERS: Nurse Practitioner Family; Admitting Provider Internal Medicine; Emergency Provider Emergency Medicine; Visit Provider Internal Medicine
DX: I11.9 Hypertensive heart disease without heart failure (principal); M25.511 Pain in right shoulder; M19.012 Primary osteoarthritis, left shoulder; M94.212 Chondromalacia, left shoulder; M75.32 Calcific tendinitis of left shoulder; N28.89 Other specified disorders of kidney and ureter; E11.42 Type 2 diabetes mellitus with diabetic polyneuropathy; D50.9 Iron deficiency anemia, unspecified; R53.1 Weakness; Z20.822 Contact with and (suspected) exposure to COVID-19; Z87.891 Personal history of nicotine dependence; Z79.4 Long term (current) use of insulin; Z79.899 Other long term (current) drug therapy
CPT/HCPCS: 36415; 36600; 70450; 71045; 71275; 73030; 73200; 74177; 80053; 81001; 82550; 82805; 82948; 83605; 83690; 83735; 83880; 84145; 84484; 85018; 85025; 85610; 85730; 87637; 93005; 93306; 96374; 97165; 97535; 99285; A4565; A9270; G0378; J1815; J1885; Q9967